=== PATIENT | male | born 1960 | race African-American/Black ===

== ENCOUNTER 2018-09-09 18:23 | Inpatient (IN) ==
[2018-09-09] MEDS ORDERED: NS 1,000 ML IV ONE (19:16)
--- NOTE | 2018-09-09 19:30 | PROVIDER DOCUMENTATION ---
HPI-General Adult - General Chief Complaint: Altered Mental Status Stated Complaint: AMS/COMBATIVE Time Seen by Provider: 09/09/18 19:15 Source: patient Allergies/Adverse Reactions: Patient Allergies Allergy/AdvReac Type Severity Reaction Status Date / Time No Known Allergies Allergy Verified 09/09/18 20:42 - History of Present Illness -Gen Adult Nature of Presenting Problems: He presents to the ed via ambulance with c/o ams worsening over the past 3 days. He is currently being treated from necrotizing fascititis of the right hip. He is a&ox1. He is unable to present a proper medical hx. a wound is covered on his right hip that is approximately 20cm in diameter with purulent drainage present. He is attempting to bite the nurse, who is at the bedside. [facility] was contacted and the patients attending nurse states that he was treated at for necrotizing fasciitis on 08/23/18 and had a debridement from Dr. Gregorio Del Real. Today he became combative around [id number]. He pulled his wound vac off of his incision site. Location of Pain/Injury: reports: other (right hip) Pain Radiation: reports: no radiation Quality of Pain: reports: sharp Severity: reports: severe Onset/Duration: reports: 3 days ago, 4 days ago Timing: reports: still present Context/Activities at Onset: reports: none Associated Symptoms: reports: fever/chills, rash. denies: back/neck pain, diaphoresis, genitourinary problems, muscle aches, shortness of breath, syncope Similar Symptoms Previously?: Yes Recently seen or treated by another doctor?: No Review of Systems - Adult - REVIEW OF SYSTEMS - ADULT ROS:: unobtainable per condition Constitutional: reports: no symptoms reported Eyes: reports: no symptoms reported Ears, Nose, Mouth & Throat: reports: no symptoms reported Cardiovascular: reports: no symptoms reported Respiratory: reports: no symptoms reported Gastrointestinal: reports: no symptoms reported Genitourinary: reports: no symptoms reported Musculoskeletal: reports: no symptoms reported Integumentary: reports: no symptoms reported Neurological: reports: no symptoms reported Psychiatric: reports: no symptoms reported Endocrine: reports: no symptoms reported Hematologic/Lymphatic: reports: no symptoms reported Allergic/Immunologic: reports: no symptoms reported All Other Systems: Reviewed and Negative Past History - Adult - PAST MEDICAL HISTORY-ADULT Review of Records: reports: Old Records Reviewed, Nursing Assessment Review, Medications Reviewed, Social history reviewed & non-contributory. Major Childhood Illnesses: reports: denies history Cardiovascular: reports: denies history Respiratory: reports: denies history Gastrointestinal: reports: denies history Obstetrical/Gynecological: reports: denies history Genitourinary: reports: denies history Musculoskeletal: reports: denies history Neurological: reports: denies history Endocrine/Immune: reports: denies history Other Conditions: reports: denies history - IMMUNIZATION STATUS Childhood Immunizations: See Nurse Assessment Flu Vaccine: See Nurse Assessment - FAMILY HISTORY Family History: reviewed, not pertinent - SOCIAL HISTORY Smoking: denies Substance Use: alcohol (former) Living Situation: care facility Physical Exam-General - PHYSICAL EXAM-ADULT Initial Vital Signs Reviewed: Yes - CONSTITUTIONAL General Appearance: appears well, alert, no apparent distress - EYES Eyes: PERRL/EOMI - HEAD, EARS, NOSE, MOUTH & THROAT HENMT: normocephalic/atraumatic, moist mucous membranes, normal ENT inspection - NECK Neck: non-tender, full range of motion, supple, normal inspection - RESPIRATORY Respiratory: chest non-tender, lungs clear, normal breath sounds - CARDIOVASCULAR Cardiovascular: normal peripheral pulses, regular rate, rhythm - GASTROINTESTINAL (ABDOMEN) Abdominal Exam: normal bowel sounds, non tender, soft - LYMPHATIC Lymphatic: no adenopathy - MUSCULOSKELETAL Back Exam: normal inspection, no CVA tenderness, no vertebral tenderness Extremity: normal range of motion, non-tender, normal gait, normal inspection - SKIN Integumentary: normal color, normal turgor, other (necrotizing fasciitis to right hip approx 20cm in diameter.) - NEUROLOGIC Neurologic: motor weakness, other (AMS). negative: facial droop, focal weakness - PSYCHIATRIC Psych/Mental Status: disoriented x 3 Progress - PLAN OF CARE/RESULTS Progress/Plan/Lab Results: Orders Category Date Time Status Saline Loc NOW Care 09/09/18 19:16 Active BLOOD CULTURE [BLDCUL] Stat Lab 09/09/18 19:16 Uncollected CBC WITH DIFF [HEME] Stat Lab 09/09/18 19:16 Uncollected COMPREHENSIVE METABOLIC PANEL [CHEM] Stat Lab 09/09/18 19:16 Uncollected LACTATE, PLASMA [CHEM] Stat Lab 09/09/18 19:16 Uncollected WOUND CULTURE INC GRAM STAIN [RM] Stat Lab 09/09/18 19:20 Uncollected 0.9% Sodium Chloride Inj [Ns] 1,000 ml Med 09/09/18 19:16 Active IV 999 mls/hr Result Diagrams: 09/09/18 19:45 09/09/18 19:45 - XRAY 1 XRAY: Bilateral XRAY Study: Chest Impression: Abnormal (COMMENT: There is a PICC line on the right with its tip in the superior vena cava. The right hemidiaphragm is elevated. There are no previous studies. There is apparent atelectasis or fibrosis over the lingula. IMPRESSION: Lingular atelectasis.) Comparison with other Films: no prior study - CT/MRI 1 CT Study: Head Impression: Abnormal (OMMENT: There are no previous studies available for comparison. There is no evidence of mass effect, bleed, abnormal extra-axial fluid collection, or hydrocephalus. There is mild cerebral atrophy. There is some lucency in the external capsules bilaterally consistent with chronic microvascular change. The visualized paranasal sinuses are clear. The calvarium is intact. IMPRESSION: Minimal chronic microvascular changes and mild atrophy. No evidence of acute disease.) Comparison with other Films: no prior study - CONSULTS/PCP/HOSPITALIST Notification #1 *Consult/PCP/Hospitalist*: Dr. Lowe Time Discussed: 21:05 Consult Disposition: Admit Departure - Departure Date of Disposition Decision: 09/09/18 Time of Disposition Decision: 21:01 DIAGNOSIS: Hepatic encephalopathy, Necrotizing fasciitis Altered mental status Qualifiers: Altered mental status type: unspecified Qualified Code(s): R41.82 - Altered mental status, unspecified Disposition: ADMITTED INPATIENT 09 Certified Medical Emergency: Emergent Condition: Stable Referrals and Follow-Ups: None,PCP [Primary Care Provider] - - Critical Care Note This patient required my direct & personal management of CC.: No Attestation - Physician/ BLADIMIR Attestation Patient care was provided by Advanced Practice Provider:: Yes Advanced Practice Provider:: Sami Newsome Advanced Practice Provider documentation review:: The Mid-level provider documentation, treatment plan and medical decision making was reviewed by the physician who agrees with all treatment and medical decision making by the MLP. The physician spent face to face time with patient:: No Advanced Practice Provider documentation review:: Supervising physician onsite and consulted in the evaluation and care of this patient. The physician did not have a face to face encounter with the patient.
[2018-09-09] MEDS ORDERED: BENADRYL IV ONE (20:14)
[2018-09-09] MEDS ORDERED: ATIVAN IV ONE ×2 (20:14→23:06)
[2018-09-09 20:40] LABS: BASO# 0.05 X1000 (0.0-0.2); BASO% 0.5 % (0.0-0.8); EOS# 0.42 X1000 (0.0-0.7); EOS% 3.9 % (0.0-10.0); HEMATOCRIT 27.6 % (42.0-52.0); HEMOGLOBIN 8.4 g/dL (14.0-18.0); IMM GRAN# 0.02 X1000 (0.0-0.04); IMM GRAN% 0.2 % (0.0-0.5); LYMPH# 1.96 X1000 (1.2-3.4); LYMPH% 18.3 % (20.5-51.1); MCH 32.6 PG (27-31); MCHC 30.4 g/dL (33-37); MONO# 0.95 X1000 (0.11-0.59); MONO% 8.9 % (1.7-9.3); MPV 9.9 FL (7.4-10.4); NEUT# 7.33 X1000 (1.4-6.5); NEUT% 68.2 % (42.2-75.2); PLT 350 X1000 (130-400); RBC 2.58 XMIL (4.7-6.1); WBC 10.73 X1000 (4.8-10.8)
[2018-09-09 20:49] LABS: UR AMPHETAMINES QUAL NONE DETECTED (NONE DETECT); UR BARBITUATES QUAL NONE DETECTED (NONE DETECT); UR BENZODIAZEPIN QUAL PRESUMPTIVE POSITIVE (NONE DETECT); UR CANNABINOIDS QUAL NONE DETECTED (NONE DETECT); UR COCAINE QUAL NONE DETECTED (NONE DETECT); UR METHADONE QUAL NONE DETECTED (NONE DETECT); UR OPIATES QUAL PRESUMPTIVE POSITIVE (NONE DETECT); UR OXYCODONE QUAL PRESUMPTIVE POSITIVE (NONE DETECT); UR PCP QUAL NONE DETECTED (NONE DETECT)
--- NOTE | 2018-09-09 20:51 | Diag Imaging Result Doc PS360 ---
EXAM: CHEST-PORTABLE 09/09/2018 HISTORY: ams TECHNIQUE: AP portable at 2026 COMMENT: There is a PICC line on the right with its tip in the superior vena cava. The right hemidiaphragm is elevated. There are no previous studies. There is apparent atelectasis or fibrosis over the lingula. IMPRESSION: Lingular atelectasis. Electronically signed by Alex Messer 09/09/2018 8:48 PM
[2018-09-09 20:53] LABS: ALB/GLOB RATIO 0.9; ALBUMIN 3.1 g/dL (3.5-5.0); CALCIUM 8.9 mg/dL (8.8-10.2); CREATININE 3.6 mg/dL (0.7-1.2); POTASSIUM 4.4 mmol/L (3.5-5.1); TOTAL BILIRUBIN 0.87 mg/dL (0.20-1.00); TOTAL PROTEIN 6.6 g/dL (6.3-8.3)
--- NOTE | 2018-09-09 20:54 | Diag Imaging Result Doc PS360 ---
EXAM: CT HEAD W/O CONTRAST 09/09/2018 HISTORY: ams TECHNIQUE: This exam was performed using automated exposure control, adjustment of mA or kV according to patient size, and/or use of iterative reconstruction technique. COMMENT: There are no previous studies available for comparison. There is no evidence of mass effect, bleed, abnormal extra-axial fluid collection, or hydrocephalus. There is mild cerebral atrophy. There is some lucency in the external capsules bilaterally consistent with chronic microvascular change. The visualized paranasal sinuses are clear. The calvarium is intact. IMPRESSION: Minimal chronic microvascular changes and mild atrophy. No evidence of acute disease. Electronically signed by Alex Messer 09/09/2018 8:52 PM
[2018-09-09] MEDS ORDERED: VANCOMYCIN IV PER PHARMACY MISC SCH (22:42)
[2018-09-09] MEDS ORDERED: ZOFRAN IV PRN (22:42)
[2018-09-10] MEDS: NS 1,000 ML IV SCH ×2 (00:29→10:52)
[2018-09-10] MEDS: MAXIPIME 2 GM in NS 100 ML IV SCH ×3 (00:29→21:56)
--- NOTE | 2018-09-10 01:10 | HISTORY AND PHYSICAL ---
PRIMARY CARE PHYSICIAN: Unknown. CHIEF COMPLAINT: Altered mental status. HISTORY OF PRESENTING ILLNESS: A 58-year-old male with a history of necrotizing fasciitis, right hip ulcer, coronary artery disease, diabetes mellitus type 2, hep C, CHF, chronic kidney disease, who was at [facility]. Was sent from that facility due to patient being altered, agitated, pulling off his wound VAC and subsequently he was brought to the emergency department. At the ED he was evaluated. He was moderately altered. Not much history could be obtained from him and most of the history is obtained from previous ER charting. PAST MEDICAL HISTORY: Necrotizing fasciitis, right hip ulcer, coronary artery disease, diabetes mellitus type 2 on insulin, alcohol abuse, hep C, hypertension, anemia, CHF, diastolic dysfunction, anemia unspecified, chronic kidney disease. PAST SURGICAL HISTORY: Unknown. ALLERGIES: No known drug allergies. CURRENT MEDICATIONS: Include Aldactone 25 mg half tablet p.o. daily, aspirin 81 mg p.o. daily, atorvastatin 20 mg p.o. at bedtime, Coreg 6.25 mg p.o. b.i.d., cefepime 2 g IV q.12 hours, Plavix 75 mg p.o. daily, gabapentin 300 mg p.o. t.i.d., lisinopril 10 mg p.o. daily, isosorbide mononitrate ER 30 mg p.o. daily, [place] 5 mg 1 p.o. q.6 hours, Protonix 20 mg p.o. daily, Seroquel 25 mg p.o. at bedtime, vancomycin dose unknown. SOCIAL HISTORY: Unknown except for patient has a history of alcohol abuse. FAMILY HISTORY: Unknown. REVIEW OF SYSTEMS: Unable to obtain due to patient being altered. PHYSICAL EXAMINATION: GENERAL: The patient seems somewhat lethargic and altered. VITAL SIGNS: Temperature 99.3 degrees, pulse 97, respirations 20, blood pressure 107/89. HEENT: Atraumatic, normocephalic. NECK: No masses. CHEST: Rhonchi. CARDIOVASCULAR: Regular rate and rhythm. ABDOMEN: Soft, positive bowel sounds. EXTREMITIES: There is a right hip ulcer. GENITOURINARY: No bladder distention. SKIN: Warm. NEUROLOGIC: He is moderately altered and confused. LABORATORIES AND STUDIES: WBC 10.73, hemoglobin 8.4, hematocrit 27.6, platelets 350,000. Sodium 142, potassium 4.4, chloride 114, CO2 is 12, BUN is 39, creatinine 3.6, glucose is 127. Toxicology shows opioids, oxycodone and benzodiazepines. ASSESSMENT: A 58-year-old male with a history of multiple medical problems including necrotizing fasciitis, right hip ulcer, coronary artery disease, diabetes mellitus type 2, hepatitis C, congestive heart failure, chronic kidney disease, who apparently was at [facility] when he was agitated, pulled off his wound VAC, is mildly confused. He was brought to the emergency department. He was evaluated here. He seemed moderately altered and subsequently he will require admission for further management. 1. Altered mental status, multifactorial. 2. Necrotizing fasciitis. 3. Right hip ulcer. 4. Diabetes mellitus type 2, on insulin. 5. Hypertension. 6. Anemia, unspecified. 7. Chronic kidney disease. PLAN: 1. We will admit patient to ICU. 2. We will continue with neuro checks closely. 3. We will obtain urine sample and check blood cultures and start patient on his IV antibiotics. 4. We will put a wound VAC to his right hip region. 5. Put patient on glycemic protocol with sliding scale insulin regimen. 6. We will monitor his hemoglobin and hematocrit closely and check iron studies. 7. Monitor blood pressure closely. 8. Restart other home medications. 9. We will put DVT prophylaxis with SCDs. 10. We will continue to follow, and reassess and make further recommendation based on his clinical course. cc: Charli Lowe MD
[2018-09-10] MEDS ORDERED: VANCOMYCIN 1,750 MG in NS 250 ML IV SCH (02:30)
[2018-09-10] MEDS ORDERED: HUMULIN R SUBQ SCH (07:00)
[2018-09-10 08:30] LABS: CREATININE 3.6 mg/dL (0.7-1.2); POTASSIUM 4.4 mmol/L (3.5-5.1)
[2018-09-10 08:48] LABS: BASO# 0.05 X1000 (0.0-0.2); BASO% 0.6 % (0.0-0.8); EOS# 0.35 X1000 (0.0-0.7); HEMATOCRIT 30.1 % (42.0-52.0); HEMOGLOBIN 9.1 g/dL (14.0-18.0); LYMPH# 1.97 X1000 (1.2-3.4); LYMPH% 22.5 % (20.5-51.1); MCH 32.6 PG (27-31); MCHC 30.2 g/dL (33-37); MCV 107.9 FL (81-99); MONO# 0.83 X1000 (0.11-0.59); MONO% 9.5 % (1.7-9.3); MPV 9.5 FL (7.4-10.4); NEUT# 5.57 X1000 (1.4-6.5); NEUT% 63.4 % (42.2-75.2); PLT 332 X1000 (130-400); RBC 2.79 XMIL (4.7-6.1); RDW 14.2 % (11.5-14.5); WBC 8.77 X1000 (4.8-10.8)
[2018-09-10 08:56] LABS: BANDS 4 % (0-1); LYMPHS 22 % (21-51); MONO 12 % (1-9); SEGS 62 % (42-75)
[2018-09-10] MEDS: DILAUDID IV PRN ×2 (15:33→23:25)
--- NOTE | 2018-09-10 17:28 | PROGRESS NOTE ---
DATE: 09/10/2018 SUBJECTIVE: The patient is confused. OBJECTIVE: Vital Signs: As follows: Temperature is 97.4, pulse 91, respiratory 16, blood pressure 103/57, oxygen 99%. HEENT: Atraumatic, normocephalic. Cardiovascular : S1, S2. Respiratory system: Has evidence of good air entry bilaterally. Abdomen: Soft , nontender. No masses felt. Extremities: Has left BKA, as well as edema in the right lower extremity. Has a large wound on the right hip area. LABORATORY DATA: WBC is 8.8, hematocrit 30.1, with a platelet count of 232, 000. Sodium is 148, potassium 4.4, chloride is 181, bicarb is 11, BUN is 38, creatinine is 2.6. AST 18, ALT is 102, Ammonia level was 62. ASSESSMENT AND PLAN: 1. Encephalopathy. Patient's ammonia level is noted to be raised. Will start patient on lactulose. We will obtain an MRI of the brain. 2. Chronic kidney disease. Follow up on renal function. Will order nephrotoxic agent. 3. Right hip ulcer. Follow up on wound culture. Maintain patient on antibiotics. 4. Diabetes mellitus. Maintain patient on sliding scale insulin and monitor blood sugar levels. 5. Hypertension. Blood pressure on the low side. Will avoid antihypertensive medications at this time. 6. Abnormal liver function tests. Obtain hepatitis panel, ARAMIS level, ferritin level and also abdominal ultrasound. 7. Anemia. Follow up on hemoglobin, hematocrit. Transfuse PRBCs as needed. 8. DVT prophylaxis. SCDs. cc: Taiwo Camacho MD MTDJoseph
--- NOTE | 2018-09-10 18:16 | Diag Imaging Result Doc PS360 ---
EXAM: US ABDOMEN-COMPLETE 09/10/2018 HISTORY: abn lfts TECHNIQUE: Abdominal ultrasound COMMENT: The pancreatic head and body are unremarkable in appearance. The aorta and inferior vena cava are normal in their visible. The liver is inhomogeneous hyperechoic. There is antegrade flow in the portal vein. The gallbladder is clear and nontender. The common bile duct measures 4 mm. The kidneys are without evidence of hydronephrosis or mass. The spleen is not enlarged. There are no abnormal fluid collections. IMPRESSION: Hepatic steatosis. No evidence of acute disease. Electronically signed by Alex Messer 09/10/2018 6:13 PM
--- NOTE | 2018-09-10 20:03 | GENERAL SURGERY CONSULTATION ---
DATE: 09/10/2018 HPI: This 58-year-old gentleman with a history of hepatitis C is at [facility]. He at some point in the past had debridement of a right hip necrotizing fasciitis and has been treated with wound VAC therapy, became agitated today, possibly encephalopathic and pulls wound VAC off and he is transferred here for management of altered mental status. REVIEW OF SYSTEMS: Limited but 10 point negative other what mentioned HPI. MEDICAL HISTORY: Necrotizing fasciitis, chronic wound in his right hip, coronary disease, hepatitis C, diabetes, hypertension, history of alcohol abuse, chronic kidney disease, heart failure. SURGICAL HISTORY: Excisional debridement right hip otherwise unclear. SOCIAL HISTORY: He does have a history of alcohol use. FAMILY HISTORY: Unobtainable. PHYSICAL EXAM: He is afebrile, pulse is in the 80s, blood pressure 117/60, oxygen saturation 98%.General: He is alert. HEENT: No scleral icterus. Cardiovascular: Normal rate. Pulmonary: No increased work of breathing. Abdomen: Soft. Integument: Warm, dry. Musculoskeletal: There is a large granulating hip wound to the right greater trochanteric area. There is no necrosis and no purulence. Lower extremities are well perfused. Neurologic: He is alert, somewhat conversant but does not really answer questions entirely appropriately. Psychiatric: A little agitated. LAB: White count is 8, hematocrit 30, platelets 332,000. Creatinine is 3.6, bilirubin is normal, AST, ALT and alkaline phosphatase are elevated, ammonia is 62, lactate 0.8, albumin is 3.1. UDS is positive for oxycodone, benzodiazepines. CT of the head shows chronic microvascular changes and atrophy. ASSESSMENT AND PLAN: A 58-year-old gentleman with a large right hip wound, he presented with altered mental status most likely hepatic encephalopathy. Will ask Isabela Medina to place wound VAC back on his wound yesterday. I do not have any the surgical records not sure where this was performed but will continue to follow along. cc: Lynn Groves MD
[2018-09-10] MEDS: LACTULOSE PO SCH (20:38)
[2018-09-11] MEDS ORDERED: HALDOL IV ONE (00:19)
[2018-09-11] MEDS ORDERED: HALDOL ONE (00:29)
[2018-09-11 05:38] LABS: ALB/GLOB RATIO 0.9; ALBUMIN 3.1 g/dL (3.5-5.0); CALCIUM 9.2 mg/dL (8.8-10.2); CREATININE 3.1 mg/dL (0.7-1.2); POTASSIUM 4.2 mmol/L (3.5-5.1); TOTAL BILIRUBIN 0.85 mg/dL (0.20-1.00); TOTAL PROTEIN 6.6 g/dL (6.3-8.3)
[2018-09-11 05:55] LABS: BASO# 0.08 X1000 (0.0-0.2); BASO% 0.5 % (0.0-0.8); EOS# 0.32 X1000 (0.0-0.7); HEMATOCRIT 28.8 % (42.0-52.0); HEMOGLOBIN 8.5 g/dL (14.0-18.0); IMM GRAN# 0.04 X1000 (0.0-0.04); IMM GRAN% 0.3 % (0.0-0.5); LYMPH% 22.4 % (20.5-51.1); MCH 32.6 PG (27-31); MCHC 29.5 g/dL (33-37); MCV 110.3 FL (81-99); MONO# 1.35 X1000 (0.11-0.59); MONO% 8.6 % (1.7-9.3); MPV 9.5 FL (7.4-10.4); NEUT# 10.34 X1000 (1.4-6.5); NEUT% 66.2 % (42.2-75.2); PLT 371 X1000 (130-400); RBC 2.61 XMIL (4.7-6.1); RDW 14.6 % (11.5-14.5); WBC 15.63 X1000 (4.8-10.8)
[2018-09-11] MEDS: LACTULOSE PO SCH ×5 (09:32→22:32)
[2018-09-11] MEDS: STERILE WATER INJ. INJ PRN ×2 (10:00→20:36)
[2018-09-11] MEDS: GEODON IM PRN ×2 (10:00→20:36)
[2018-09-11] MEDS: MAXIPIME 2 GM in NS 100 ML IV SCH ×2 (10:05→21:35)
[2018-09-11] MEDS: DILAUDID IV PRN ×3 (10:08→21:50)
[2018-09-11] MEDS ORDERED: NS 1,000 ML IV SCH (12:45)
--- NOTE | 2018-09-11 14:38 | GENERAL SURGERY PROGRESS NOTE ---
DATE: 09/11/2018 SUBJECTIVE: Remains agitated, encephalopathic. No fevers. OBJECTIVE: Vital Signs: Pulse has been in low 100s, blood pressure 103/58. Apparently, there are some questions whether or not this may be drug withdrawal. LABORATORY: Review of his labs: White count is 15, hematocrit 28, creatinine is 3.1. PHYSICAL EXAMINATION: General: Right wound dressing is in place. He is agitated, restrained. Cardiovascular: Tachycardic. Exam: There is no purulence from his wound. ASSESSMENT AND PLAN: A 58-year-old gentleman with right hip wound, apparently status post excisional debridement for necrotizing process in the past. He is encephalopathic and likely withdrawing from some medication that he is taking illicitly. Will place a wound VAC. I have talked to Isabela about him. Otherwise, continue local wound care, medical management. cc: Lynn Groves MD
--- NOTE | 2018-09-11 14:54 | CONSULTATION ---
DATE OF CONSULTATION: 09/11/2018 Mr. Boyce is 58 years old, and he was admitted with altered mental state. There is reported previous history of ethanol abuse, and he presented at this time with urine drug screen positive for opiates, including oxycodone, also benzodiazepines. The medication [facility] does not include a benzodiazepine and did include hydrocodone/acetaminophen, but not specifically oxycodone. Report is that he appeared to be restless, agitated, and confused. Workup here includes noncontrast CT of the head showing usual subcortical white matter changes. WBC count was initially 10,000, later 15,000. There is anemia. BUN has been elevated at 39, 40. He has mildly elevated blood sugars. Chemistry profile shows elevated liver enzymes. Ammonia in the 60s. I believe that MRI has been ordered but not done. He has been managed here with hydromorphone 0.5 mg 3 doses in the last 24 hours, haloperidol a few doses p.r.n., ziprasidone. I do not see any benzodiazepine listed administered this admission here. On exam, Mr. Boyce is awake. He seems alert but not attentive and he did not communicate. He did not speak when spoken to. He said a few words, but these were not in the form of communication with me at the bedside. He has full lateral eye movement spontaneously. He vigorously resisted my attempts at pupil exam. Facial motility is symmetric. Head and neck are unremarkable. There is no meningismus. He has good power in the limbs. There has been prior left distal leg amputation. Plantar response is silent on the other foot. IMPRESSION: Global encephalopathy, uncertain etiology, but features are consistent with delirium related to drug withdrawal, either ethanol and/or benzodiazepine. Other reasons for encephalopathy are not excluded. In light of his prior history as recorded, I suspect he may have a baseline cognitive impairment syndrome which would predispose him to more prominent and more protracted encephalopathy with any toxic or metabolic disturbance. I do not see evidence of MEDIA AID infection , increased intracranial pressure, focal neurologic deficit. I do not think we have to do anything urgently from a neurologic standpoint. MRI can be done when practical. We might consider EEG later but I do not think that would jacket changer today. Thanks for asking Neurology to see Mr. Boyce. cc: MD MARY Yuen III
--- NOTE | 2018-09-11 15:06 | EKG Report ---
Test Performed on : 09/09/2018 10:21:59 PM Test Reason : ED. No order in [place] Blood Pressure : / mmHG Vent. Rate : 104 BPM Atrial Rate : 104 BPM P-R Int : 154 ms QRS Dur : 074 ms QT Int : 366 ms P-R-T Axes : 035 056 103 degrees QTc Int : 481 ms Sinus tachycardia. with premature atrial complexes. with aberrant conduction. Nonspecific ST and T wave abnormality Abnormal ECG No previous ECGs available Confirmed by Gregorio Pendleton MD ([id number]) on 09/11/2018 3:55:01 PM
[2018-09-11] MEDS: HALDOL IM PRN ×2 (15:13→23:59)
--- NOTE | 2018-09-11 16:40 | PROGRESS NOTE ---
DATE: 09/11/2018 SUBJECTIVE: Patient is confused. OBJECTIVE: Vital Signs: Temperature is 96.6 degrees, pulse 103, blood pressure is 103/60, oxygen is 100%. HEENT: Atraumatic, normocephalic. Cardiovascular: S1, S2. Respiratory: Has evidence of good air entry bilaterally. Abdomen: Soft, nontender, no masses felt. Extremities: Left BKA. LABS: WBC is 15.63, hematocrit 28.8 with a platelet count of 273,000, sodium is 149, potassium 4.2, chloride 120, bicarb 10, BUN is 40, creatinine 3.1, AST 59, ALT 68, ammonia level is 63. ASSESSMENT AND PLAN: 1. Encephalopathy. Patient's ammonia level still raised. We will maintain patient on lactulose. MRI of the brain still pending. 2. Chronic kidney disease. Follow up on renal function. Avoid nephrotoxic agent. 3. Right hip ulcer. Wound Care consulted, surgery evaluation done. 4. Diabetes mellitus. Continue blood sugar monitoring as well as sliding scale insulin. 5. Hypertension. Will hold off on antihypertensive medications at this time. 6. Abnormal liver function test. Hepatitis panel pending, ARAMIS level is negative. Abdominal ultrasound shows a hepatic steatosis. 7. Anemia, follow up on hemoglobin, hematocrit, transfuse PRBC as needed. 8. Deep vein thrombosis prophylaxis SCD. cc: Taiwo Camacho MD MTDD
[2018-09-11] MEDS ORDERED: LASIX IV ONE (17:06)
[2018-09-11] MEDS: NS 1,000 ML IV SCH (17:18)
[2018-09-11 21:34] LABS: HEPATITIS PROFILE ACUTE SEE COMMENTS
[2018-09-12] MEDS ORDERED: VANCOMYCIN 1,800 MG in NS 250 ML IV SCH (05:00)
[2018-09-12] MEDS: NS 1,000 ML IV SCH (05:07)
[2018-09-12] MEDS: LACTULOSE PO SCH (05:52)
--- NOTE | 2018-09-12 07:05 | Diag Imaging Result Doc PS360 ---
EXAM: CHEST-PORTABLE 09/11/2018 HISTORY: NG tube placement TECHNIQUE: AP upright portable at 2308 COMMENT: There is an NG tube with its tip in the body of the stomach. IMPRESSION: NG tube in the stomach. Electronically signed by Alex Messer 09/12/2018 7:03 AM
--- NOTE | 2018-09-12 07:06 | Diag Imaging Result Doc PS360 ---
EXAM: CHEST/ABD TUBE PLACEMENT 09/11/2018 HISTORY: Retake for md TECHNIQUE: AP portable at 2352 COMMENT: There is an NG tube with its tip in the stomach. IMPRESSION: NG tube in the stomach. Electronically signed by Alex Messer 09/12/2018 7:03 AM
[2018-09-12] MEDS: HALDOL IM PRN (07:45)
[2018-09-12] MEDS: DILAUDID IV PRN ×2 (07:45→14:39)
--- NOTE | 2018-09-12 08:20 | Diag Imaging Result Doc PS360 ---
EXAM: CHEST-PORTABLE 09/12/2018 HISTORY: dyspnea TECHNIQUE: AP portable at 0757 COMMENT: The right hemidiaphragm is elevated as it was on 09/09/2018. There has been no significant change in the appearance of the chest since that time. IMPRESSION: Stable chest. Electronically signed by Alex Messer 09/12/2018 8:17 AM
[2018-09-12 08:24] LABS: ALLEN TEST YES; BE -20.9 mmoll (-3.0-3.0); BLOOD TYPE ARTERIAL; HCO3-(ACT) 8.6 mmoll (20.0-26.0); METHB 1.6 % (0.0-1.5); O2(CT) 12.5 mL/dL (15.0-23.0); O2HB 95.5 % (95.0-99.0); PCO2(98.6) 23 mmHg (35-45); PO2(98.6) 98 mmHg (60-100); SAMPLE BLOOD; SAO2 98.8 % (95.0-100.0); THB 9.2 g/dL (11.5-17.4)
[2018-09-12 08:30] LABS: MODALITY ROOM AIR
[2018-09-12] MEDS ORDERED: SODIUM BICARBONATE 8.4% IV PUSH ONE (08:49)
[2018-09-12] MEDS ORDERED: CUBICIN 500 MG in NS 100 ML IV SCH ×4 (09:15)
[2018-09-12 09:21] LABS: INR 1.18; PROTIME 15.9 Seconds (11.0-16.0)
[2018-09-12 09:25] LABS: HEMOGLOBIN A1C 7.7 % (4.8-6.0)
[2018-09-12 09:45] LABS: BASO# 0.03 X1000 (0.0-0.2); BASO% 0.3 % (0.0-0.8); HEMATOCRIT 29.9 % (42.0-52.0); HEMOGLOBIN 8.6 g/dL (14.0-18.0); LYMPH# 1.51 X1000 (1.2-3.4); LYMPH% 15.3 % (20.5-51.1); MCH 32.5 PG (27-31); MCHC 28.8 g/dL (33-37); MCV 112.8 FL (81-99); MONO# 0.97 X1000 (0.11-0.59); MONO% 9.9 % (1.7-9.3); MPV 9.9 FL (7.4-10.4); NEUT# 7.23 X1000 (1.4-6.5); NEUT% 73.5 % (42.2-75.2); PLT 314 X1000 (130-400); RBC 2.65 XMIL (4.7-6.1); RDW 14.9 % (11.5-14.5); WBC 9.84 X1000 (4.8-10.8)
[2018-09-12 09:46] LABS: ALB/GLOB RATIO 1.1; ALBUMIN 3.1 g/dL (3.5-5.0); MAGNESIUM 1.5 mg/dL (1.5-2.7); PHOSPHORUS 6.1 mg/dL (2.7-4.5); TOTAL BILIRUBIN 0.72 mg/dL (0.20-1.00); TOTAL PROTEIN 5.8 g/dL (6.3-8.3)
--- NOTE | 2018-09-12 09:50 | CONSULTATION ---
DATE OF CONSULTATION: 09/12/2018 CONCLUSION: The patient has one of two blood cultures positive for Enterococcus faecium. This could be a contaminant or it could be a pathogen. I suspect that it is a pathogen. The patient does have a PICC and the Enterococcus could have come from the PICC. Also, the patient had a severe infection in his right hip and a culture taken from the hip is growing an organism. It is a gram-positive coccus and it may be the same Enterococcus that is in the patient's blood. RECOMMENDATIONS: Pending further culture results, I have switched the patient from vancomycin and cefepime to daptomycin. I have modified the patient's dose of daptomycin because of his renal failure. DISCUSSION: The patient is delirious. He is unable to provide a history and no family member is present. According to chart, the patient was admitted to the hospital with an altered mental status. He had recently a necrotizing fasciitis involving the right hip. He appears to be recovering well from that. His CBC shows a white count of 15,630, hemoglobin 8.5, and platelet count 371,000. The creatinine is 3.1. GFR is 25. The patient's blood gases show a pH of 7.1, pO2 of 98, and a pCO2 of 23. Chest x-ray shows lingular atelectasis. One of two blood cultures grew Enterococcus and the right hip is growing two types of gram-positive cocci. CT scan of the head showed microvascular changes and atrophy. PAST MEDICAL HISTORY: Positive for necrotizing fasciitis, right hip ulcer, coronary artery disease, diabetes mellitus, alcohol abuse, hepatitis C, hypertension, anemia, congestive heart failure, anemia, and chronic kidney disease. PAST SURGICAL HISTORY: Not known for sure but if the patient indeed had a necrotizing fasciitis, he would have required probably multiple surgeries on that problem. ALLERGIES: The patient has no known drug allergies. HOME MEDICATIONS: Include Aldactone, aspirin, atorvastatin, Coreg, cefepime, Plavix, gabapentin, lisinopril, Isordil, [place], Protonix, Seroquel. SOCIAL HISTORY: The patient has a history of alcohol abuse. FAMILY HISTORY: Unknown. PHYSICAL EXAMINATION: Vital Signs: Temperature is 98 degrees, pulse 107, respirations 29, blood pressure 111/77. The patient is 58 years old. He is 5 feet 11 inches tall and weighs 200 pounds. General: This is a delirious, middle-aged male. He is in no acute distress, however. Head, Eyes, Ears, Nose, and Throat: No drainage noted from the nose or ears. I did not get a good look at the patient's mouth. From what I did see, I did not see any white patches on his tongue. Neck: No stiffness. Lungs: Clear to auscultation. Cardiovascular: Regular heart rate. Abdomen: Soft and nontender. Bone, Joints, and Muscles: The patient has a large wound on the right hip. The VAC is in place over the wound. A picture of it showed that the wound had beefy red tissue and there was nothing that appeared to be purulent or necrotic. The patient has a left [id number] amputation. Neurologic: The patient, as mentioned above, seems delirious. He did not follow requests to move his extremities or close his eyes. Integument: No rash noted. Thank you for the consult. cc: Segun Coffey MD
[2018-09-12] MEDS: SODIUM BICARBONATE 8.4% 150 MEQ in D5W 1,000 ML IV SCH ×2 (10:00→22:02)
[2018-09-12] MEDS ORDERED: MAGNESIUM SULFATE 1 GM/D5W 1 GM/100 ML IVPB IV ONE (10:11)
[2018-09-12] MEDS ORDERED: HUMULIN R 100 UNIT in NS 99 ML IV SCH (10:48)
[2018-09-12] MEDS ORDERED: ZOFRAN PO PRN (10:48)
[2018-09-12] MEDS ORDERED: HUMULIN R IV ONE (10:48)
[2018-09-12] MEDS ORDERED: D50W SYRINGE IV PRN (10:48)
[2018-09-12 10:52] LABS: BANDS 2 % (0-1); EOS 4 % (1-10); LYMPHS 16 % (21-51); MONO 4 % (1-9); SEGS 74 % (42-75)
[2018-09-12 10:53] LABS: HYPOCHROM 1+
--- NOTE | 2018-09-12 11:18 | Diag Imaging Result Doc PS360 ---
EXAM: KUB ABDOMEN 09/12/2018 HISTORY: abdominal pain TECHNIQUE: KUB COMMENT: There is generalized sclerosis of the regional skeleton particularly in the pelvis. This is somewhat heterogeneous in the left femoral head. There are calcifications in the vasa deferentia. There is no evidence of bowel obstruction organomegaly or mass. There are stents in both superficial femoral arteries. IMPRESSION: Osteosclerosis. This may be result of secondary hyperparathyroidism, however the possibility of osseous metastatic disease cannot be excluded. No evidence of bowel obstruction. Electronically signed by Alex Messer 09/12/2018 11:15 AM
[2018-09-12 14:02] LABS: ALLEN TEST YES; BLOOD TYPE ARTERIAL; HCO3-(ACT) 11.6 mmoll (20.0-26.0); METHB 1.3 % (0.0-1.5); O2HB 90.6 % (95.0-99.0); PCO2(98.6) 30 mmHg (35-45); PO2(98.6) 60 mmHg (60-100); SAMPLE BLOOD; SAO2 93.5 % (95.0-100.0); THB 9.4 g/dL (11.5-17.4)
[2018-09-12 14:03] LABS: MODALITY ROOM AIR; pH(98.6) 7.15 (7.35-7.45)
[2018-09-12 14:04] LABS: CREATININE 3.8 mg/dL (0.7-1.2); MAGNESIUM 1.7 mg/dL (1.5-2.7); PHOSPHORUS 5.9 mg/dL (2.7-4.5); POTASSIUM 4.5 mmol/L (3.5-5.1)
[2018-09-12] MEDS: ATIVAN IV PRN (14:40)
--- NOTE | 2018-09-12 14:43 | NEPHROLOGY CONSULTATION ---
DATE: 09/12/2018 REASON FOR ADMISSION: Altered mental status. REASON FOR CONSULTATION: Acute kidney injury associated with severe acidosis. CONSULTING PHYSICIAN: Dr. Marija Gonzalez. HISTORY OF PRESENT ILLNESS: Mr. Boyce is a 58-year-old male, who has a been followed for necrotizing fasciitis by the wound clinic. The patient is a resident at [facility]. He was sent from this facility with altered mental status, severe agitation and pulling his wound VAC off of his right hip. In the emergency room he was evaluated and was found to have a white count of 10.7, BUN of 39, creatinine of 3.6. Toxicology showed positive for opioids, oxycodone, and benzodiazepines. He was hypotensive in the emergency room and, due to his altered mental status with necrotizing fasciitis, the patient was admitted to ICU. During his hospitalization, Dr. Groves has been consulted for evaluation and continued treatment of his right hip fasciitis. Dr. Segun Coffey has been consulted earlier this morning for assistance with antibiotics for blood cultures with positive Enterococcus faecium and wound culture with gram- positive cocci. Dr. Murray has been consulted for his continued encephalopathy and agitation. PAST MEDICAL HISTORY: Noted to be current treatment for necrotizing fasciitis to right hip ulcer, coronary artery disease, diabetes mellitus type 2 insulin dependent, alcohol abuse, hepatitis C, hypertension, anemia, congestive heart failure, diastolic dysfunction, anemia, unspecified chronic kidney disease although we have no old records. PREVIOUS SURGICAL HISTORY: Unknown with continued treatment and debridement of his right hip. SOCIAL HISTORY: Unknown. He is a resident of [facility]. FAMILY HISTORY: Unknown. ALLERGIES: Listed as no known drug allergies. HOME MEDICATIONS: Home medications include Aldactone, aspirin, atorvastatin, Coreg, cefepime, Plavix, gabapentin, lisinopril, isosorbide mono titrate, [place], Protonix, Seroquel, and vancomycin 1 dose this a.m. REVIEW OF SYSTEMS: Unable to obtain secondary to patient being sedated. He is currently restrained. No family is at the bedside. VITAL SIGNS: Temperature 96.6 degrees, blood pressure 138/54, heart rate 102, respirations are 30. He remains tachypneic. He has had 2600 in, 770 out with 370 to Arredondo catheter and 400 to his fecal bag. LABS: Sodium 150, potassium 5, chloride 124, CO2 8, BUN 47, creatinine 4, glucose 132 anion gap of 18, calcium 9, phosphorus 6.1, albumin 2.7. The patient's white count is 9.84, hemoglobin 8.6, hematocrit 29.9 with a platelet count of 314. ABGs: A pH 7.10, CO2 23, PO2 98 , bicarbonate 8.6, lactate of 0.8. This was on room air. He is currently on O2. The patient had a BNP greater than 35,000. He had serum acetone this morning showing small. IMAGING: Chest x-ray completed this a.m. shows stable. KUB shows osteosclerosis with questionable mets to the osseous. He does have old bilateral femoral stents. PHYSICAL EXAMINATION: General: This is a 58-year-old male resting quietly in bed. He is in no acute distress. He is currently sedated with bilateral upper wrist restraints. HEENT: Normocephalic, atraumatic. Conjunctiva is pale. Currently has dysconjugate pupils. Neck: Supple. Trachea midline. Unable to determine JVD. Cardiovascular: He is regular rate and rhythm on the monitor, tachycardic at times. Chest: He does have coarse breath sounds bilateral. Equal excursion. He is tachypneic. He is using his accessary muscles. Abdomen: Soft. Positive bowel sounds, hypoactive. Genitourinary: Arredondo catheter is in place. He has minimal urine out, approximately 200 today's shift. Extremities: He has a dressing to the right hip. Warm and dry. He has a left BKA. Abrasions and scarring are noted to the crowder on the right. Neurological: As above. ASSESSMENT AND PLAN: 1. Acute kidney injury. This appears to be possibly multifactorial. We will check urine electrolytes to determine if the patient is dehydrated. Ultrasound has been ordered to look for any obstruction. Arredondo catheter is in place. He currently has intravenous fluids infusing with bicarbonate at 100 and insulin per his blood sugar levels. No indications for hemodialysis at this time. 2. Electrolytes: Patient is hypernatremic, more than likely secondary to #1. He has a nasogastric tube that is currently clamped. We will evaluate need for free water to be placed in this. 3. Acid-base balance. The patient currently has 3 amps of sodium bicarbonate in D5W infusing at 100 mL an hour. Anion gap is 18. He is positive for acetones. This is currently being treated with an insulin drip. 4. Anemia. This remains low at 8.6. No indications for transfusion. We will defer to the primary care team for this. 5. Slightly elevated liver function tests. The patient has known hepatitis C. We will continue to monitor. I would like to thank you for allowing us to follow with this patient. Dictated by ANGEL Mcgrath for Dilip Carmona MD Face to face encounter, data reviewed, discussed with Eleanor Valdez on 09/13/18. I agree with the above assessment and plan of care. cc: ANGEL Mcgrath MD [facility]
--- NOTE | 2018-09-12 16:00 | PROGRESS NOTE ---
DATE: 09/12/2018 Mr. Boyce has been restless when not sedated. He has not communicated. There has not been any focal neurologic feature. On my exam now, while sedated, he is still with symmetric limb tone, relatively supple neck. There remains full lateral eye movement. IMPRESSION: Global encephalopathy, features consistent with delirium related to withdrawal. I do not have any new suggestion from neurologic standpoint. Depending on his clinical course, we might consider EEG and MRI when practical. Thanks for asking Neurology to see Mr. Boyce. cc: MD MARY Yuen III
[2018-09-12 16:49] LABS: URINE SOURCE CATH
[2018-09-12 16:51] LABS: BILIRUBIN URINE NEGATIVE (NEGATIVE); BLOOD URINE LARGE (NEGATIVE); COLOR YELLOW; GLUCOSE URINE TRACE mg/dL (NEGATIVE); KETONE URINE 10 mg/dL (NEGATIVE); LEUKOCYTES URINE SMALL (NEGATIVE); NITRITE URINE NEGATIVE (NEGATIVE); PROTEIN URINE 300 mg/dL (NEGATIVE); SP GRAVITY URINE 1.018; TURBIDITY URINE HAZY (CLEAR); UR EPITHELIAL CELLS >10 /HPF (<10); URINE BACTERIA NEGATIVE /HPF; URINE RBC TNTC /HPF (<10); URINE WBC TNTC /HPF (<10); UROBILINOGEN URINE NORMAL (NORMAL)
[2018-09-12 17:11] LABS: UR CREAT RANDOM 145.5 mg/dL (14-26); UR PROT RANDOM 378.1 mg/dL
[2018-09-12 17:32] LABS: ALLEN TEST YES; BE -15.3 mmoll (-3.0-3.0); BLOOD TYPE ARTERIAL; HCO3-(ACT) 12.7 mmoll (20.0-26.0); METHB 1.2 % (0.0-1.5); O2(CT) 13.8 mL/dL (15.0-23.0); PCO2(98.6) 38 mmHg (35-45); SAMPLE BLOOD; SAO2 88.2 % (95.0-100.0); THB 11.5 g/dL (11.5-17.4)
[2018-09-12 17:34] LABS: pH(98.6) 7.14 (7.35-7.45)
[2018-09-12 17:35] LABS: MODALITY ROOM AIR; O2HB 85.2 % (95.0-99.0); PO2(98.6) 48 mmHg (60-100)
[2018-09-12 17:44] LABS: CALCIUM 8.7 mg/dL (8.8-10.2); CREATININE 3.8 mg/dL (0.7-1.2); MAGNESIUM 1.8 mg/dL (1.5-2.7); PHOSPHORUS 6.2 mg/dL (2.7-4.5); POTASSIUM 4.4 mmol/L (3.5-5.1)
--- NOTE | 2018-09-12 17:44 | PROGRESS NOTE ---
DATE: 09/12/2018 SUBJECTIVE: The patient is lethargic and is exhibiting Kussmaul breathing. He is also oliguric. OBJECTIVE: Vital Signs: Temperature 98.6 degrees, blood pressure 113/58, heart rate 93, respirations 21, O2 saturation is 99% on 2 L nasal cannula. Urine output 770. General: This is a chronically ill-appearing, elderly male lying in bed, in no acute distress. Head: Normocephalic, atraumatic. Heart: S1, S2 normal. Tachycardic. Lungs: Equal air entry bilaterally. No wheezing. No rales. No rhonchi. Abdomen: Positive bowel sounds. Soft, nontender, nondistended. Extremities: The patient has a left oemnf-swg-[id number] amputation. No edema noted in the right leg. Neurologic: The patient is lethargic. He does move all 4 extremities. LABS: White blood cell count 9.8, hemoglobin 8.6, hematocrit 29, platelets 314, 000. ABG, pH 7.10, pCO2 23, PO2 98, bicarb 8, sodium 150, potassium 5, chloride 124, CO2 8, BUN 47, creatinine 4, glucose 132, A1c 7.7, phosphorus 6.1, magnesium 1.5. AST 74, ALT 55, alkaline phosphatase 377. ProBNP greater than 35,000. Albumin 3.1. Abdominal x-ray shows osteosclerosis. Chest x-ray shows a stable chest. ASSESSMENT AND PLAN: 1. Severe diabetic ketoacidosis. The patient will be started on an insulin drip as per the DKA protocol. 2. Metabolic encephalopathy. This is likely secondary to DKA and renal failure. We will continue to treat the underlying issues and monitor the patient's mental status closely. 3. Right hip infection. The wound culture is growing gram-positive cocci. Management as per Dr. Coffey and general surgery. 4. Bacteremia secondary to Enterococcus faecium. Continue with antibiotic therapy as directed by Dr. Coffey. 5. Acute kidney injury on chronic kidney disease. This appears to be worse today. We will change the patient to D5W with bicarb due to the patient's severe acidosis. We will also consult with the waiter/waitress second class. Urine studies have also been ordered. The patient is not making very much urine despite the amount of fluids that he has received so far. 6. Anion gap metabolic acidosis. This is secondary to DKA. Continue with the DKA protocol as ordered. 7. Hypernatremia. Will add free water flushes via the NGT. 8. Peripheral arterial disease. Aware. 9. Anemia. Stable. 10. Hepatitis C. Aware. 11. Diabetes mellitus type 2. The patient is currently on the DKA protocol. 12. Protein calorie malnutrition. The patient is n.p.o. at this time due to his altered mental status. 13. Elevated liver function tests. Multifactorial. The patient has hepatitis C and he is acutely ill. We will continue to monitor closely. GI is following. 14. Gastrointestinal prophylaxis. Will start the patient on IV Protonix. 15. Deep vein thrombosis prophylaxis. Will start the patient on heparin. cc: Marija Gonzalez MD MTDD
--- NOTE | 2018-09-12 18:28 | PROGRESS NOTE ---
DATE: 09/12/2018 REASON FOR CONSULT: AMS, r/o hepatic encephalopathy HISTORY OF PRESENT ILLNESS: Mr. Charly Boyce is a 58 year old man with history of IDDM2, CHF, CKD, CAD, chronic HCV, chronic anemia, and recent diagnosis and debridement of right hip necrotizing fasciitis who presented from rehab with AMS. Unable to obtain history from patient given AMS. REVIEW OF SYMPTOMS: Unable to obtain given AMS PAST MEDICAL HISTORY: (from chart) IDDM2, CHF, CKD, CAD, chronic HCV, and recent diagnosis and treatment of necrotizing fasciitis, anemia, history of alcohol abuse PAST SURGICAL HISTORY: Unknown. ALLERGIES: No known drug allergies. MEDICATIONS: Aldactone, aspirin, atorvastatin, Coreg, cefepime, Plavix, gabapentin, lisinopril, isosorbide mononitrate, [place], Protonix, Seroquel, vancomycin SOCIAL HISTORY: Unknown except for patient has a history of alcohol abuse. FAMILY HISTORY: Unknown. PHYSICAL EXAM VS: T 97.1 HR 98 RR 24 BP 105/75 98 RA GEN: awake, non-responsive, tremor HEENT: Sclerae anicteric. Moist mucous membranes. NGT in place Neck: No JVD. No lymphadenopathy Cardiac: Regular rate and rhythm, no murmurs. Lungs: CTAB, anteriorly Abdomen: soft, NT/ND, NABS, no rebound or guarding; rectal tube Extremities: Left BKA, No clubbing, cyanosis or edema. Skin: RLE excoriation Neurologic: confused, restrained, does not follow commands; no asterixis or clonus LABORATORY DATA Na 149 K 4.2 Cl 120 CO2 10 BUN 40 Cr 3.1 AG 18 WBC 9.8 Hgb 8.6 plts 341 MCV 110 INR 1.18 albumin 3.1 Tbili 0.85 AST 59 ALT 68 ALP 412 ABG 7.1// ammonia 63 lactate 0.8 IMAGING CXR: The right hemidiaphragm is elevated as it was on 09/09/2018. There has been no significant change in the appearance of the chest since that time. KUB IMPRESSION: Osteosclerosis. This may be result of secondary hyperparathyroidism , however the possibility of osseous metastatic disease cannot be excluded. No evidence of bowel obstruction. US ABD 2/3 COMMENT: The pancreatic head and body are unremarkable in appearance. The aorta and inferior vena cava are normal in their visible. The liver is inhomogeneous hyperechoic. There is antegrade flow in the portal vein. The gallbladder is clear and nontender. The common bile duct measures 4 mm. The kidneys are without evidence of hydronephrosis or mass. The spleen is not enlarged. There are no abnormal fluid collections. IMPRESSION: Hepatic steatosis. No evidence of acute disease. HCT 2/2: IMPRESSION: Minimal chronic microvascular changes and mild atrophy. No evidence of acute disease. ASSESSMENT AND PLAN Mr. Charly Boyce is a 58 year old man with history of IDDM2, CHF, CKD, CAD, chronic HCV, chronic anemia, and recent diagnosis and debridement of right hip necrotizing fasciitis who presented from rehab with AMS. He was found have severe metabolic acidosis from likely DKA and SPENSER. Patient is on IVFs and insulin drip. Renal following. He was started on lactulose for possible hepatic encephalopathy; however, his imaging, labs, or imaging are inconsistent with cirrhosis. I suspect his AMS is likely from metabolic encephalopathy and not liver in etiology. He does have elevated mild transaminitis. Elevated ALP is likely bone in origin. Would obtain GGT to distinguish etiology of ALP #AMS: likely metabolic encephalopathy; ammonia at ULN; no h/o cirrhosis; HCT neg for acute changes - correct metabolic derangements #Abnormal LFTs; Likely from chronic HCV; US shows fatty liver but no cirrhosis #Elevated ALP: check GGT #SPENSER: likely from DKA: on IVFs: renal following; apprec recs #Metabolic acidosis: from DKA #IDDM2: DKA; insulin drip per primary #Necrotizing fasciitis: on abx per primary #Chronic hepatitis C: unknown if previously treated #Anemia: no overt bleeding; trend H/H daily, transfuse prn goal hgb 7-8 Will follow with you. Please call with questions or concerns. PASCALED
[2018-09-12] MEDS: HEPARIN SUBQ SCH (20:37)
[2018-09-12 21:43] LABS: CALCIUM 8.7 mg/dL (8.8-10.2); MAGNESIUM 1.7 mg/dL (1.5-2.7); PHOSPHORUS 6.5 mg/dL (2.7-4.5); POTASSIUM 4.2 mmol/L (3.5-5.1)
[2018-09-12 21:56] LABS: ALLEN TEST YES; BE -12.2 mmoll (-3.0-3.0); BLOOD TYPE ARTERIAL; HCO3-(ACT) 15.4 mmoll (20.0-26.0); METHB 1.3 % (0.0-1.5); O2(CT) 11.4 mL/dL (15.0-23.0); O2HB 95.7 % (95.0-99.0); PCO2(98.6) 33 mmHg (35-45); PO2(98.6) 78 mmHg (60-100); SAMPLE BLOOD; SAO2 98.9 % (95.0-100.0); THB 8.4 g/dL (11.5-17.4); pH(98.6) 7.24 (7.35-7.45)
[2018-09-12 21:57] LABS: MODALITY ROOM AIR
[2018-09-13] MEDS: D5W 1,000 ML IV SCH ×2 (01:08→08:59)
[2018-09-13 01:46] LABS: ALLEN TEST YES; BE -10.6 mmoll (-3.0-3.0); BLOOD TYPE ARTERIAL; HCO3-(ACT) 16.6 mmoll (20.0-26.0); METHB 1.5 % (0.0-1.5); O2(CT) 11.1 mL/dL (15.0-23.0); O2HB 93.7 % (95.0-99.0); PCO2(98.6) 31 mmHg (35-45); PO2(98.6) 64 mmHg (60-100); SAMPLE BLOOD; SAO2 97.2 % (95.0-100.0); THB 8.4 g/dL (11.5-17.4); pH(98.6) 7.29 (7.35-7.45)
[2018-09-13 01:47] LABS: MODALITY ROOM AIR
[2018-09-13 02:11] LABS: CALCIUM 8.7 mg/dL (8.8-10.2); CREATININE 4.1 mg/dL (0.7-1.2); MAGNESIUM 1.6 mg/dL (1.5-2.7); PHOSPHORUS 5.5 mg/dL (2.7-4.5); POTASSIUM 3.8 mmol/L (3.5-5.1)
[2018-09-13 04:44] LABS: ALLEN TEST YES; BE -11.7 mmoll (-3.0-3.0); BLOOD TYPE ARTERIAL; HCO3-(ACT) 15.7 mmoll (20.0-26.0); O2(CT) 11.8 mL/dL (15.0-23.0); O2HB 92.9 % (95.0-99.0); PCO2(98.6) 33 mmHg (35-45); PO2(98.6) 70 mmHg (60-100); SAMPLE BLOOD; SAO2 95.9 % (95.0-100.0); pH(98.6) 7.25 (7.35-7.45)
[2018-09-13 04:46] LABS: MODALITY ROOM AIR
[2018-09-13 04:49] LABS: BASO# 0.02 X1000 (0.0-0.2); BASO% 0.2 % (0.0-0.8); EOS# 0.21 X1000 (0.0-0.7); EOS% 2.3 % (0.0-10.0); HEMATOCRIT 26.5 % (42.0-52.0); LYMPH# 1.33 X1000 (1.2-3.4); LYMPH% 14.3 % (20.5-51.1); MCH 32.4 PG (27-31); MCHC 30.2 g/dL (33-37); MCV 107.3 FL (81-99); MONO% 10.8 % (1.7-9.3); MPV 9.5 FL (7.4-10.4); NEUT# 6.72 X1000 (1.4-6.5); NEUT% 72.4 % (42.2-75.2); PLT 306 X1000 (130-400); RBC 2.47 XMIL (4.7-6.1); WBC 9.28 X1000 (4.8-10.8)
[2018-09-13 04:55] LABS: CALCIUM 8.7 mg/dL (8.8-10.2); CREATININE 4.1 mg/dL (0.7-1.2); MAGNESIUM 1.6 mg/dL (1.5-2.7); PHOSPHORUS 5.2 mg/dL (2.7-4.5); POTASSIUM 3.6 mmol/L (3.5-5.1)
[2018-09-13] MEDS ORDERED: POTASSIUM CHLORIDE 20 MEQ/SWI 20 MEQ/100 ML IVPB IV ONE (05:17)
[2018-09-13] MEDS: HEPARIN SUBQ SCH ×3 (05:20→20:28)
[2018-09-13 05:41] LABS: ALB/GLOB RATIO 0.9; ALBUMIN 2.8 g/dL (3.5-5.0); ALKALINE PHOSPHATASE 349 U/L (32-122); GOT 66 U/L (10-34); GPT 45 U/L (10-44); TOTAL BILIRUBIN 0.69 mg/dL (0.20-1.00); TOTAL PROTEIN 5.8 g/dL (6.3-8.3)
[2018-09-13 06:03] LABS: ACETONE SERUM NEGATIVE (NEGATIVE)
[2018-09-13] MEDS: PROTONIX IV SCH (06:04)
[2018-09-13] MEDS: SODIUM CHLORIDE 0.9% INJ SCH (06:04)
--- NOTE | 2018-09-13 07:38 | Diag Imaging Result Doc PS360 ---
EXAM: CHEST-PORTABLE HISTORY: dyspnea TECHNIQUE: Portable chest single view COMPARISON: 09/12/2018 FINDINGS: No change in the right-sided PICC line or the nasogastric tube. Poor inspiratory effort. Heart is mildly prominent. Sternal wires and surgical clips. Right hemidiaphragm is elevated. Questionable trace right pleural fluid. The overall appearance is similar to the prior exam. IMPRESSION: Stable chest. Electronically signed by Mingo Fox 09/13/2018 7:35 AM
[2018-09-13 08:17] LABS: ALLEN TEST YES; BE -11.3 mmoll (-3.0-3.0); BLOOD TYPE ARTERIAL; HCO3-(ACT) 16.1 mmoll (20.0-26.0); METHB 1.1 % (0.0-1.5); O2(CT) 12.3 mL/dL (15.0-23.0); O2HB 93.7 % (95.0-99.0); PCO2(98.6) 33 mmHg (35-45); PO2(98.6) 73 mmHg (60-100); SAMPLE BLOOD; SAO2 96.7 % (95.0-100.0); THB 9.3 g/dL (11.5-17.4); pH(98.6) 7.26 (7.35-7.45)
[2018-09-13 08:18] LABS: MODALITY ROOM AIR
[2018-09-13 09:48] LABS: CALCIUM 8.6 mg/dL (8.8-10.2); CREATININE 4.7 mg/dL (0.7-1.2); MAGNESIUM 1.6 mg/dL (1.5-2.7); PHOSPHORUS 4.8 mg/dL (2.7-4.5); POTASSIUM 3.9 mmol/L (3.5-5.1)
[2018-09-13] MEDS ORDERED: LOPRESSOR IV PRN (10:27)
[2018-09-13] MEDS ORDERED: LABETALOL IV PRN (11:00)
--- NOTE | 2018-09-13 11:07 | PROGRESS NOTE ---
DATE: 09/13/2018 SUBJECTIVE: Mr. Boyce is propped up in bed. When I called his name a few times, he opened his eyes, but did not seem to regard me. He did not fix his gaze or follow. He has full lateral eye movement with passive head-turning. He did not follow commands or communicate otherwise. Limb tone is symmetric. IMPRESSION: Global encephalopathy, much less agitation apparent now. Features are still consistent with a withdrawal syndrome. I do not have any new suggestion today from a neurologic standpoint. Time will tell. Thanks for asking Neurology to see Mr. Boyce. cc: Yehuda Murray III, MD
[2018-09-13] MEDS: SODIUM BICARBONATE 8.4% 100 MEQ in D5W 1,000 ML IV SCH (11:23)
[2018-09-13] MEDS ORDERED: MAGNESIUM SULFATE 1 GM/D5W 1 GM/100 ML IVPB IV ONE (11:24)
[2018-09-13 13:29] LABS: CALCIUM 8.7 mg/dL (8.8-10.2); CREATININE 4.3 mg/dL (0.7-1.2); MAGNESIUM 1.7 mg/dL (1.5-2.7); PHOSPHORUS 5.1 mg/dL (2.7-4.5); POTASSIUM 3.5 mmol/L (3.5-5.1)
--- NOTE | 2018-09-13 14:21 | GASTROENTEROLOGY PROGRESS NOTE ---
DATE: 09/13/2018 SUBJECTIVE: No acute overnight events. Patient remains nonresponsive to verbal stimuli. Afebrile. OBJECTIVE: VS: T 97.9 HR 103 RR 32 BP 148/90 94 RA GEN: obtunded, non-responsive, tremor HEENT: Sclerae anicteric. Moist mucous membranes. NGT in place Neck: No JVD. No lymphadenopathy Cardiac: tachycardic, no murmurs. Lungs: CTAB, anteriorly Abdomen: soft, NT, NABS, no rebound or guarding; rectal tube with nonbloody stool Extremities: Left BKA, No clubbing, cyanosis or edema. Skin: RLE excoriation Neurologic: confused, restrained, does not follow commands; question asterixis vs clonus in RUE LABORATORY DATA Na 149 K 3.5 Cl 119 CO2 14 BUN 53 Cr 4.3 WBC 9.2 Hgb 8.0 plts 306 MCV 107 INR 1.18 albumin 2.8 Tbili 0.6 AST 66 ALT 45 ALP 349 GGT 849 ABG 7.26/33/73 ASSESSMENT AND PLAN Mr. Charly Boyce is a 58 year old man with history of IDDM2, CHF, CKD, CAD, chronic HCV, chronic anemia, and recent debridement of right hip necrotizing fasciitis who presented from rehab with AMS. He was found have severe metabolic acidosis from likely DKA, SPENSER, wound infection growing GPCs, E faecium bacteremia, and abnormal LFTs. GI consulted to evaluate for hepatic encephalopathy. Ammonia 63 on admission. Labs, imaging, and exam inconsistent with cirrhosis. Abnormal LFTs show intrahepatic cholestasis likely in the setting of infection. Abdominal US was negative for biliary pathology. #AMS: likely multifactorial; correct metabolic derangements; neurology following #Abnormal LFTs: normal synthetic function; downtrending; trending LFTs #DKA: on insulin drip; BG low 100s; defer mgmt to primary team #SPENSER on CKD: likely from DKA: on IVFs: renal following; apprec recs #Metabolic acidosis: from DKA and SPENSER; normal lactate #IDDM2: DKA; insulin drip per primary #Necrotizing fasciitis/bacteremia: on abx per primary #Chronic hepatitis C: unknown if previously treated #Anemia: no overt bleeding; trend H/H daily, transfuse prn goal hgb 7-8 Will follow with you. Please call with questions or concerns MARY
[2018-09-13] MEDS: DILAUDID IV PRN (16:15)
[2018-09-13] MEDS: HUMULIN R SUBQ SCH ×2 (16:17→20:28)
[2018-09-13] MEDS: LOPRESSOR IV PRN (18:35)
[2018-09-13] MEDS: ATIVAN IV PRN (20:28)
--- NOTE | 2018-09-13 21:07 | PROGRESS NOTE ---
DATE: 09/13/2018 SUBJECTIVE: The patient remains minimally responsive with Kussmaul breathing. The patient continues to have marginal urine output as per the nursing staff. OBJECTIVE: Vital Signs: Temperature 98.6, blood pressure 122/77, heart rate 93 , respirations 25, O2 sats 94% on room air. Urine output 100 mL. General: This is a chronically ill-appearing elderly male lying in bed in no acute distress. HEENT: Head normocephalic, atraumatic. Heart: S1, S2 normal. Tachycardic. Lungs: Equal air entry bilaterally. No wheezing. No rales. No rhonchi. Abdomen: Positive bowel sounds. Soft, nontender. Extremities: The patient has 1+ edema in the upper extremities, trace edema in the right lower extremity. The patient also has a left below the knee amputation. Neurologic: The patient is somnolent. LABS: White blood cell count 9.2, hemoglobin 8, hematocrit 26, platelets 306, 000. Sodium 149, potassium 3.5, chloride 119, CO2 14, BUN 53, creatinine 4.3, glucose 121. AST 66, ALT 45, alkaline phosphatase 349, albumin 2.8. Chest x-ray shows stable chest. Trace right pleural fluid. ASSESSMENT AND PLAN: 1. DKA. Resolved. Will discontinue the insulin drip and start the patient on subcutaneous insulin. Monitor the Accu-Cheks every 4 hours. 2. Metabolic acidosis. This has improved. We will continue on the bicarb drip. Further recommendations to follow from the naval science teacher. 3. Metabolic encephalopathy. Unchanged. This is likely secondary to the patient's renal failure and acidosis. We will continue to treat the underlying issues and monitor for improvement. Neurology is also following. 4. Right hip infection. The wound culture is growing gram-positive cocci. We will continue with antibiotic therapy as directed by Dr. Coffey. 5. Bacteremia secondary to Enterococcus faecium. Continue with antibiotic therapy. 6. Acute kidney injury. Unchanged. The patient's urine output is very poor today. Will await further recommendations from the naval science teacher. The patient remains on fluids. 7. Anemia. Will check iron studies. 8. Hepatitis C. Aware. 9. Protein calorie malnutrition. We may need to start the patient on tube feeds. Will consult with the dietitian and possibly initiate this tomorrow. 10. Peripheral arterial disease. Aware. 11. Elevated LFTs. Stable. GI is following. 12. GI prophylaxis. Continue on IV Protonix. 13. DVT prophylaxis. Continue on heparin. 14. Disposition. I updated the patient's uncle on the patient's medical condition. The patient is critically ill with a high risk of mortality. cc: Marija Gonzalez MD MTDD
--- NOTE | 2018-09-13 22:43 | NEPHROLOGY PROGRESS NOTE ---
DATE: 09/13/2018 SUBJECTIVE: He did not interact though he does open his eyes. OBJECTIVE: Vital Signs: Blood pressure 148/90, heart rate 103, respirations 32, afebrile. Generally: He is a middle-aged man, Kussmaul breathing. Skin: Warm and dry. HEENT: Conjunctivae are pink. Neck: Neck veins are not distended. Heart: Irregular and tachycardic. Lungs: Have equal breath sounds. No crackles or wheezes. Abdomen: Soft, nontender. Bowel sounds present. Extremities: 2+ edema. No clubbing or cyanosis. IMPRESSION: Acute kidney injury. Oliguric. His labs are about the same today. He remains acidotic with mixed picture of anion gap, non gap, respiratory components. He does not meet criteria for dialysis today but likely will in the next 24 to 48 hours. I have discussed the case directly with Dr. Gonzalez. We will treat with a hypotonic bicarbonate solution to address his acidosis as well as his free water deficit. cc: Dilip Carmona MD
[2018-09-14] MEDS: HUMULIN R SUBQ SCH ×6 (00:46→20:38)
--- NOTE | 2018-09-14 01:42 | INFECTIOUS DISEASE PROGRESS NO ---
DATE: 09/13/2018 PRESENT ILLNESS: Mr. Boyce is being treated for vancomycin-resistant enterococcal bacteremia, the origin of which could be his PICC line to the right upper arm, which was apparently inserted at [facility] previous to this admission. There is also a right hip infection which is now growing Gram positive cocci x2. There is a global encephalopathy, as well as an acute kidney injury. MEDICATIONS: Yesterday, he received his first dose of daptomycin. It has been increased to 600 mg IV every 48 hours starting tomorrow morning, as a renally-modified dose. PHYSICAL EXAMINATION: Vital Signs: Temperature is 97.8 degrees, pulse rate 101 , respiratory rate 40, blood pressure 169/87, O2 saturation is 94% on room air. General: This is a critically ill- appearing middle-aged gentleman. He is lying in the bed, with wrist and right ankle restraints. Moaning and nonverbal. HEENT: Atraumatic, normocephalic. Oral mucous membranes, I am unable to visualize. Conjunctivae are pale. Neck: Supple. Trachea is midline. Cardiovascular: Heart rate and rhythm are regular and tachy, sinus tach on the monitor, with occasional PACs and PVCs. Respiratory: Lung sounds are clear on the left. Mild rhonchi noted on the right. He is tachypneic. The patient is using accessory muscles to breathe. Abdomen: Soft , round, and nontender. There is an NG tube to low intermittent suction. Bowel sounds are hypoactive. Neurologic: He is obtunded, not responding verbally or following any commands. Integumentary : There is a PICC line in place to the right upper arm. The site is without edema or erythema. There is a wound VAC in place to the right hip. LABORATORY AND X-RAY: Today, his white count is 9.28, hemoglobin 8, platelet count 306,000. His urine culture showed no growth on the preliminary report. His right hip has grown 2 Gram positive cocci, which have yet to be isolated. His blood has shown a vancomycin- resistant Enterococcus in 1 out of 2 cultures. Chest x-ray today is stable, with a questionable trace right pleural fluid. ASSESSMENT AND PLAN: Mr. Boyce is being treated for vancomycin-resistant enterococcus using daptomycin every 48 hours, as a renally-modified dose. He has sustained an acute kidney injury. He is also growing 2 separate Gram positive cocci organisms, which have yet to be identified, to his right hip. Because it is late this evening, we have gone ahead and put in orders to remove the PICC in the morning, and get a peripheral IV on the patient. These plans have been discussed with and recommended by Dr. Coffey. COMORBIDITIES: Recent necrotizing fasciitis, coronary artery disease, diabetes mellitus, hepatitis C, alcohol abuse, acute kidney injury on chronic kidney disease, anemia of chronic disease, congestive heart failure and global encephalopathy. Dictated by ANGEL Bansal for Segun Coffey MD This chart was documented by, ANGEL Bansal and accurately reflects the services performed, treatment plan and medical decisions as attested by the providers signature Segun Coffey MD. cc: Segun Coffey MD MTDD
[2018-09-14] MEDS: SODIUM BICARBONATE 8.4% 100 MEQ in D5W 1,000 ML IV SCH ×2 (01:47→11:33)
[2018-09-14 04:57] LABS: ALLEN TEST YES; BE -12.6 mmoll (-3.0-3.0); BLOOD TYPE ARTERIAL; HCO3-(ACT) 14.9 mmoll (20.0-26.0); METHB 1.6 % (0.0-1.5); O2(CT) 14.5 mL/dL (15.0-23.0); PCO2(98.6) 39 mmHg (35-45); PO2(98.6) 66 mmHg (60-100); SAMPLE BLOOD; THB 11.5 g/dL (11.5-17.4)
[2018-09-14 04:59] LABS: pH(98.6) 7.19 (7.35-7.45)
[2018-09-14 05:00] LABS: MODALITY ROOM AIR; O2HB 89.6 % (95.0-99.0)
[2018-09-14] MEDS: ATIVAN IV PRN (05:15)
[2018-09-14] MEDS: HEPARIN SUBQ SCH ×3 (05:15→20:38)
[2018-09-14 05:45] LABS: BASO# 0.04 X1000 (0.0-0.2); BASO% 0.4 % (0.0-0.8); EOS# 0.18 X1000 (0.0-0.7); EOS% 1.9 % (0.0-10.0); HEMATOCRIT 28.9 % (42.0-52.0); HEMOGLOBIN 8.8 g/dL (14.0-18.0); IMM GRAN# 0.02 X1000 (0.0-0.04); IMM GRAN% 0.2 % (0.0-0.5); LYMPH# 1.85 X1000 (1.2-3.4); LYMPH% 19.5 % (20.5-51.1); MCH 32.5 PG (27-31); MCHC 30.4 g/dL (33-37); MCV 106.6 FL (81-99); MONO# 1.05 X1000 (0.11-0.59); MONO% 11.1 % (1.7-9.3); MPV 10.1 FL (7.4-10.4); NEUT# 6.34 X1000 (1.4-6.5); NEUT% 66.9 % (42.2-75.2); PLT 303 X1000 (130-400); RBC 2.71 XMIL (4.7-6.1); RDW 14.8 % (11.5-14.5); RETIC% 2.37 % (0.8-2.1); RETIC-HE 28.1 PG (28.2-36.6); WBC 9.48 X1000 (4.8-10.8)
[2018-09-14] MEDS: PROTONIX IV SCH ×3 (06:02→20:37)
[2018-09-14 06:09] LABS: ALB/GLOB RATIO 0.7; ALBUMIN 2.7 g/dL (3.5-5.0); CALCIUM 8.6 mg/dL (8.8-10.2); CREATININE 4.7 mg/dL (0.7-1.2); DIRECT BILIRUBIN 0.3 mg/dL (0.00-0.20); PHOSPHORUS 5.9 mg/dL (2.7-4.5); POTASSIUM 3.9 mmol/L (3.5-5.1); TOTAL BILIRUBIN 0.67 mg/dL (0.20-1.00); TOTAL PROTEIN 6.6 g/dL (6.3-8.3)
[2018-09-14 06:37] LABS: BANDS 2 % (0-1); EOS 2 % (1-10); LYMPHS 18 % (21-51); SEGS 78 % (42-75)
[2018-09-14 07:54] LABS: ALLEN TEST YES; BE -10.7 mmoll (-3.0-3.0); BLOOD TYPE ARTERIAL; HCO3-(ACT) 16.6 mmoll (20.0-26.0); METHB 1.3 % (0.0-1.5); O2HB 96.4 % (95.0-99.0); PCO2(98.6) 32 mmHg (35-45); PO2(98.6) 119 mmHg (60-100); SAMPLE BLOOD; SAO2 99.6 % (95.0-100.0); THB 10.2 g/dL (11.5-17.4); pH(98.6) 7.28 (7.35-7.45)
[2018-09-14 07:55] LABS: MODALITY BI PAP
[2018-09-14] MEDS: CUBICIN 600 MG in NS 100 ML IV SCH (09:18)
[2018-09-14] MEDS: SODIUM CHLORIDE 0.9% INJ SCH (09:18)
--- NOTE | 2018-09-14 10:49 | Diag Imaging Result Doc PS360 ---
EXAM: CHEST-PORTABLE - 09/14/2018 HISTORY: dyspnea TECHNIQUE: Portable chest COMPARISON: 09/09/2018 FINDINGS: Heart size appears mildly enlarged and stable. There is stable elevation of the right hemidiaphragm. There is mild prominence of central vascular markings similar to prior. There is no dense consolidation, substantial pleural effusion, or pneumothorax identified. PICC remains in place. There is a nasogastric tube is tip at the expected location of the proximal to mid stomach. IMPRESSION: Mild cardiomegaly and mild prominence of central vascular markings similar to prior. Electronically signed by Zoran Jane 09/14/2018 10:47 AM
--- NOTE | 2018-09-14 11:04 | INFECTIOUS DISEASE PROGRESS NO ---
DATE: 09/14/2018 The patient's right hip in addition to Enterococcus, also grew out Eugenia parapsilosis. I have started IV fluconazole to cover the Eugenia isolate. cc: Segun Coffey MD
[2018-09-14] MEDS: FOLIC ACID 1 MG in NS 50 ML IV SCH (11:33)
--- NOTE | 2018-09-14 11:37 | INFECTIOUS DISEASE PROGRESS NO ---
DATE: 09/14/2018 PRESENT ILLNESS: The patient has a vancomycin-resistant enterococcal bacteremia. It appears to have arisen from his right hip infection because the same organism was isolated from the right hip wound. MEDICATIONS: The patient started daptomycin yesterday. PHYSICAL EXAMINATION: Vital Signs: Temperature is 98.2 degrees, pulse 102, respirations 31, blood pressure 115/69. General: This is an ill-appearing middle-aged male. He is lying in bed and somewhat tremulous. Head/eyes/ears/nose/throat: No drainage noted from the nose or ears. Neck: No meningismus. Lungs: Clear to auscultation. Cardiovascular: Heart rate is regular. Abdomen: Soft and not tender. Neurologic: The patient is tremulous at times. He does not respond to verbal stimuli. Extremities: There is a PICC in the patient's right arm.. The patient has a VAC placed on the right hip wound. LAB AND X-RAY: CBC today shows a white count of 9480, hemoglobin 8.8, and platelet count 303,000. The patient's blood gases show a pH of 7.28, a PO2 of 119, and a pCO2 of 32. Creatinine is 4.7. GFR is 16. Alkaline phosphatase is 373. The hip grew enterococcus and silas. ASSESSMENT AND PLAN: The patient has a vancomycin-resistant enterococcal bacteremia, which appears to have arisen from the patient's right hip infection with the same organism. Plan to continue with daptomycin. The patient's PICC in his right arm has been present for quite awhile. It was put in at another hospital, and I think it would be best to take it out. The patient is going to have a dialysis catheter placed today and in particular, it is going to be the Trialysis catheter that is going to be put in. Therefore, there is an extra port on that catheter to be used as a regular IV. Also will start fluconazole to cover silas recovered from hip. COMORBIDITIES: The patient's comorbidities include necrotizing fasciitis, diabetes mellitus, alcohol abuse, acute kidney injury, congestive heart failure, coronary artery disease and global encephalopathy. cc: Segun Coffey MD MTDD
--- NOTE | 2018-09-14 11:50 | OPERATIVE NOTE ---
PROCEDURE DATE: 09/14/2018 PREOPERATIVE DIAGNOSES: 1. Acute kidney injury. 2. Metabolic encephalopathy. 3. Hip infection. 4. Hepatitis C. POSTOPERATIVE DIAGNOSES: 1. Acute kidney injury. 2. Metabolic encephalopathy. 3. Hip infection. 4. Hepatitis C. PROCEDURE: Insertion of dialysis catheter. SURGEON: Elliott Mitchell MD ESTIMATED BLOOD LOSS: Scant. COMPLICATIONS: None apparent. TECHNIQUE: He was kept supine on his hospital bed. He was in restraints. His right groin was prepped and draped in the usual sterile fashion. Lidocaine 1% was used to anesthetize the skin. The right femoral vein was then accessed with 1 attempt, drawing back dark, nonpulsatile blood. A wire was passed through the needle first and then the track was dilated. Then, the Trialysis catheter was passed over the wire into the vein via the Seldinger technique. The wire was removed. All ports be back blood and were flushed with saline easily. It was anchored to the skin with nylon suture. A sterile dressing was applied. The caps were applied. There were no apparent complications. cc: Elliott Mitchell MD
--- NOTE | 2018-09-14 12:44 | PROGRESS NOTE ---
DATE: 09/14/2018 Mr. Boyce continues restrained and sedated. When I called his name, he partially opened his eyes but did not speak or communicate. He did not follow commands. There was minimal withdrawal with noxious stimulation over the limbs. Limb tone seems symmetric. There is no meningismus. He has bacteremia and renal failure with BUN in the 50s over the last few days. Creatinine has climbed. IMPRESSION: Global encephalopathy, initially suspected withdrawal syndrome, now likely superimposed uremic encephalopathy and continued medication effect with sedatives. I do not have any new suggestion from neurologic standpoint today. cc: Yehuda Murray III, MD MTDD
--- NOTE | 2018-09-14 13:52 | GASTROENTEROLOGY PROGRESS NOTE ---
DATE: 02/11/2019 SUBJECTIVE: He is resting in bed. He is in restraints. He did not answer any of my questions. He is on a face mask. OBJECTIVE: Vital Signs: Temperature 98.2, pulse 102, respiratory 31, blood pressure, saturating 100% on BiPAP. Body weight of 215 pounds 5 ounces. General Appearance: Moderately built, lying in bed, in no acute distress. He is nonverbal. HEENT: Positive pallor. No icterus. BiPap face mask in place. Neck is supple. Abdomen is soft, nondistended. No guarding. Extremities: He is in restraints. Neuro-dueñas, he was nonverbal. He was able to open up his eyes to commands. LABORATORY DATA: Hemoglobin and hematocrit is 8.8 and 28.9, white count of 9.4 , platelet count of 303,000. ABG showing pH of 7.28, pCO2 of 32, PO2 of 119; this is on BiPAP at 30 % FiO2. Sodium 149, potassium 3.9, chloride 116, bicarb of 13 and anion gap of 20. BUN of 52, creatinine 4.7, glucose of 161. Calcium is 8.6, phosphorus 5.9, total bilirubin is 0.67. AST 54, ALT 42, alkaline phosphatase 372. Total protein 6.6, albumin of 2.7. ProBNP is more than 35,000. Folate of 4.1. UA is positive for white cells. Blood culture showing Enterococcus species in group D and right hip culture showing Enterococcus species in group D and Eugenia parapsilosis. Urine culture showing no growth. Abdominal x-ray on 09/12/2018 showed osteosclerosis may be the result of secondary hyperparathyroidism. The possibility of osseous metastatic disease cannot be excluded. No signs of bowel obstruction. Abdominal ultrasound done on 09/10/2018 showed hepatic steatosis. No evidence of acute disease. IMPRESSION AND PLAN: 1. Diabetic ketoacidosis. This is being treated by the primary care team. 2. Right hip infection and sepsis. He is on broad-spectrum antibiotics. 3. Acute kidney injury. He has been following Nephrology. 4. Hepatitis C, aware. We will follow up the hepatitis C PCR. 5. Hepatic steatosis on ultrasound. It could be due to hepatitis C or possible alcoholism. Patient has h/o alcoholism. 6. Protein calorie malnutrition. He is on NG tube feeding. 7. Anemia. Continue to watch and transfuse as needed. 8. Electrolyte imbalance. This is again addressed by the primary care team. 9. Gastrointestinal prophylaxis with Protonix b.i.d. 10. He is having liquid green bowel movements. I will start him on Culturelle per the NG tube b.i.d. 11. Above plan discussed with the patient's nurse and all questions answered. Please call us with any further questions. cc: MD Marija Knight MD MTDD
[2018-09-14 14:49] LABS: ALBUMIN 2.4 g/dL (3.5-5.0); CALCIUM 8.6 mg/dL (8.8-10.2); CREATININE 4.8 mg/dL (0.7-1.2); PHOSPHORUS 5.2 mg/dL (2.7-4.5); POTASSIUM 3.7 mmol/L (3.5-5.1)
--- NOTE | 2018-09-14 15:46 | PROGRESS NOTE ---
DATE: 09/14/2018 SUBJECTIVE: The patient is currently on BiPAP. He appears to have pursed lip breathing; however, his oxygen saturation is 100%. OBJECTIVE: Vital Signs: Temperature 97.6 degrees, blood pressure 121/61, heart rate 77, respirations 20, O2 saturation 100% on BiPAP. Output: Urine output 200 mL. General: This is a chronically ill-appearing elderly male, lying in bed in no acute distress. Head: Normocephalic, atraumatic. Heart: S1, S2 normal. Regular rate and rhythm. Lungs: Diminished breath sounds bilaterally. No crackles. No rales. Abdomen: Distended. Positive bowel sounds. Extremities: 2+ edema in the upper extremities, 1+ in the lower extremities. Neurological: The patient is lethargic and confused. He does not follow commands. DIAGNOSTIC STUDIES: White blood cell count 9.4, hemoglobin 8.8, hematocrit 28, platelets 303,000. Sodium 147, potassium 3.7, chloride 115, CO2 of 16, BUN 53, creatinine 4.8, glucose 91. Phosphorus 5.2. AST 54, ALT 42, alkaline phosphatase 373. Folate 4.1. Albumin 2.4. Acetone negative. Chest x-ray shows home prominent central vascular markings. ASSESSMENT AND PLAN: 1. Metabolic acidosis. Slowly improving. The patient is currently on a bicarbonate drip. Further management as per the airplane pilot helper. 2. Bacteremia secondary to Enterococcus faecium. Continue with antibiotic therapy as directed by Dr. Coffey. 3. Right hip infection secondary to Enterococcus faecium. Continue with IV antibiotics and wound care. 4. Acute kidney injury. Unchanged. The patient's urine output remains marginal and he is starting to retain fluid. Will decrease the IV fluid rate. Further recommendations to follow from the airplane pilot helper. The SPEP was reviewed and the immunoelectrophoresis assay is pending. 5. Hypernatremia. Slowly improving. Continue with free water flushes via the NGT. 6. Metabolic encephalopathy. Unchanged. 7. Diabetic ketoacidosis (DKA). Resolved. Continue with sliding scale insulin. 8. Hepatitis C. Aware. 9. Folate deficiency. We will start the patient on folic acid replacement. 10. Anemia. Continue to monitor closely. 11. Protein calorie malnutrition. The patient remains n.p.o. due to his altered mental status. If the patient's respiratory status remains stable, we will likely initiate tube feeds tomorrow. 12. Peripheral arterial disease. Aware. 13. Gastrointestinal (GI) prophylaxis. Continue on Protonix. 14. Deep vein thrombosis (DVT) prophylaxis. Continue on heparin. DISPOSITION: The patient is critically ill with a high risk of mortality. cc: Marija Gonzalez MD MTDD
[2018-09-14 17:02] LABS: ALLEN TEST YES; BE -8.6 mmoll (-3.0-3.0); BLOOD TYPE ARTERIAL; HCO3-(ACT) 18.2 mmoll (20.0-26.0); METHB 1.5 % (0.0-1.5); O2HB 96.8 % (95.0-99.0); PCO2(98.6) 30 mmHg (35-45); PO2(98.6) 129 mmHg (60-100); SAMPLE BLOOD; SAO2 99.8 % (95.0-100.0); THB 8.6 g/dL (11.5-17.4); pH(98.6) 7.34 (7.35-7.45)
[2018-09-14 17:03] LABS: MODALITY BI PAP
--- NOTE | 2018-09-14 18:43 | NEPHROLOGY PROGRESS NOTE ---
DATE: 09/14/2018 SUBJECTIVE: He is not really responsive today. OBJECTIVE: At the time of my exam at 0600, Vital Signs: Blood pressure 140/81, heart rate 97, respirations 30, afebrile. Intake 3.5 L, output 300 mL. PHYSICAL EXAM: Minimally response. Increased work of breathing. Skin is warm and dry. Conjunctivae are pale. Pupils are equal. Oropharynx is dry. Neck veins are not appreciated. Heart is regular and mildly tachycardic. Lungs have equal breath sounds. Prolonged expiratory phase. Abdomen is soft, decreased bowel sounds. Extremities have 1+ edema. No clubbing or cyanosis. IMPRESSION: Acute kidney injury. His labs are about the same today but urine output is low. His respiratory status is compromised and he had significant acidosis today with pH of 7.19. He has metabolic acidosis with both anion gap and non gap components and overlying respiratory failure. After BiPAP, his pCO2 was 32 and pH is 7.28. I administered intravenous bicarbonate as well. He likely will require dialysis over the next 24 to 48 hours. I have discussed the case directly with Dr. Gonzalez. cc: Dilip Carmona MD
[2018-09-14] MEDS: CULTURELLE NG SCH (20:37)
[2018-09-14] MEDS: DIFLUCAN 200 MG/NS 200 MG/100 ML IVPB IV SCH (20:38)
[2018-09-15] MEDS: SODIUM BICARBONATE 8.4% 100 MEQ in D5W 1,000 ML IV SCH ×2 (01:03→16:03)
[2018-09-15] MEDS: HUMULIN R SUBQ SCH ×6 (01:03→20:57)
--- NOTE | 2018-09-15 01:13 | CONSULTATION ---
DATE OF CONSULTATION: 09/14/2018 REQUESTING PROVIDER: Dr. Marija Gonzalez. REASON FOR CONSULTATION: Respiratory distress. HISTORY OF PRESENT ILLNESS: This is a 58-year-old male, with a medical history of necrotizing fasciitis, right hip ulcer, coronary artery disease, hypertension , diabetes mellitus type 2, hepatitis C, congestive heart failure, diastolic dysfunction, chronic kidney disease, anemia, and alcohol abuse. He presented to the ER from [facility] on September 09, 2018, with altered mental status. He has been admitted to the ICU with global encephalopathy, right hip ulcer, abnormal liver function tests, and [id number] kidney disease. During his hospitalization, he was found to have a severe right hip infection, with Gram positive cocci and vancomycin resistant Enterococcal bacteremia. He developed diabetic ketoacidosis, which is resolved now; metabolic acidosis, which is improving; and acute kidney injury, which is stable. Chest x-ray on 09/13/2018 revealed new questionable chest right pleural fluid, with stable right hemidiaphragm elevation. Early this morning, the patient also developed respiratory distress, and has been placed on BiPAP since then. At the time of my examination, the patient is lethargic and confused. He does not follow commands. All of the information is obtained from the chart. PAST MEDICAL HISTORY: 1. Necrotizing fasciitis, ongoing, followed by the wound clinic. 2. Right hip ulcer, ongoing. 3. Coronary artery disease. 4. Hypertension. 5. Diabetes mellitus type 2, insulin-dependent. 6. Hepatitis C. 7. Congestive heart failure. 8. Diastolic dysfunction. 9. Chronic kidney disease. 10. Anemia unspecified. 11. Alcohol abuse. PAST SURGICAL HISTORY: Excisional debridement, right hip, stent placement in both superficial femoral arterials, and left [id number] amputation. Otherwise, unclear. SOCIAL HISTORY: The patient is a resident at [facility], and he has a history of alcohol abuse, and likely benzodiazepine, plus or minus opioid abuse. FAMILY HISTORY: Unknown. ALLERGIES: No known drug allergies. REVIEW OF SYSTEMS: Unable to be obtained. PHYSICAL EXAMINATION: Vital Signs: Temperature 98.2 degrees, blood pressure 115/69, pulse 102, respiratory rate 31, oxygen saturation 100% on BiPAP 12/5, with FiO2 30%. General: Resting quietly in bed, with bilateral upper restraints. No acute respiratory distress noted. HEENT: Atraumatic. Trachea midline. NG tube in place. Respiratory: Chest expansion equal bilaterally. Rapid and shallow breathing. Diminished breathing sounds on the right side. Of chest. Otherwise, clear to auscultation. Cardiovascular: Regular rate and rhythm, without murmur noted. Gastrointestinal: Bowel sounds present in all 4 quadrants. Soft and nondistended. Extremities: PICC line in right upper extremity. Pitting edema 1+ in right lower extremity. Pitting edema 2+ in bilateral upper extremities. [id number] amputation in the left lower extremity. Neurologic: Lethargic and confused. He partially opened his eyes upon verbal stimuli, but he does not answer questions or follow commands. IMAGING DATA: Chest x-ray revealed mild cardiomegaly, stable right hemidiaphragm elevation. Stable mild prominence of central vascular markings. LAB DATA: White blood cells 9.48, hemoglobin 8.8, hematocrit 28.9, platelets 303,000. Sodium 149, potassium 3.9, chloride 116, carbon dioxide 13, BUN 52, creatinine 4.7, glucose 154. ProBNP over 45,000. ABG: pH 7.28, pCO2 of 32, PO2 119, HCO3 16.6, base excess -10.7, and oxyhemoglobin 96.4. ASSESSMENT: This is a 58-year-old male with a medical history of necrotizing fasciitis, right hip ulcer, coronary artery disease, hypertension, diabetes mellitus type 2, hepatitis C, congestive heart failure, diastolic dysfunction, chronic kidney disease, anemia, and alcohol abuse. He has been admitted with global encephalopathy, right hip ulcer , abnormal liver function tests, and isomr-ik-klurhsq kidney disease. During his hospitalization , he was found to have a severe right hip infection with Gram positive cocci and vancomycin resistant enterococcal bacteremia. He also developed diabetes ketoacidosis, metabolic acidosis, acute kidney injury, and respiratory distress. 1. Bacteremia, with vancomycin resistant Enterococcus faecium. 2. Respiratory distress. 3. Acute kidney injury on chronic kidney disease. 4. Right hip ulcer, with severe infection with Enterococcus faecium and Eugenia parapsilosis. 5. Global encephalopathy. PLAN: 1. Continue supplemental oxygen and BiPAP as needed. The patient is currently tolerating BiPAP well. We will follow with ABG and chest x-ray. 2. Continue current broad-spectrum antibiotics. 3. Consider bronchodilators if needed. 4. Dr. Groves, Dr. Murray, Dr. Coffey, Dr. Hedrick, and Dr. Carmona are on board. 5. Continued GI and DVT prophylaxis. Thank you for the courtesy of this consult. Dictated by ANGEL Cordon for Glenda Campo MD cc: ANGEL Cordon MD [facility]
[2018-09-15 04:43] LABS: ALLEN TEST YES; BE -8.1 mmoll (-3.0-3.0); BLOOD TYPE ARTERIAL; HCO3-(ACT) 18.5 mmoll (20.0-26.0); METHB 0.9 % (0.0-1.5); O2(CT) 10.5 mL/dL (15.0-23.0); O2HB 90.3 % (95.0-99.0); PCO2(98.6) 30 mmHg (35-45); PO2(98.6) 58 mmHg (60-100); SAMPLE BLOOD; SAO2 92.9 % (95.0-100.0); THB 8.2 g/dL (11.5-17.4); pH(98.6) 7.35 (7.35-7.45)
[2018-09-15 04:48] LABS: MODALITY BI PAP
[2018-09-15] MEDS: HEPARIN SUBQ SCH ×3 (05:10→20:34)
[2018-09-15 06:15] LABS: BASO# 0.03 X1000 (0.0-0.2); BASO% 0.4 % (0.0-0.8); EOS# 0.24 X1000 (0.0-0.7); EOS% 3.1 % (0.0-10.0); HEMATOCRIT 27.1 % (42.0-52.0); HEMOGLOBIN 8.1 g/dL (14.0-18.0); IMM GRAN# 0.02 X1000 (0.0-0.04); IMM GRAN% 0.3 % (0.0-0.5); LYMPH# 1.49 X1000 (1.2-3.4); LYMPH% 19.6 % (20.5-51.1); MCH 33.1 PG (27-31); MCHC 29.9 g/dL (33-37); MCV 110.6 FL (81-99); MONO# 0.85 X1000 (0.11-0.59); MONO% 11.2 % (1.7-9.3); MPV 10.3 FL (7.4-10.4); NEUT# 4.99 X1000 (1.4-6.5); NEUT% 65.4 % (42.2-75.2); PLT 227 X1000 (130-400); RBC 2.45 XMIL (4.7-6.1); RDW 14.9 % (11.5-14.5); WBC 7.62 X1000 (4.8-10.8)
[2018-09-15 06:31] LABS: ALB/GLOB RATIO 0.8; ALBUMIN 2.5 g/dL (3.5-5.0); CALCIUM 8.2 mg/dL (8.8-10.2); CREATININE 5.6 mg/dL (0.7-1.2); DIRECT BILIRUBIN 0.4 mg/dL (0.00-0.20); PHOSPHORUS 4.5 mg/dL (2.7-4.5); POTASSIUM 3.4 mmol/L (3.5-5.1); TOTAL BILIRUBIN 0.77 mg/dL (0.20-1.00); TOTAL PROTEIN 5.8 g/dL (6.3-8.3)
[2018-09-15] MEDS: LOPRESSOR IV PRN (07:55)
[2018-09-15] MEDS: PROTONIX IV SCH ×2 (08:04→20:34)
[2018-09-15] MEDS: CULTURELLE NG SCH ×2 (08:04→20:34)
[2018-09-15] MEDS ORDERED: NS 2,000 ML MISC PRN (08:46)
[2018-09-15] MEDS ORDERED: HEPARIN IV PRN (08:46)
[2018-09-15] MEDS ORDERED: TIGHT: 0.2 ML/HR FOR DIALYSIS MISC PRN (08:46)
[2018-09-15] MEDS: ATIVAN IV PRN ×2 (09:38→16:44)
[2018-09-15] MEDS: FOLIC ACID 1 MG in NS 50 ML IV SCH (10:11)
--- NOTE | 2018-09-15 12:11 | PROGRESS NOTE ---
DATE: 09/15/2018 SUBJECTIVE: Mr. Boyce is supine, wrists restrained, breathing spontaneously. He opened his eyes more consistently today than yesterday. He moved both arms spontaneously. He attempted to use his right arm purposefully. With noxious stimulation, he grumbled but did not say a word that I could understand. He did not communicate with me. He did not follow commands. IMPRESSION: Patient continues with multifactorial encephalopathy. Medical problems are being addressed. I do not have any new suggestion today from the neurologic standpoint. Thanks for asking me to see Mr. Boyce. cc: MD MARY Yuen III
--- NOTE | 2018-09-15 12:21 | GASTROENTEROLOGY PROGRESS NOTE ---
DATE: 09/15/2018 SUBJECTIVE: No acute overnight events. Patient is on BiPAP OBJECTIVE: VS: T 99.2 HR 112 RR 26 BP 149/99 100% on BiPAP GEN: more awake, tracking with eyes; does not respond to vebal commands HEENT: Sclerae anicteric. Moist mucous membranes. NGT in place Neck: No JVD. No lymphadenopathy Cardiac: tachycardic, no murmurs. Lungs: CTAB, anteriorly Abdomen: soft, NT, NABS, no rebound or guarding; rectal tube with nonbloody stool; rectal tube Extremities: Left BKA, No clubbing, cyanosis or edema. Skin: RLE excoriation Neurologic: confused, restrained, does not follow commands LABORATORY DATA Na 145 K 3.4 CO2 14 BUN 50 Cr 5.6 glucose 132 WBC 7.6 Hgb 8.1 plts 227K Alb 2.5 AST 45 ALT 36 ALP 351 CDiff negative ASSESSMENT AND PLAN Mr. Charly Boyce is a 58 year old man with history of IDDM2, CHF, CKD, CAD, chronic HCV, chronic anemia, and recent debridement of right hip necrotizing fasciitis who presented from rehab with AMS. He was found have severe metabolic acidosis from likely DKA, SPENSER, wound infection growing GPCs, E faecium bacteremia, and abnormal LFTs. GI consulted to evaluate for hepatic encephalopathy. Ammonia 63 on admission. Labs, imaging, and exam inconsistent with cirrhosis. Abnormal LFTs show intrahepatic cholestasis likely in the setting of infection. Abdominal US was negative for biliary pathology. #AMS: likely multifactorial; correct metabolic derangements; neurology following #Abnormal LFTs: normal synthetic function; downtrending; trending LFTs #DKA: on insulin; BG low 100s; defer mgmt to primary team #SPENSER on CKD: likely from DKA: on IVFs: renal following; apprec recs #Metabolic acidosis: from DKA and SPENSER; normal lactate #IDDM2: improved DKA; insulin drip per primary #Necrotizing fasciitis/bacteremia: on abx per primary #Chronic hepatitis C: unknown if previously treated #Anemia: no overt bleeding; trend H/H daily, transfuse prn goal hgb 7-8 Will follow with you. Please call with questions or concerns [facility]
--- NOTE | 2018-09-15 15:50 | PROGRESS NOTE ---
DATE: 09/15/2018 SUBJECTIVE: The patient remains lethargic on BiPAP. No acute events noted overnight. OBJECTIVE: Vital signs: Temperature 98.2 degrees, blood pressure 124/70, heart rate 102, respirations 36, O2 saturation 100% on BiPAP. Urine output is 630. General: This is a chronically ill-appearing elderly male on BiPAP. Heart: S1, S2 normal. Tachycardic. Lungs: Equal air entry bilaterally. No wheezing. No rales. Abdomen: Positive bowel sounds. Soft, nontender, nondistended. Extremities: The patient has 2+ edema in the upper extremities, 1+ edema in the right lower extremity. The patient also has a left BKA. Neurological: The patient is lethargic and confused. He does not follow commands. LABORATORY DATA: White blood cell count 7.6, hemoglobin 8.1, hematocrit 27, platelets 227,000. Sodium 145, potassium 3.4, chloride 111, CO2 14, BUN 50, creatinine 5.6, glucose 132, calcium 8.2, AST 45, ALT 36, alkaline phosphatase 351, albumin 2.5. ASSESSMENT AND PLAN: 1. Bacteremia secondary to VRE. Continue with antibiotic therapy as directed by Dr. Coffey. 2. Right hip infection secondary to vancomycin-resistant enterococcus. Continue with wound care and antibiotic therapy. 3. Acute kidney injury. The patient will be dialyzed today. Further management as per the rn chronic. 4. Metabolic acidosis. Management as per the rn chronic. 5. Metabolic encephalopathy. Unchanged. Will continue to monitor for improvement. 6. Diabetic ketoacidosis. Resolved. 7. Diabetes mellitus type 2. Continue with sliding scale insulin. 8. Hepatitis C. Aware. 9. Anemia. Will continue to monitor this closely. 10. Peripheral arterial disease. Aware. 11. Coronary artery disease status post coronary artery bypass graft. Aware. 12. Severe protein calorie malnutrition. The patient may benefit from intradialytic parenteral nutrition during dialysis. 13. Gastrointestinal prophylaxis. Continue on Protonix. 14. Deep vein thrombosis prophylaxis. Continue on heparin. cc: Marija Gonzalez MD MTDD
[2018-09-15] MEDS: DIFLUCAN 200 MG/NS 200 MG/100 ML IVPB IV SCH (20:33)
--- NOTE | 2018-09-15 21:44 | PULMONOLOGY PROGRESS NOTE ---
DATE: 09/15/2018 SUBJECTIVE: The patient is disoriented. He is growling. He is currently in restraints. He is on BiPAP ventilation. OBJECTIVE: Respiratory rate 34, minute ventilation 17 on BiPAP, oxygen saturation 96%, has been afebrile. HEENT: Pupils are equal and reactive. Oropharynx evaluation is limited with BiPAP in place. Neck: Is supple . Chest: Reveals diminished breath sounds right base. Cardiac: S1- S2. Abdomen: Is mildly distended. Extremities: Reveal prior treatment for necrotizing fasciitis with chronic vascular appearance skin on the right lower extremity. LABORATORIES: Chest x-ray yesterday reveals chronic elevation of the right hemidiaphragm. Arterial blood gas reveals a pH 7.35, pCO2 30, pCO2 of 58 with a normal lactate. Chemistry sodium 145, potassium 3.4, chloride 111, bicarbonate 14, anion gap 20, BUN 50, creatinine 5.6, glucose 144. White blood count 7.62, hemoglobin 8.1, platelet count 327,000. IMPRESSION: 58-year-old with chronic paralysis of the right hemidiaphragm with ventilatory limitation, respiratory acidosis, hyperchloremic metabolic acidosis, increased anion gap metabolic acidosis, delirium, hepatitis C with Enterococcus faecium wound culture from the right hip and positive blood culture. His delirium is complicating his treatment course. RECOMMENDATIONS: 1. Increase BiPAP inspiratory pressure to help with ventilatory insufficiency associated with chronic diaphragmatic paralysis. 2. Continue sodium bicarbonate drip. 3. Agree with plans for hemodialysis and attempt to decrease anion gap acidosis. 4. Prognosis is guarded. TIME SPENT IN CRITICAL CARE: 30+ minutes. cc: Mynor Cabezas MD
--- NOTE | 2018-09-16 01:20 | INFECTIOUS DISEASE PROGRESS NO ---
DATE: 09/15/2018 PRESENT ILLNESS: The patient has a vancomycin-resistant enterococcal bacteremia and infection from his right hip. Also, a Eugenia parapsilosis was isolated from the patient's right hip. MEDICATION: The patient is on daptomycin and fluconazole. This is day 1 for both medications. PHYSICAL EXAMINATION: Vital Signs: Temperature is 98 degrees, pulse 105, respirations 24, blood pressure 154/85. General: This is an ill and delirious middle-aged male. Head, Eyes, Ears, Nose, and Throat: No drainage noted from the nose or ears. Neck: No stiffness. Lungs: Clear to auscultation. Cardiovascular: Regular heart rate. Abdomen: Soft and nontender. Neurologic: The patient screams out in the room. He seems to be delirious. Extremities: The patient has a left [id number] amputation. The incision is healed. The patient has a right groin Trialysis catheter. The PICC the patient had in his arm has been removed. Bones, Joints, Muscles: The patient's right hip wound has beefy red tissue when I saw it yesterday. He has the VAC on it now. LAB AND X-RAY: There is no new radiographic study for today. The laboratory tests show a CBC with a white count of 7620, hemoglobin 8.1, and platelet count 227,000. Blood gases show a pH of 7.35, a PO2 of 58, and a pCO2 of 30. Creatinine is 5.6. The GFR is 13. The alkaline phosphatase is 351. ASSESSMENT AND PLAN: The patient has enterococcal bacteremia and an infection of the patient's right hip, along with Eugenia parapsilosis. I plan to continue daptomycin and fluconazole. This is day 1 of treatment with both of those agents. COMORBIDITIES: History of necrotizing fasciitis, diabetes mellitus, alcohol abuse, acute kidney injury, congestive heart failure, coronary artery disease, and global encephalopathy. cc: Segun Coffey MD
--- NOTE | 2018-09-16 01:59 | NEPHROLOGY PROGRESS NOTE ---
DATE: 09/15/2018 SUBJECTIVE: The patient is sitting up in bed. He is awake, but he does not really respond. OBJECTIVE: Vital Signs: At the time of exam at 0915: Temperature 99.2 degrees, pulse 112, respiratory rate 23, blood pressure 149/99, intake 2.1 L. Output 1.1 L, and 825 of this was urine output. General: This is a middle-aged gentleman sitting up in bed. He does not appear in acute distress. HEENT: Normocephalic, atraumatic. His oral mucosa is dry. Neck: Supple. No JVD. Cardiovascular: Regular rate and rhythm. Occasionally tachycardic. Pulmonary: No increased work of breathing. Abdomen: Soft, with positive bowel sounds. : Not inspected. He has a Vas- Cath to the right groin. His upper extremities are restrained. Lower extremities with no edema. Integumentary: Skin is warm and dry. LAB DATA: WBC of 7.6, hemoglobin 8.1, sodium 145, potassium 3.1, CO2 14, creatinine 5.6. ASSESSMENT AND PLAN: 1. Acute kidney injury with inadequate urine output and worsening renal function. He had a dialysis catheter placed yesterday. We will plan to dialyze him on a 2K bath/2 L fluid removal, with a slow flow of 250 to 350. 2. Global encephalopathy, suspected withdrawal symptoms. Hopefully, dialysis will assist with improvement. 3. Necrotizing fasciitis to the right hip, followed by Infectious Disease. Dictated by ANGEL Benitez for Dilip Carmona MD cc: Dilip Carmona MD
[2018-09-16] MEDS: HUMULIN R SUBQ SCH ×6 (03:05→20:06)
[2018-09-16] MEDS: ATIVAN IV PRN (05:01)
[2018-09-16] MEDS: HEPARIN SUBQ SCH ×3 (05:01→20:05)
[2018-09-16 05:15] LABS: ALLEN TEST YES; BE -4.5 mmoll (-3.0-3.0); BLOOD TYPE ARTERIAL; HCO3-(ACT) 21.4 mmoll (20.0-26.0); METHB 1.4 % (0.0-1.5); O2(CT) 14.6 mL/dL (15.0-23.0); O2HB 95.1 % (95.0-99.0); PCO2(98.6) 35 mmHg (35-45); PO2(98.6) 96 mmHg (60-100); SAMPLE BLOOD; SAO2 98.2 % (95.0-100.0); THB 10.8 g/dL (11.5-17.4); pH(98.6) 7.37 (7.35-7.45)
[2018-09-16 05:16] LABS: MODALITY BI PAP
[2018-09-16 05:57] LABS: BASO# 0.02 X1000 (0.0-0.2); BASO% 0.2 % (0.0-0.8); EOS# 0.15 X1000 (0.0-0.7); EOS% 1.7 % (0.0-10.0); HEMATOCRIT 26.2 % (42.0-52.0); HEMOGLOBIN 8.2 g/dL (14.0-18.0); IMM GRAN# 0.02 X1000 (0.0-0.04); IMM GRAN% 0.2 % (0.0-0.5); LYMPH# 1.53 X1000 (1.2-3.4); MCH 31.8 PG (27-31); MCHC 31.3 g/dL (33-37); MCV 101.6 FL (81-99); MONO# 1.23 X1000 (0.11-0.59); MONO% 13.7 % (1.7-9.3); MPV 10.2 FL (7.4-10.4); NEUT# 6.05 X1000 (1.4-6.5); NEUT% 67.2 % (42.2-75.2); PLT 233 X1000 (130-400); RBC 2.58 XMIL (4.7-6.1); RDW 13.9 % (11.5-14.5)
[2018-09-16 06:09] LABS: ALB/GLOB RATIO 0.8; ALBUMIN 2.8 g/dL (3.5-5.0); CALCIUM 8.1 mg/dL (8.8-10.2); CREATININE 4.5 mg/dL (0.7-1.2); DIRECT BILIRUBIN 0.4 mg/dL (0.00-0.20); PHOSPHORUS 4.1 mg/dL (2.7-4.5); POTASSIUM 3.3 mmol/L (3.5-5.1); TOTAL BILIRUBIN 0.78 mg/dL (0.20-1.00); TOTAL PROTEIN 6.4 g/dL (6.3-8.3)
[2018-09-16] MEDS ORDERED: TIGHT: 0.2 ML/HR FOR DIALYSIS MISC PRN (08:32)
[2018-09-16] MEDS ORDERED: NS 2,000 ML MISC PRN (08:32)
[2018-09-16] MEDS ORDERED: HEPARIN IV PRN (08:32)
--- NOTE | 2018-09-16 08:57 | Diag Imaging Result Doc PS360 ---
CHEST-PORTABLE - 09/16/2018 INDICATION: Dyspnea COMPARISON: 09/14/2018 FINDINGS: Stable nasogastric tube in good position in the gastric fundus. Stable low lung volumes with right hemidiaphragm elevation. Stable right perihilar atelectasis. Heart size remains top normal. IMPRESSION: No change from prior. Electronically signed by Josesito Cruz 09/16/2018 8:55 AM
[2018-09-16] MEDS: PROTONIX IV SCH ×2 (09:00→20:06)
[2018-09-16] MEDS: CULTURELLE NG SCH ×2 (09:08→20:06)
[2018-09-16] MEDS: SODIUM BICARBONATE 8.4% 100 MEQ in D5W 1,000 ML IV SCH (09:08)
[2018-09-16] MEDS: GEODON IM PRN ×2 (09:18→20:07)
[2018-09-16] MEDS: CUBICIN 600 MG in NS 100 ML IV SCH (09:21)
[2018-09-16] MEDS: FOLIC ACID 1 MG in NS 50 ML IV SCH (11:15)
[2018-09-16] MEDS: THIAMINE 100 MG in NS 50 ML IV SCH (15:18)
[2018-09-16] MEDS: DIFLUCAN 200 MG/NS 200 MG/100 ML IVPB IV SCH (20:06)
[2018-09-16] MEDS: LACTULOSE NG SCH (20:06)
--- NOTE | 2018-09-16 23:33 | PROGRESS NOTE ---
DATE: 09/16/2018 SUBJECTIVE: The patient remains confused, with periods of agitation. No acute events noted overnight. OBJECTIVE: Vital Signs: Temperature 98 degrees, blood pressure 119/78, heart rate 107, respirations 22, oxygen saturation 100% on BiPAP. General: This is a chronically ill-appearing elderly male, currently on BiPAP, in no acute distress. Head normocephalic, atraumatic. Heart: S1, S2 normal. Tachycardic. Lungs: Equal air entry bilaterally. No wheezing. No rales. No rhonchi. Abdomen: Soft, nondistended. Positive bowel sounds. Extremities: 1+ edema in the upper extremities. Trace edema in the right lower extremity. Neurologic: The patient remains confused, and does not follow commands. LABS: White blood cell count 9, hemoglobin 8.2, hematocrit 26, platelets 233, 000. Sodium 145, potassium 3.3, chloride 107, CO2 18, BUN 42, creatinine 4.5, glucose 105, calcium 8.1, phosphorus 4.1, AST 39, ALT 33, alkaline phosphatase 346. IMAGING: Chest x-ray shows right hemidiaphragm elevation. He has right perihilar atelectasis. ASSESSMENT AND PLAN: 1. Bacteremia secondary to VRE. Continue with antibiotic therapy. 2. Right hip infection secondary to VRE. Continue with wound care and antibiotic therapy. 3. Acute kidney injury. The patient is currently on hemodialysis. Management as per the yard operator. 4. Anion gap metabolic acidosis. This will be addressed during dialysis. 5. Metabolic encephalopathy. Unchanged. Will continue to monitor the patient closely for improvement. 6. Diabetes mellitus type 2. Continue on sliding scale insulin. 7. Hepatitis C. Aware. 8. Anemia. Stable. 9. Coronary artery disease status post coronary artery bypass graft. Aware. 10. Peripheral arterial disease. Aware. 11. Severe protein calorie malnutrition. The patient is currently nothing by mouth due to his delirium. The patient will likely benefit from IDPN. 12. Gastrointestinal prophylaxis. Continue on Protonix. 13. Deep vein thrombosis prophylaxis. Continue on heparin. 14. Disposition. The patient is critically ill with a high risk of mortality. cc: Marija Gonzalez MD [facility]
[2018-09-17] MEDS: HUMULIN R SUBQ SCH ×6 (01:53→20:32)
[2018-09-17] MEDS: SODIUM BICARBONATE 8.4% 100 MEQ in D5W 1,000 ML IV SCH ×2 (02:44→13:59)
--- NOTE | 2018-09-17 03:08 | PULMONOLOGY PROGRESS NOTE ---
DATE: 09/16/2018 SUBJECTIVE: The patient is currently on BiPAP. He was agitated earlier, but appears comfortable after a dose of Geodon. OBJECTIVE: Vital Signs: The patient has been afebrile over the last 24 hours. Blood pressure 119/78, respiratory rate 22, heart rate 107, oxygen saturation 100%. HEENT: Pupils are equal. Oropharynx appears dry, but BiPAP is in place. Neck: Supple. Chest: Reveals decreased breath sounds, left base, with prolonged expiratory phase. Cardiac: S1-S2. Abdomen: Soft, with good bowel sounds. LABORATORIES: White blood count 9.0, hemoglobin 8.2, platelet count 233,000. Arterial blood gas on BiPAP 30% reveals a pH 7.37, pCO2 of 35, PO2 of 96. Sodium 145, potassium 3.3, chloride 107, bicarbonate 18, anion gap 20, BUN 42, creatinine 4.5. Chest x-ray reveals chronic elevation right hemidiaphragm, mild basilar atelectasis, clear lung borjas on the left. IMPRESSION: A 58-year-old with chronic paralysis of the right hemidiaphragm, with ventilatory compromise, respiratory acidosis, hyperchloremic metabolic acidosis, and an increased anion gap metabolic acidosis. The patient has delirium, with a history of hepatitis C. The patient also has a hip wound, with a positive wound culture and blood culture for Enterococcus faecium. He continues to require treatment for delirium. RECOMMENDATIONS: 1. Continue to cycle BiPAP as needed for ventilatory insufficiency. Hopefully, as his delirium improves and his anion gap closes, he can be transitioned off BiPAP. 2. Continue current bicarbonate drip. 3. Continue hemodialysis as tolerated. 4. Overall prognosis guarded. cc: Mynor Cabezas MD
[2018-09-17 05:01] LABS: ALLEN TEST YES; BE 2.4 mmoll (-3.0-3.0); BLOOD TYPE ARTERIAL; HCO3-(ACT) 26.8 mmoll (20.0-26.0); METHB 1.2 % (0.0-1.5); O2(CT) 11.5 mL/dL (15.0-23.0); O2HB 95.2 % (95.0-99.0); PCO2(98.6) 37 mmHg (35-45); PO2(98.6) 80 mmHg (60-100); SAMPLE BLOOD; THB 8.5 g/dL (11.5-17.4); pH(98.6) 7.46 (7.35-7.45)
[2018-09-17 05:02] LABS: MODALITY BI PAP
[2018-09-17] MEDS: HEPARIN SUBQ SCH ×3 (05:10→20:32)
[2018-09-17 06:16] LABS: BASO# 0.02 X1000 (0.0-0.2); BASO% 0.3 % (0.0-0.8); EOS# 0.09 X1000 (0.0-0.7); EOS% 1.2 % (0.0-10.0); HEMATOCRIT 24.7 % (42.0-52.0); HEMOGLOBIN 7.9 g/dL (14.0-18.0); LYMPH% 18.1 % (20.5-51.1); MCH 32.4 PG (27-31); MCV 101.2 FL (81-99); MONO# 1.23 X1000 (0.11-0.59); MONO% 15.9 % (1.7-9.3); MPV 10.6 FL (7.4-10.4); NEUT# 4.99 X1000 (1.4-6.5); NEUT% 64.5 % (42.2-75.2); PLT 190 X1000 (130-400); RBC 2.44 XMIL (4.7-6.1); RDW 14.3 % (11.5-14.5); WBC 7.73 X1000 (4.8-10.8)
[2018-09-17 06:36] LABS: ALBUMIN 2.5 g/dL (3.5-5.0); CALCIUM 7.4 mg/dL (8.8-10.2); CREATININE 3.6 mg/dL (0.7-1.2); PHOSPHORUS 3.3 mg/dL (2.7-4.5); POTASSIUM 2.9 mmol/L (3.5-5.1)
--- NOTE | 2018-09-17 06:56 | GASTROENTEROLOGY PROGRESS NOTE ---
DATE: 09/16/2018 SUBJECTIVE: The patient is resting in bed. He is on BiPAP. He is sleepy. He just received Geodon. According to the nursing staff, he had liquid brown stools and no fever reported. PHYSICAL EXAMINATION: Vital Signs: Temperature 98.8 degrees, pulse rate of 82, respiratory rate of 42, blood pressure of 104/70, saturating 98% on BiPAP at FiO2 of 30%. General Appearance: Moderately built, moderately nourished, lying in bed, in no acute distress. HEENT: Pale conjunctiva. BiPAP mask in position. No icterus. Neck: Supple. Abdomen: Soft, nondistended. No guarding. No rebound. Extremities: No cyanosis, clubbing. His upper and lower extremities are in restraints. Neurological: He is sleepy. LABS: Hemoglobin and hematocrit are 8.2 and 26.2, white count of 9, platelet count of 233,000. ABG showing pH 7.37, pCO2 35, PO2 96. This is on BiPAP at 30% FiO2. Sodium of 145, potassium 3.3, chloride 107, bicarb of 18, anion gap 20, BUN of 42, creatinine 4.5, glucose of 105, calcium is 8.1, phosphorus 4.1. Total bilirubin is 0.78, direct of 0.4, AST 39, ALT 33, alkaline phosphatase 346, total protein 6.4, albumin of 2.8. ProBNP is more than 35,000. Stool studies were done which showed negative C. difficile toxin and negative C. difficile antigen. No ova and parasites. His stool for white cells were few. Stool culture showed no growth. IMPRESSION AND PLAN: 1. Bacteremia secondary to Vancomycin-resistant enterococcus. He is on antibiotic treatment under the care of Dr. Coffey. This likely is stemming from a right hip infection. He is undergoing wound care per the primary care team. 2. Acute kidney failure. He has been started on dialysis for the last 2 days under the care of Dr. Carmona. 3. Diabetic ketoacidosis, resolved. 4. Hepatitis C antibody positive. We will follow the PCR. 5. Anemia. Continue to watch for now. Transfuse as needed. 6. Peripheral arterial disease. He is status post left below-knee amputation. 7. Coronary artery disease, status post coronary artery bypass graft. Aware. 8. Protein calorie malnutrition. He is getting intradialytic parenteral nutrition during dialysis. His nasogastric tube feedings are on hold for now because of tenuous respiratory status and agitation. 9. Gastrointestinal prophylaxis with proton pump inhibitors. 10. Deep venous thrombosis prophylaxis. Continue heparin. 11. Altered mental status, likely multifactorial. Neurology is following. 12. Elevated liver enzymes, improving. Continue to follow. 13. The above plan of care was discussed with the patient and nursing staff. All questions were answered. Please call us with any further questions. cc: MD Marija Knight MD
[2018-09-17] MEDS: POTASSIUM CHLORIDE 20 MEQ/SWI 20 MEQ/100 ML IVPB IV SCH ×2 (07:33→09:45)
[2018-09-17] MEDS: LACTULOSE NG SCH ×3 (07:54→20:32)
[2018-09-17] MEDS: PROTONIX IV SCH ×2 (07:54→20:32)
[2018-09-17] MEDS: CULTURELLE NG SCH ×3 (07:54→20:32)
[2018-09-17] MEDS: ELDERTONIC NG SCH (08:07)
--- NOTE | 2018-09-17 08:17 | Diag Imaging Result Doc PS360 ---
CHEST-PORTABLE - 09/17/2018 INDICATION: dyspnea COMPARISON: 09/16/2018 FINDINGS: Stable nasogastric tube in good position. Stable borderline cardiomegaly. Stable right hemidiaphragm elevation. Stable right hilar infiltrate or atelectasis. No new infiltrates. IMPRESSION: No change from prior. Electronically signed by Josesito Cruz 09/17/2018 8:15 AM
[2018-09-17] MEDS: GEODON IM PRN (08:52)
[2018-09-17] MEDS: STERILE WATER INJ. INJ PRN (09:52)
[2018-09-17] MEDS: FOLIC ACID 1 MG in NS 50 ML IV SCH (10:39)
[2018-09-17] MEDS: THIAMINE 100 MG in NS 50 ML IV SCH (14:00)
--- NOTE | 2018-09-17 14:18 | PROGRESS NOTE ---
DATE: 09/17/2018 SUBJECTIVE: The patient is awake today but he does not follow commands on a consistent basis. He remains on BIPAP. OBJECTIVE: Vital Signs: Temperature 98.8 degrees, blood pressure 132/85, heart rate 103, respirations 21, O2 saturation is 98% on BiPAP. Urine output 275. General: This is a chronically ill-appearing, elderly male, lying in bed, in no acute distress. Head: Normocephalic, atraumatic. Heart: S1, S2 normal. Tachycardic. Lungs: Coarse breath sounds bilaterally. No wheezing. No rales. Abdomen: Positive bowel sounds. Soft, nontender, nondistended. Extremities: There is 1+ edema in the upper extremities. No edema in the right lower extremity. The patient has a left BKA. Neurologic: The patient is awake , but confused. He is able to move all 4 extremities. LABS: White blood cell count 7.7, hemoglobin 7.9, hematocrit 24, platelets 190, 000. Sodium 145, potassium 2.9, chloride 104, CO2 23, BUN 27, creatinine 3.6, glucose 115, calcium 7.4, phosphorus 3.3. Chest x-ray: Stable right hilar infiltrate. No new infiltrates. ASSESSMENT AND PLAN: 1. Acute respiratory failure. Continue with BiPAP support as directed by the meat process worker. 2. Bacteremia secondary to vancomycin-resistant enterococci. Continue with antibiotic therapy. 3. Right hip infection secondary to vancomycin-resistant enterococci and silas. Continue with wound care and antibiotic therapy. 4. Acute kidney injury. The patient was dialyzed yesterday. The BUN and creatinine are improved. The patient's urine output is about the same. Management as per the home care scheduler. 5. Metabolic encephalopathy. Continue to monitor for improvement. 6. Hepatitis C. Aware. 7. Coronary artery disease status post coronary artery bypass graft. Aware. 8. Peripheral arterial disease. Aware. 9. Anemia. Stable. 10. Metabolic acidosis. Improved. 11. Severe protein calorie malnutrition. The patient remains NPO. 12. Gastrointestinal prophylaxis. Continue on Protonix. 13. Deep vein thrombosis prophylaxis. Continue on heparin. cc: Marija Gonzalez MD MTDD
[2018-09-17] MEDS: ATIVAN IV PRN (14:21)
--- NOTE | 2018-09-17 15:35 | NEPHROLOGY PROGRESS NOTE ---
DATE: 09/17/2018 SUBJECTIVE: Patient currently resting in bed with BiPAP. Is really not responsive. OBJECTIVE: Vital Signs: Temperature 99, pulse 110, respiratory rate 22, blood pressure 158/96. Intake 3.1 L, output 3.8 L. PHYSICAL EXAMINATION: General: Middle-aged gentleman resting in bed. Does not appear in distress. HEENT: Normocephalic, atraumatic. He has a BiPAP in place. Oral mucosa appears dry. Neck: Supple, without JVD. Cardiovascular: Tachy rate. Regular rhythm. Pulmonary: He has increased work of breathing with the BiPAP. Abdomen: Soft, positive bowel sounds. Genitourinary: Not inspected. Continues with a Vas-Cath. Extremities: No edema. Upper extremities in restraint. Integumentary: Skin is warm and dry. LAB DATA: WBC is 7.7, hemoglobin 7.9. Sodium 149, potassium 2.9. CO2 23, creatinine 3.6. ASSESSMENT AND PLAN: 1. Acute kidney injury with inadequate urine output and worsening renal function. We dialyzed yesterday. He had a total of 3 L in. We removed 3 L out on dialysis. He had another 875 mL out on his wound VAC fecal device in urine. Anticipate we will dialyze again on Tuesday. We will check his labs to determine his dialysate bath. 2. Global encephalopathy. Continue with dialysis. 3. Necrotizing fasciitis to the right hip, followed by primary. Dictated by ANGEL Benitez for Dilip Carmona MD cc: Dilip Carmona MD [facility]
--- NOTE | 2018-09-17 18:50 | GASTROENTEROLOGY PROGRESS NOTE ---
DATE: 09/17/2018 SUBJECTIVE: Resting in bed. He is on BiPAP mask. He was able to open up his eyes on commands. Was able to respond better than yesterday. He is NPO since last 3 days. He is being on dialysis and he is getting IDPN during dialysis. He has a rectal tube which is putting out liquid stool, stool studies tested in the past negative. Vitals: Temperature of 98.8 degrees, pulse of 97, blood pressure 155/70, saturating 100% on BiPAP at 30% FiO2. General: Is moderate built lying in bed in no acute distress. HEENT: Positive pallor, no icterus. BiPAP face mask in place. Neck: Supple. Abdomen: Soft, nontender, no guarding. Extremities: Upper and lower extremity restraints. Left BKA noted. Neuro: He was able to open eyes to commands. LABS: Hemoglobin and hematocrit is 7.9 and 24.7, white count of 7.73, platelet count of 190,000. ABG showing pH of 7.46, pCO2 37, PO2 80 this is on BiPAP at 30% FiO2, sodium 140, potassium 2.9, chloride 104, bicarb 29, gap of 18, BUN of 27, creatinine of 3.6, glucose of 115, calcium, phosphorus 3.3, ammonia 44, albumin of 2.5. Stool studies have been negative for culture. Blood culture showed enterococcus faecium group D and the right hip culture also showed the same bacteria and Eugenia parapsilosis. IMPRESSION AND PLAN: 1. Acute respiratory failure. He is on BiPAP, he is under the care of sales operations coordinator. 2. Malnutrition. He receives intradialytic parenteral nutrition during dialysis, we may be able to restart his tube feeds if okay with the critical care team. I discussed that with the patient nursing staff. 3. Sepsis likely source from right hip infection, he is on antibiotics per the primary team. 4. Acute kidney injury. He is on dialysis per Dr. Carmona. 5. Hepatitis C antibody positive, will follow up the PCR still pending. 6. Previous history alcohol abuse. Currently his ammonia is normal. We have started on empiric banana bag, thiamine and will evaluate the response. 7. Gastrointestinal prophylaxis PPIs. 8. Encephalopathy is improving. 9. The anemia, continue to watch for now and transfuse as needed. 10. The above plans with the patient and nursing staff and all questions. cc: Marija Gonzalez MD MTDD
[2018-09-17] MEDS: DIFLUCAN 200 MG/NS 200 MG/100 ML IVPB IV SCH (20:31)
--- NOTE | 2018-09-17 20:48 | PULMONOLOGY PROGRESS NOTE ---
DATE: 09/17/2018 SUBJECTIVE: Patient is more awake and alert. He will squeeze hands today. He was on his Venturi mask earlier but had significant work of breathing. He was placed back on BiPAP. He currently appears to be comfortable. OBJECTIVE: Vital Signs: The patient has been afebrile for the last 24 hours. Blood pressure 143/87, heart rate 99, respiratory rate 18, oxygen saturation 100%. HEENT: Pupils are equal and reactive. Oropharynx is clear. Neck: Is supple. Chest: Reveals decreased breath sounds right base but otherwise clear to auscultation and percussion. Cardiac: S1-S2. Abdomen: Slightly protuberant and soft with good bowel sounds present. Extremities: Reveal trace edema. LABORATORIES: White blood count 7.73, hemoglobin 7.9, platelet 190,000. Arterial blood gas pH 7.46, pCO2 of 37, PO2 of 80. White blood count 7.73, hemoglobin 7.9, platelet count 190,000. IMPRESSION: 58-year-old with chronic paralysis the right hemidiaphragm, ventilatory insufficiency due to paralyzed diaphragm and increased anion gap acidosis, respiratory acidosis, hyperchloremic metabolic acidosis, increased anion gap metabolic acidosis, hepatitis C. The patient has delirium but he appears to be improving. The patient also has a hip wound with positive enterococcus bacteremia, he continues to slowly improve. RECOMMENDATION: 1. Continue to cycle BiPAP. 2. Continue bicarbonate drip. 3. Continue hemodialysis as tolerated. 4. Continue IDPN and consider tube feeds if he has ongoing clinical improvement. cc: Mynor Cabezas MD
[2018-09-18] MEDS: GEODON IM PRN ×3 (00:14→17:07)
[2018-09-18] MEDS: HUMULIN R SUBQ SCH ×6 (00:25→20:12)
--- NOTE | 2018-09-18 03:51 | NEPHROLOGY PROGRESS NOTE ---
DATE: 09/16/2018 SUBJECTIVE: Patient is resting in bed. He remains on BiPAP. OBJECTIVE: Vital Signs: Temperature 98 degrees, pulse 101, respiratory rate 34, blood pressure 145/80, intake 2.8 L, output 2.6 L. Physical Examination: General: This is a middle-aged gentleman in no distress. HEENT: Normocephalic, atraumatic. He has a BiPAP in place. Neck: Supple, with positive JVD. Cardiovascular: Regular rate and rhythm with tachycardia. Pulmonary: He remains on BiPAP. Rhonchi bilaterally. Abdomen: Soft. Positive bowel sounds. : Not inspected. He does have a Vas-Cath to the right groin, a Arredondo catheter. Extremities: No clubbing, cyanosis. Trace edema. Integumentary: Skin is warm and dry. Laboratory Data: WBC of 9.0, hemoglobin of 8.2. Sodium 145, potassium 3.3, CO2 18, creatinine 4.5. IMPRESSION AND PLAN: 1. Acute kidney injury with inadequate urine output. We initiated dialysis yesterday. We will dialyze him today on a 3 K bath, 2 to 3 L ultrafiltration removal, 3 hour treatment. We will plan to dialyze him again on Tuesday. 2. Global encephalopathy, suspected withdrawal symptoms. Followed by primary. 3. Necrotizing fasciitis to the right hip. Followed by infectious disease. 4. Bacteremia, vancomycin-resistant enterococcus. Followed by primary and infectious disease. Medications include daptomycin and fluconazole. Dictated by ANGEL Benitez for Dilip Carmona MD cc: Dilip Carmona MD
[2018-09-18] MEDS: SODIUM BICARBONATE 8.4% 100 MEQ in D5W 1,000 ML IV SCH ×2 (04:43→17:20)
[2018-09-18] MEDS: HEPARIN SUBQ SCH ×3 (04:43→20:00)
[2018-09-18 04:48] LABS: ALLEN TEST YES; BE 3.9 mmoll (-3.0-3.0); BLOOD TYPE ARTERIAL; HCO3-(ACT) 27.9 mmoll (20.0-26.0); METHB 1.6 % (0.0-1.5); O2(CT) 15.6 mL/dL (15.0-23.0); O2HB 94.3 % (95.0-99.0); PCO2(98.6) 38 mmHg (35-45); PO2(98.6) 81 mmHg (60-100); SAMPLE BLOOD; SAO2 97.7 % (95.0-100.0); THB 11.7 g/dL (11.5-17.4); pH(98.6) 7.47 (7.35-7.45)
[2018-09-18 04:49] LABS: MODALITY BI PAP
[2018-09-18] MEDS ORDERED: NS 2,000 ML MISC PRN (05:59)
--- NOTE | 2018-09-18 06:09 | Diag Imaging Result Doc PS360 ---
EXAM: CHEST-PORTABLE HISTORY: dyspnea TECHNIQUE: Portable chest COMPARISON: 09/17/2018 FINDINGS: No change in the nasogastric tube. Poor inspiratory effort. There are sternal wires and surgical clips with mild cardiomegaly. There is mild vascular distention. No consolidation. No pleural effusions identified. IMPRESSION: Stable chest. Electronically signed by Mingo Fox 09/18/2018 6:06 AM
[2018-09-18 06:22] LABS: BASO# 0.01 X1000 (0.0-0.2); BASO% 0.1 % (0.0-0.8); EOS% 1.3 % (0.0-10.0); HEMATOCRIT 24.3 % (42.0-52.0); HEMOGLOBIN 7.6 g/dL (14.0-18.0); LYMPH% 21.8 % (20.5-51.1); MCH 31.8 PG (27-31); MCHC 31.3 g/dL (33-37); MCV 101.7 FL (81-99); MONO# 1.23 X1000 (0.11-0.59); MONO% 15.7 % (1.7-9.3); MPV 10.9 FL (7.4-10.4); NEUT# 4.77 X1000 (1.4-6.5); NEUT% 61.1 % (42.2-75.2); PLT 191 X1000 (130-400); RBC 2.39 XMIL (4.7-6.1); RDW 14.4 % (11.5-14.5); WBC 7.81 X1000 (4.8-10.8)
[2018-09-18 06:35] LABS: ALBUMIN 2.4 g/dL (3.5-5.0); CREATININE 4.9 mg/dL (0.7-1.2); PHOSPHORUS 3.6 mg/dL (2.7-4.5); POTASSIUM 2.9 mmol/L (3.5-5.1)
[2018-09-18] MEDS: DILAUDID IV PRN (07:57)
[2018-09-18] MEDS: STERILE WATER INJ. INJ PRN ×2 (08:00→17:07)
[2018-09-18] MEDS: CUBICIN 600 MG in NS 100 ML IV SCH (08:01)
[2018-09-18] MEDS: PROTONIX IV SCH ×2 (08:01→20:00)
[2018-09-18] MEDS: CULTURELLE NG SCH ×2 (08:05→19:59)
[2018-09-18] MEDS: LACTULOSE NG SCH ×2 (08:05→19:59)
[2018-09-18] MEDS: ELDERTONIC NG SCH (08:42)
--- NOTE | 2018-09-18 09:07 | INFECTIOUS DISEASE PROGRESS NO ---
DATE: 09/18/2018 PRESENT ILLNESS: The patient has a vancomycin-resistant enterococcal bacteremia and also an infected right hip with Eugenia parapsilosis and vancomycin-resistant enterococcus. MEDICATIONS: The patient is on day 4 of treatment with the combination of daptomycin and fluconazole. PHYSICAL EXAMINATION: Vital Signs: Temperature is 98.4 degrees, pulse 91, respirations 23, blood pressure 153/73. General: This is an ill-appearing, middle-aged male. He is sedated at this time. Head, Eyes, Ears, Nose, and Throat: The patient is wearing a BiPAP mask. There is no drainage from the nose or ears. Neck: No stiffness. The patient does have a left-sided internal jugular venous catheter in place. The site is not swollen or draining. Lungs: Clear to auscultation. Cardiovascular: Heart rate is regular. Abdomen: Soft and nontender. Extremities: The VAC was removed from the patient's right hip and the wound shows beefy red tissue. There is no odor to it. There is no purulence and there is no necrosis. The patient has, in his right groin, a Trialysis catheter. Neurologic: As mentioned above, the patient is sedated. There is no tremor. LABORATORY AND X-RAY: The patient's recent chest x-ray shows no consolidation. The patient's blood cultures are growing enterococcus and the hip culture is growing enterococcus and eugenia. The blood gases show a pH of 7.47, a PO2 of 81, a pCO2 of 38. The creatinine is 4.9. GFR is 15. CBC shows a white count of 7810, hemoglobin 7.6, and platelet count 191,000. ASSESSMENT AND PLAN: The patient has bacteremia and an infected hip. My plan is to continue daptomycin and fluconazole. COMORBIDITIES: He has a history of having necrotizing fasciitis of the hip. The patient also has diabetes mellitus, alcohol abuse, acute kidney injury, congestive heart failure, and global encephalopathy. cc: Segun Coffey MD
[2018-09-18] MEDS ORDERED: HEPARIN IV PRN (10:15)
--- NOTE | 2018-09-18 10:18 | NEPHROLOGY PROGRESS NOTE ---
DATE: 09/18/2018 SUBJECTIVE: Patient resting in bed. He has a BiPAP on, in place. OBJECTIVE: Vital Signs: Temperature afebrile, pulse 91, respiratory rate 23, blood pressure 153/73. Intake 2.6 L. Output 1.2 L, 255 of this was urine output. General: This is a middle- aged gentleman, resting in bed. He continues on BiPAP. He does not appear to be in acute distress. HEENT: Normocephalic, atraumatic. His oral mucosa appears dry. Neck: Supple. There is no JVD in a flat position. Cardiovascular: He continues occasionally tachycardic with a regular rhythm. Pulmonary: Continues with BiPAP. Equal excursion. Abdomen: Hypoactive bowel sounds. Soft. : Not inspected. Extremities: Trace edema. No clubbing, cyanosis. Integumentary: Skin is warm and dry. LAB DATA: WBC of 7.8, hemoglobin 7.6. Sodium 144, potassium 2.9, CO2 26, BUN 32, creatinine 4.9, calcium 8.0, albumin 2.4. ASSESSMENT AND PLAN: 1. Acute kidney injury with inadequate urine output. We will dialyze the patient today on SLED. He will dialyze on a normal potassium, normal sodium, 27 bicarb bath, normal calcium bath today. We will evaluate him tomorrow to determine if he needs daily dialysis or if we can continue with 3 days a week. 2. Necrotizing fasciitis, right hip. Followed by primary. 3. Ventilatory insufficiency. Followed by primary pulmonology. Remains on BiPAP. Dictated by ANGEL Benitez for Dilip Carmona MD Face to face encounter, data reviewed, discussed with Paulino Reid on 09/18/18. I agree with the above assessment and plan of care. cc: Dilip Carmona MD [facility]
--- NOTE | 2018-09-18 10:58 | GASTROENTEROLOGY PROGRESS NOTE ---
DATE: 09/18/2018 SUBJECTIVE: Patient is resting in bed. He is on BiPAP. He is getting hemodialysis today. He is more awake today. He opens eyes to commands. He is still n.p.o. we will await Pulmonary recommendations before starting him on NG tube feedings. OBJECTIVE: Vitals: Temperature 98.3 degrees, pulse rate 107, respiratory rate 19. Blood pressure 150/86. Saturating 100% on BiPAP. General appearance: He is moderately built, moderately nourished, lying in bed. He is on a BiPAP mask. HEENT: BiPAP mask in place. Pale conjunctivae. No icterus. Neck: Supple. Abdomen: Soft, nondistended. No guarding. Extremities: Upper and lower extremity restraints. Status post left below-knee amputation from years ago is noted. Neurologic: He was sleepy. He was able to wake up on command. LABORATORIES: Hemoglobin and hematocrit 7.6, 24.3, white count of 7.81, platelet count of 191,000. PTT of 47.5. ABG showing pH 7.47, pCO2 38, PO2 81/ this is on BiPAP 30% FiO2. Sodium 141, potassium 2.9, chloride 105, bicarb 27.9, anion gap 13, BUN 32, creatinine 4.9, glucose of 110. Calcium is 8, phosphorus 3.6, ammonia 44, albumin of 2.4. Blood cultures repeated today. They are currently pending. IMAGING: Chest x-ray done today showed poor inspiratory effort. Sternal wires and surgical clips with mild cardiomegaly. NG tube in place. No consolidation. No pleural effusion identified. IMPRESSION AND PLAN: 1. Hepatitis C antibody positive. Follow up on the PCR, which is still pending. 2. History of alcohol abuse in the past. We will keep him on banana bag and thiamine. His neurological status is improving. His encephalopathy is improving. 3. Acute kidney injury with inadequate urine output. He is scheduled to have dialysis today and they are about to start him on hemodialysis. 4. Necrotizing fasciitis, right hip. He is on antibiotics per Dr. Coffey. 5. Respiratory failure. He is on BiPAP. Dr. Campo is his seat nailer. 6. Bacteremia. He is on daptomycin, fluconazole. 7. Congestive heart failure. Aware. He is improving. 8. Global encephalopathy. Improving. 9. Anemia. Continue to watch for now, transfuse as needed. 10. Malnutrition. He is on IDPN. We can start him on NG tube feeding if okay with the Pulmonary Critical Care Team. We will await their recommendations. 11. Bowel regimen with lactulose. 12. Gastroenterology prophylaxis with PPIs. 13. The above plan of care discussed with the patient and the nursing staff and all questions answered. cc: MD Marija Knight MD
[2018-09-18] MEDS: FOLIC ACID 1 MG in NS 50 ML IV SCH (11:19)
[2018-09-18] MEDS: ATIVAN IV PRN (12:30)
[2018-09-18] MEDS: THIAMINE 100 MG in NS 50 ML IV SCH (12:33)
--- NOTE | 2018-09-18 15:35 | PROGRESS NOTE ---
DATE: 09/18/2018 SUBJECTIVE: The patient is resting comfortably on BiPAP. No acute events noted overnight. The patient remains delirious. OBJECTIVE: Vital Signs: Temperature 98.6 degrees, blood pressure 131/72, heart rate 101, respirations 26, O2 saturation 97% on BiPAP. General: This is a chronically ill-appearing elderly male, lying in bed in no acute distress. Heart: S1, S2 normal, tachycardic. Lungs: Coarse breath sounds bilaterally. No wheezing. No rales. Abdomen: Positive bowel sounds. Soft, nontender, nondistended. Extremities: 1+ edema in the upper extremities. No edema in the right lower extremity. The patient has a left BKA. Neurologic: The patient is sedated. He is able to move all 4 extremities. DIAGNOSTIC STUDIES: White blood cell count 7.8, hemoglobin 7.6, hematocrit 24, platelets 191,000. Sodium 144, potassium 2.9, chloride 105, CO2 of 26, BUN 32, creatinine 4.9, glucose 110, calcium 8, albumin 2.4. Chest x-ray stable. ASSESSMENT AND PLAN: 1. Acute respiratory failure, multifactorial. Management as per the licensing engineer. 2. Bacteremia secondary to vancomycin-resistant Enterococcus (VRE). Continue with antibiotic therapy. 3. Right hip infection secondary to vancomycin-resistant Enterococcus (VRE) and Eugenia. Continue with antifungals with antibiotic therapy. 4. Acute kidney injury. The patient will be dialyzed today. Further management as per the chief controller. 5. Metabolic encephalopathy. The patient remains delirious. We will continue to monitor for improvement. 6. Hepatitis C. Aware. 7. Peripheral arterial disease. Aware. 8. Right diaphragmatic paralysis. Aware. 9. Metabolic acidosis. Improved. 10. Diabetes mellitus type 2. Continue on sliding scale insulin. 11. Severe protein calorie malnutrition. I discussed this with Dr. Carmona, and he will initiate intradialytic parenteral nutrition (IDPN). 12. Gastrointestinal (GI) prophylaxis. Continue on Protonix. 13. Deep vein thrombosis (DVT) prophylaxis. Continue on heparin. cc: Marija Gonzalez MD [facility]
--- NOTE | 2018-09-18 15:42 | PROGRESS NOTE ---
DATE: 09/18/2018 SUBJECTIVE: Mr. Boyce continues aggressive management of his pulmonary, renal, GI, infectious, and diabetic problems. He is restrained at the wrists on my time at the bedside today. OBJECTIVE: On exam, he seems awake, opened his eyes, raised his eyebrows, fixed his gaze on me, followed me from one side of the bed to the other. He did not follow my requests to raise fingers or open mouth. He did open and close eyes and squeezed my fingers inconsistently to command. Limb tone remains symmetric. He has some hypothenar atrophy. PLAN: We will try to protect ulnar nerve at the elbow. Expect he has significant baseline neuropathy, which will predispose him to compression palsies while hospitalized. Mental status seems to be slowly recovering. I do not have any urgent suggestion from neurology standpoint today. Thanks for asking Neurology to see Mr. Boyce. cc: Yehuda Murray III, MD
[2018-09-18] MEDS: DIFLUCAN 200 MG/NS 200 MG/100 ML IVPB IV SCH (19:59)
[2018-09-19] MEDS: HUMULIN R SUBQ SCH ×6 (00:05→21:09)
[2018-09-19] MEDS: HEPARIN SUBQ SCH ×3 (04:25→21:00)
[2018-09-19 04:55] LABS: ALLEN TEST YES; BE 0.4 mmoll (-3.0-3.0); BLOOD TYPE ARTERIAL; HCO3-(ACT) 25.2 mmoll (20.0-26.0); METHB 1.4 % (0.0-1.5); O2(CT) 11.5 mL/dL (15.0-23.0); O2HB 96.2 % (95.0-99.0); PCO2(98.6) 36 mmHg (35-45); PO2(98.6) 98 mmHg (60-100); SAMPLE BLOOD; SAO2 99.1 % (95.0-100.0); THB 8.4 g/dL (11.5-17.4); pH(98.6) 7.44 (7.35-7.45)
[2018-09-19 04:56] LABS: MODALITY BI PAP
[2018-09-19 05:19] LABS: HEMOGLOBIN 7.8 g/dL (14.0-18.0); RBC 2.44 XMIL (4.7-6.1); WBC 7.77 X1000 (4.8-10.8)
[2018-09-19 05:20] LABS: BASO# 0.03 X1000 (0.0-0.2); BASO% 0.4 % (0.0-0.8); EOS% 3.9 % (0.0-10.0); HEMATOCRIT 25.3 % (42.0-52.0); IMM GRAN# 0.02 X1000 (0.0-0.04); IMM GRAN% 0.3 % (0.0-0.5); LYMPH# 1.71 X1000 (1.2-3.4); MCHC 30.8 g/dL (33-37); MCV 103.7 FL (81-99); MONO# 1.03 X1000 (0.11-0.59); MONO% 13.3 % (1.7-9.3); MPV 10.9 FL (7.4-10.4); NEUT# 4.68 X1000 (1.4-6.5); NEUT% 60.1 % (42.2-75.2); PLT 189 X1000 (130-400); RDW 14.2 % (11.5-14.5)
[2018-09-19 05:30] LABS: ALBUMIN 2.5 g/dL (3.5-5.0); CALCIUM 7.8 mg/dL (8.8-10.2); CREATININE 2.4 mg/dL (0.7-1.2); PHOSPHORUS 2.3 mg/dL (2.7-4.5); POTASSIUM 3.5 mmol/L (3.5-5.1)
--- NOTE | 2018-09-19 07:23 | Diag Imaging Result Doc PS360 ---
EXAM: CHEST-PORTABLE 09/19/2018 HISTORY: dyspnea TECHNIQUE: AP portable at 0506 COMMENT: There is an NG tube with its tip below the diaphragm. There is some ill-defined opacity in the infrahilar region on the right with some apparent platelike opacity. This is slightly worse than on the previous study of 09/18/2018 possibly due to differences in inspiration. It is similar in appearance to 09/17/2018. IMPRESSION: Atelectasis versus pneumonia right lower lobe. Electronically signed by Alex Messer 09/19/2018 7:21 AM
[2018-09-19] MEDS: DILAUDID IV PRN ×2 (09:10→14:50)
[2018-09-19] MEDS: PROTONIX IV SCH (09:11)
[2018-09-19] MEDS: SODIUM BICARBONATE 8.4% 100 MEQ in D5W 1,000 ML IV SCH ×2 (09:11→23:43)
[2018-09-19] MEDS: LACTULOSE NG SCH (09:11)
[2018-09-19] MEDS: CULTURELLE NG SCH ×2 (09:11→21:00)
[2018-09-19] MEDS: ELDERTONIC NG SCH (09:12)
--- NOTE | 2018-09-19 10:08 | GASTROENTEROLOGY PROGRESS NOTE ---
DATE: 09/19/2018 SUBJECTIVE: HD yesterday with 4L removed per RN. No acute overnight events. Patient oriented to self and hospital but not date. He denies N/V/F, CP. +SOB and reported abdominal pain overnight. OBJECTIVE: Vital Signs: Temperature 97.9, heart rate 102, respiratory rate 21, blood pressure 150/85. O2 saturation 100% on BiPAP 30% FiO2 GEN: awake, alert, nods to questions appropriately HEENT: anicteric, MMM, NGT in place NECK: No LAD CV: RRR, no murmurs PULM: decreased BS, on BIPAP ABD: soft NT/ND, NABS, no rebound or guarding, rectal tube with green liquid stool EXT: L BKA, no cce on RLE NEURO: moving all extremities LABS: Na 141, K 3.4 Cl 107 CO2 22 BN 9 Cr 2.4 glu 110 WBC 7.7 Hgb 7.8 plts 189K HCV quant pending A/P: Mr. Charly Boyce is a 58 year old man with history of IDDM2, CHF, CKD, CAD, chronic HCV, chronic anemia, and recent debridement of right hip necrotizing fasciitis who initially presented on 09/09 from rehab with AMS found to have severe metabolic acidosis from DKA, SPENSER now on HD, and E faecium bacteremia from wound infection. GI consulted to evaluate for possible hepatic encephalopathy although patient does not have cirrhosis. His abnormal LFTs show intrahepatic cholestasis likely in the setting of infection, HCV, and fatty liver. He is slowly improving; particularly his mental status. #FEN: recommend starting enteral feeding via NGT when able #Abdominal pain: will obtain KUB to assess; abdominal exam benign; will stop lactulose #AMS: improving; continue supportive care and treating underlying infection; #Abnormal LFTs: downtrending on last check #DKA: on insulin; defer mgmt to primary team #SPENSER on CKD: on HD per renal following; apprec recs #Metabolic acidosis: resolved #Necrotizing fasciitis/bacteremia: on abx per primary #Chronic hepatitis C: unknown if previously treated; HCV quant pending #Anemia: no overt bleeding; trend H/H daily, transfuse prn goal hgb 7-8 Will follow with you. Please call with questions or concerns [facility]
--- NOTE | 2018-09-19 11:03 | INFECTIOUS DISEASE PROGRESS NO ---
DATE: 09/19/2018 PRESENT ILLNESS: The patient has a vancomycin-resistant enterococcal bacteremia and also he has an infected right hip with Eugenia parapsilosis and vancomycin-resistant Enterococcus. The patient's chest x-ray shows right lower lobe pneumonia versus atelectasis. I think it is primarily atelectasis and not pneumonia. MEDICATIONS: The patient has been receiving daptomycin and fluconazole now for 5 days. PHYSICAL EXAMINATION: Vital Signs: Temperature is 98 degrees, pulse 69, respirations 18, blood pressure 140/72. General: This is an ill-appearing, middle-aged male. He is sedated and he has a BiPAP mask on. Head/eyes/ears/nose/throat: No drainage was noted from the nose or ears. He appeared to be able to hear my spoken words. Neck: No stiffness. The patient's catheter has been removed from the neck. The site is not draining or swollen. Lungs: Clear to auscultation. Cardiovascular: Heart rate is regular. Abdomen: Soft and nontender. The patient has in the right groin a catheter placed. The patient has a VAC placed on the right hip wound. Neurologic: Patient is awake. He can move his extremities. There is no tremor. LABORATORY AND X-RAY: CBC shows a white count of 7770, hemoglobin 7.8, and platelet count is 189,000. Blood gases show a pH of 7.44, pO2 of 98, and a pCO2 of 36. Creatinine is 2.4. GFR is 34. Blood cultures are pending. As mentioned above, chest x-ray shows right lower lobe pneumonia versus atelectasis. I think it is atelectasis. ASSESSMENT AND PLAN: 1. The patient has bacteremia and infected hip. I plan to continue daptomycin and fluconazole. 2. Comorbidities: He had necrotizing fasciitis of the hip. He also has diabetes mellitus, alcohol abuse, acute kidney injuries, congestive heart failure, and global encephalopathy. cc: Segun Coffey MD
[2018-09-19] MEDS: GEODON IM PRN (11:04)
[2018-09-19] MEDS: FOLIC ACID 1 MG in NS 50 ML IV SCH (11:04)
[2018-09-19] MEDS: STERILE WATER INJ. INJ PRN (11:04)
--- NOTE | 2018-09-19 12:07 | PROGRESS NOTE ---
DATE: 09/18/2018 Mr. Boyce is awake, alert, attentive. He followed simple commands consistently, including holding up fingers and identifying right and left correctly. He has good lateral eye movement and symmetric facial motility. Neck is supple. Hands are warm. He has weakness in the finger flexors, email manager, finger extensors and finger spreaders bilaterally. Forearm muscle tone is diminished bilaterally. IMPRESSION: 1. Global encephalopathy, multifactorial, much improved today. 2. 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 We will continue trying to protect the ulnar nerve at the elbows and follow clinically. Eventually, nerve conduction study might be helpful. Thanks for asking Neurology to see Mr. Boyce. cc: Yehuda Murray III, MD
[2018-09-19] MEDS: THIAMINE 100 MG in NS 50 ML IV SCH (13:33)
[2018-09-19] MEDS ORDERED: SODIUM CHLORIDE 0.9% INJ SCH (13:45)
--- NOTE | 2018-09-19 13:57 | PROGRESS NOTE ---
DATE: 09/19/2018 SUBJECTIVE: The patient in bed and has a BiPAP mask in place. OBJECTIVE: Vital Signs: Temperature 97.4 degrees, pulse 107, respiratory rate 18, blood pressure is 154/86, oxygen saturation is 100%. HEENT: Atraumatic, normocephalic. Cardiovascular: S1, S2. Respiratory: Good air entry bilaterally. Abdomen: Soft, nontender. No masses felt. Extremities: Has left below-knee amputation and also edema in the right lower extremity. Central nervous system: The patient is poorly responsive. LABORATORY DATA: WBC 7.77, hematocrit 25.3, platelet count of 189,000. ABG 7.44/36/98/99.1%. Chemistry: Sodium 141, potassium 3.5, chloride 107, bicarbonate 22, BUN is 9, creatinine 2.4. ASSESSMENT AND PLAN: 1. Acute respiratory failure. Continue BiPAP support. Follow up on patient's clinical progression, including chest x-ray as well as arterial blood gases. Patient being managed by the pulmonary team. 2. Vancomycin-resistant Enterococcus (VRE) bacteremia. Continue antibiotics as recommended by Infectious Disease. 3. Right hip ulcer. Continue local wound care. 4. Acute kidney injury. Nephrology following. 5. Encephalopathy, multifactorial. Neurology following. 6. Diabetes mellitus. Continue sliding scale insulin as well as blood sugar monitoring. 7. Protein calorie malnutrition. Note plan for IDPN. We will also initiate tube feeding if no contraindication. 8. Gastrointestinal (GI) prophylaxis. Continue proton pump inhibitor. 9. Deep vein thrombosis (DVT) prophylaxis. Heparin. cc: Taiwo Camacho MD
--- NOTE | 2018-09-19 14:08 | Diag Imaging Result Doc PS360 ---
EXAM: CHEST-1 VIEW HISTORY: resp. failure TECHNIQUE: Chest single view COMPARISON: 5:06 AM FINDINGS: There has been no significant change in the appearance of the chest. IMPRESSION: Stable exam. Electronically signed by Mingo Fox 09/19/2018 2:05 PM
--- NOTE | 2018-09-19 14:13 | Diag Imaging Result Doc PS360 ---
EXAM: KUB ABDOMEN HISTORY: evaluate for constipation or obstruction TECHNIQUE: Abdomen single view COMPARISON: 09/12/2018 FINDINGS: No bowel obstruction. No organomegaly. There is a catheter overlying the right side of the pelvis. Moderate atherosclerosis. No abnormal abdominal calcifications. IMPRESSION: No acute abnormality Electronically signed by Mingo Fox 09/19/2018 2:10 PM
--- NOTE | 2018-09-19 14:51 | NEPHROLOGY PROGRESS NOTE ---
DATE: 09/19/2018 SUBJECTIVE: Patient resting in bed. He has been more alert and awake, attempting to talk. He has been calm and cooperative. OBJECTIVE: Vital Signs: Temperature afebrile. Pulse 69, respiratory rate 18, blood pressure 140/72. Intake 2.3 L, output 5.6 L. PHYSICAL EXAMINATION: General: This is a middle-aged gentleman resting in bed. He is awake, alert. He is in no acute distress. HEENT: Normocephalic, atraumatic. JESSIKA. Neck: Supple, without JVD. Cardiovascular: Regular rate and rhythm. Pulmonary: He remains on BiPAP, but does appear to be possibly weaning. Abdomen: Soft. Positive bowel sounds. Genitourinary: Not inspected. Extremities: No clubbing, cyanosis. Integumentary: Skin is warm and dry. His dressing to the hip noted. LAB DATA: WBC of 7.7, hemoglobin 7.8. Sodium 141, potassium 3.5, CO2 22, creatinine 2.4. ASSESSMENT AND PLAN: 1. Acute kidney injury. Inadequate urine output. We ran him on SLED yesterday. We will plan to run him again tomorrow on dialysis and will determine in the morning if he needs SLED or not. 2. Ventilatory insufficiency. Followed by Primary and Pulmonology. 3. Necrotizing fasciitis right hip. Followed by Primary. Being treated by the wound nurse. 4. Electrolytes, acid-base balance, anemia. Continue to monitor and treat as appropriate. Dictated by ANGEL Benitez for Dilip Carmona MD Face to face encounter, data reviewed, discussed with Paulino Reid on 09/19/18. I agree with the above assessment and plan of care. cc: Dilip Carmona MD [facility]
[2018-09-19] MEDS: ATIVAN IV PRN (16:19)
[2018-09-19] MEDS: DIFLUCAN 200 MG/NS 200 MG/100 ML IVPB IV SCH (21:00)
[2018-09-20] MEDS: HUMULIN R SUBQ SCH ×6 (00:57→21:04)
[2018-09-20] MEDS: HEPARIN SUBQ SCH ×3 (04:39→20:25)
[2018-09-20 05:53] LABS: ALLEN TEST YES; BE 2.5 mmoll (-3.0-3.0); BLOOD TYPE ARTERIAL; HCO3-(ACT) 26.9 mmoll (20.0-26.0); METHB 1.1 % (0.0-1.5); O2HB 96.5 % (95.0-99.0); PCO2(98.6) 35 mmHg (35-45); PO2(98.6) 92 mmHg (60-100); SAMPLE BLOOD; SAO2 99.3 % (95.0-100.0); pH(98.6) 7.48 (7.35-7.45)
[2018-09-20 05:54] LABS: MODALITY BI PAP
[2018-09-20 06:20] LABS: ALBUMIN 2.3 g/dL (3.5-5.0); CALCIUM 8.3 mg/dL (8.8-10.2); CREATININE 3.7 mg/dL (0.7-1.2); PHOSPHORUS 3.1 mg/dL (2.7-4.5); POTASSIUM 3.3 mmol/L (3.5-5.1)
[2018-09-20 06:22] LABS: BASO# 0.02 X1000 (0.0-0.2); BASO% 0.2 % (0.0-0.8); EOS# 0.26 X1000 (0.0-0.7); EOS% 2.9 % (0.0-10.0); HEMATOCRIT 24.5 % (42.0-52.0); HEMOGLOBIN 7.5 g/dL (14.0-18.0); IMM GRAN# 0.02 X1000 (0.0-0.04); IMM GRAN% 0.2 % (0.0-0.5); LYMPH# 1.89 X1000 (1.2-3.4); LYMPH% 21.4 % (20.5-51.1); MCH 31.4 PG (27-31); MCHC 30.6 g/dL (33-37); MCV 102.5 FL (81-99); MONO# 0.83 X1000 (0.11-0.59); MONO% 9.4 % (1.7-9.3); MPV 10.1 FL (7.4-10.4); NEUT# 5.82 X1000 (1.4-6.5); NEUT% 65.9 % (42.2-75.2); PLT 201 X1000 (130-400); RBC 2.39 XMIL (4.7-6.1); RDW 13.9 % (11.5-14.5); WBC 8.84 X1000 (4.8-10.8)
[2018-09-20] MEDS ORDERED: NS 2,000 ML MISC PRN ×3 (06:40→07:53)
[2018-09-20] MEDS ORDERED: TIGHT: 0.2 ML/HR FOR DIALYSIS MISC PRN (06:41)
[2018-09-20] MEDS ORDERED: HEPARIN IV PRN (06:41)
[2018-09-20] MEDS: PROTONIX IV SCH (08:01)
[2018-09-20] MEDS: CULTURELLE NG SCH ×2 (08:01→20:25)
[2018-09-20] MEDS: CUBICIN 600 MG in NS 100 ML IV SCH (08:01)
[2018-09-20] MEDS: ELDERTONIC NG SCH (08:05)
--- NOTE | 2018-09-20 08:53 | GASTROENTEROLOGY PROGRESS NOTE ---
DATE: 09/20/2018 SUBJECTIVE: No acute overnight events. Afebrile. Patient tolerating TFs. Rectal tube removed. No N/V. He nods "yes" to CP, SOB, and abdominal pain. OBJECTIVE: Vital Signs: Temperature 97.7, heart rate 77, respiratory rate 28, blood pressure 142/76, O2 saturation 97% on BiPAP, FIO2 of 30%. GEN: awake, alert, nods to questions appropriately HEENT: anicteric, NGT in place, BiPAP NECK: no JVD, supple CV: RRR, no mrg PULM: labored breathing, CTAB anteriorly ABD: soft NT/ND, NABS, no rebound or guarding EXT: RLE no cce NEURO: moving all extremities, follows simple commands LABS: Na 138 K 3.3 CL 104 CO2 19 BUN 13 CR 3.7 WBC 8.4 Hgb 7.5 Plts 201K KUB negative CXR: 09/19: stable A/P: Mr. Charly Boyce is a 58 year old man with history of IDDM2, CHF, CKD, CAD, chronic HCV, chronic anemia, and recent debridement of right hip necrotizing fasciitis who initially presented on 09/09 from rehab with AMS found to have severe metabolic acidosis from DKA, SPENSER now on HD, and E faecium bacteremia from wound infection. GI consulted to evaluate for possible hepatic encephalopathy although patient does not have cirrhosis. His abnormal LFTs show intrahepatic cholestasis likely in the setting of infection, HCV, and fatty liver. He is slowly improving; particularly his mental status. He is now tolerating TFs at 20 cc/hr #FEN: continue TFs and titrate to goal; apprec nutrition recs #Hypoxic respiratory failure: on BIPAP; wean O2; defer to primary #Abdominal pain: KUB negative; abdominal exam benign #AMS: improving; continue supportive care and treating underlying infection #DKA: on insulin; defer mgmt to primary team #SPENSER on CKD: on HD as per renal following; apprec recs #Necrotizing fasciitis/bacteremia: on abx per primary #Chronic hepatitis C: patient reports prior treatment in the past #Anemia: no overt bleeding; trend H/H daily, transfuse prn goal hgb 7-8 Will follow with you. Please call with questions or concerns [facility]
[2018-09-20] MEDS: FOLIC ACID 1 MG in NS 50 ML IV SCH (11:54)
--- NOTE | 2018-09-20 11:57 | PROGRESS NOTE ---
DATE: 09/20/2018 SUBJECTIVE: Patient is resting in bed. Her sensorium seems to have improved. He does have a BiPAP mask in place. OBJECTIVE: Vital signs: Temperature is a 100.1 degrees, pulse 77, respirations 20, blood pressure is 146/71, oxygen saturation is 100%. HEENT: Atraumatic, normocephalic. BiPAP mask in place. Cardiovascular: S1, S2. Respiratory system: Has evidence of good air entry bilaterally. Abdomen: Soft, nontender. No masses felt. Extremities: No significant edema in the right lower extremity. The patient does have a left BKA. LABORATORY DATA: WBC is 8.8, hematocrit 24.5, with a platelet count of 201,000. Sodium is 138, potassium 3.3, chloride is 104, bicarb is 19, BUN is 13, creatinine is 3.7. ABG 7.48/35/92/99.3%. ASSESSMENT AND PLAN: 1. Acute respiratory failure. Continue BiPAP support. Maintain patient on oxygen. Follow up on clinical progression, including chest x-ray as well as ABG. The patient will be managed by Pulmonary Team. 2. Vancomycin-resistant enterococcus bacteremia. Continue antibiotics as recommended by Infectious Disease. 3. Right hip ulcer. Continue local wound care. 4. Acute kidney injury. Nephrology following. 5. Encephalopathy. Improving. Urology following. 6. Diabetes mellitus. Continue blood sugar monitoring as well as sliding scale insulin. 7. Protein calorie malnutrition. The patient has been started on an OG tube feeding. 8. Gastrointestinal prophylaxis. Proton pump inhibitor. 9. DVT prophylaxis. Heparin. cc: Taiwo Camacho MD
--- NOTE | 2018-09-20 12:29 | PROGRESS NOTE ---
DATE: 09/20/2018 Mr. Boyce is awake and alert. He reports not feeling well, but he did not have a specific complaint for me today. He continues to improve neurologically, and encephalopathy continues to resolve. I do not have any new suggestion today from neurologic standpoint. Thanks for asking us to follow Mr. Boyce. cc: Yehuda Murray III, MD
[2018-09-20] MEDS: THIAMINE 100 MG in NS 50 ML IV SCH (14:11)
[2018-09-20] MEDS: SODIUM BICARBONATE 8.4% 100 MEQ in D5W 1,000 ML IV SCH (14:11)
[2018-09-20] MEDS: DILAUDID IV PRN (15:00)
[2018-09-20] MEDS: GEODON IM PRN (15:05)
[2018-09-20] MEDS: STERILE WATER INJ. INJ PRN (15:05)
[2018-09-20] MEDS: DIFLUCAN 200 MG/NS 200 MG/100 ML IVPB IV SCH (20:24)
[2018-09-20] MEDS: MAXIPIME 1 GM in NS 50 ML IV SCH (20:24)
[2018-09-20] MEDS: ATIVAN IV PRN (21:04)
--- NOTE | 2018-09-20 21:37 | NEPHROLOGY PROGRESS NOTE ---
DATE: 09/20/2018 SUBJECTIVE: He is still on BiPAP, but he is alert, answers my questions. He denies shortness of breath, pain or other symptoms. His exam was performed at approximately 0645. OBJECTIVE: Vital Signs: Blood pressure 140/68, heart rate 86, respirations 23 T-max 100.1. Urine output 120 mL. PHYSICAL EXAMINATION: General: No acute distress. Skin: Warm and dry. Conjunctivae are pink. Neck veins are not appreciated. Cardiovascular: Heart is regular. Lungs: Have a few scattered rhonchi. Abdomen: Soft, nontender. Diminished bowel sounds. Extremities: 1+ edema in the arms only. IMPRESSION: Acute kidney injury. No recovery. Acid base and electrolytes are much better managed. He will receive hemodialysis in the form of SLED today, with goal of 2 to 4 L ultrafiltration as his blood pressure allows. 4K bath. Twenty-seven bicarbonate. cc: Dilip Carmona MD
--- NOTE | 2018-09-20 21:37 | INFECTIOUS DISEASE PROGRESS NO ---
DATE: 09/20/2018 PRESENT ILLNESS: The patient has a vancomycin-resistant enterococcal bacteremia, an infected right hip with Eugenia parapsilosis and vancomycin-resistant Enterococcus, and finally a right lower lobe pneumonia. Yesterday, I thought that the infiltrate seen on x-ray was atelectasis and not pneumonia, but today the patient's temperature did get up to did get up to 100.1, and the nurse noticed that the patient was coughing up some purulent sputum. For these reasons, I think now that the patient may indeed be having a right lower lobe pneumonia. MEDICATIONS: The patient has been on daptomycin and fluconazole for 6 days. PHYSICAL EXAMINATION: Vital Signs: Temperature earlier was 100.1, now it is 98.2, pulse is 98, respirations 25, blood pressure 93/60. General: This is an ill-appearing middle-aged male. He is sedated. He has an oxygen mask on. Head, eyes, ears, nose, and throat: He does not have any drainage coming from his nose or ears. I was unable to examine his mouth. Neck: No stiffness. Patient has an external jugular venous catheter in place on the left side. Lungs: Clear to auscultation. Cardiovascular: Regular heart rate. Abdomen: Soft and nontender. In the right groin, there is a Trialysis catheter present. The site does not appear to be draining or swollen. Neurologic: The patient is sedated. He did not respond to verbal stimuli. DIAGNOSTIC STUDIES: Chest x-ray shows a right lower lobe atelectasis versus pneumonia. CK is 60. Creatinine is 3.7, GFR is 21. Blood gases shows pH of 7.48, a PO2 of 92, and a pCO2 of 35. CBC shows a white count of 8840, hemoglobin 7.5, and platelet count 201,000. ASSESSMENT AND PLAN: The patient has bacteremia and an infected right hip. I plan to continue daptomycin and fluconazole. My thinking has changed now, and I think the patient actually is developing a right lower lobe pneumonia. I have ordered blood cultures and a sputum culture, and I have put the patient on cefepime pending culture results. PATIENT'S COMORBIDITIES: 1. He had necrotizing fasciitis of the right hip. 2. He is also a diabetic. 3. He is an alcoholic. 4. He has acute kidney injury. 5. Congestive heart failure. 6. Global encephalopathy. cc: Segun Coffey MD
[2018-09-21] MEDS: HUMULIN R SUBQ SCH ×6 (00:57→21:00)
[2018-09-21] MEDS: DILAUDID IV PRN ×2 (00:57→15:24)
[2018-09-21] MEDS: SODIUM BICARBONATE 8.4% 100 MEQ in D5W 1,000 ML IV SCH ×2 (04:26→21:00)
[2018-09-21] MEDS: HEPARIN SUBQ SCH ×3 (04:26→21:00)
[2018-09-21 04:58] LABS: BASO# 0.02 X1000 (0.0-0.2); BASO% 0.2 % (0.0-0.8); EOS# 0.23 X1000 (0.0-0.7); HEMATOCRIT 26.3 % (42.0-52.0); IMM GRAN# 0.03 X1000 (0.0-0.04); IMM GRAN% 0.3 % (0.0-0.5); LYMPH# 1.96 X1000 (1.2-3.4); LYMPH% 17.2 % (20.5-51.1); MCH 31.6 PG (27-31); MCHC 30.4 g/dL (33-37); MONO# 1.16 X1000 (0.11-0.59); MONO% 10.2 % (1.7-9.3); MPV 10.7 FL (7.4-10.4); NEUT# 8.02 X1000 (1.4-6.5); NEUT% 70.1 % (42.2-75.2); PLT 184 X1000 (130-400); RBC 2.53 XMIL (4.7-6.1); RDW 13.6 % (11.5-14.5); WBC 11.42 X1000 (4.8-10.8)
[2018-09-21 05:39] LABS: ALBUMIN 2.6 g/dL (3.5-5.0); CALCIUM 8.2 mg/dL (8.8-10.2); CREATININE 2.6 mg/dL (0.7-1.2); PHOSPHORUS 1.6 mg/dL (2.7-4.5); POTASSIUM 3.9 mmol/L (3.5-5.1)
--- NOTE | 2018-09-21 07:17 | Diag Imaging Result Doc PS360 ---
EXAM: CHEST/ABD TUBE PLACEMENT INDICATION: NGT placement TECHNIQUE: One view COMPARISON: 09/21/2018 FINDINGS: There is a newly placed NG tube. The tip projects below the diaphragm and is assumed to be in the lumen of the stomach in the expected position. Limited views of the chest are unchanged, otherwise. IMPRESSION: Interval placement of NG tube in the expected position as described. Electronically signed by Anshul Connolly 09/21/2018 7:15 AM
--- NOTE | 2018-09-21 07:27 | Diag Imaging Result Doc PS360 ---
EXAM: CHEST-1 VIEW 09/21/2018 HISTORY: resp failure TECHNIQUE: AP portable at 0518 COMMENT: The inspiration is less optimal than on 09/19/2018. There is an NG tube the tip of which is apparently at the gastric cardia. The possibility of slightly worsened atelectasis in the right middle and lower lobes cannot be excluded, however this is likely simply a difference in inspiration. IMPRESSION: Poor inspiration. Electronically signed by Alex Messer 09/21/2018 7:25 AM
[2018-09-21] MEDS: ELDERTONIC NG SCH (08:00)
[2018-09-21] MEDS: CULTURELLE NG SCH ×2 (08:00→21:00)
[2018-09-21] MEDS: PROTONIX IV SCH (09:14)
[2018-09-21] MEDS: FOLIC ACID 1 MG in NS 50 ML IV SCH (11:15)
--- NOTE | 2018-09-21 11:21 | PROGRESS NOTE ---
DATE: 09/21/2018 SUBJECTIVE: Mr. Boyce is awake and alert. He answered some questions, but speech was mostly mumbling and I could not understand him. He moved each limb purposefully. He has full lateral eye movement. Neck is supple without meningismus. I asked him about headache, but I could not understand his response. IMPRESSION: I do not see anything definitely new from Neurology standpoint. His level of alertness and attention have improved dramatically since last week. I hope that his cognitive function will recover. I do not know his baseline cognitive function and I do not know how far he is from baseline. Thanks for asking Neurology to see Mr. Boyce. cc: Yehuda Murray III, MD
--- NOTE | 2018-09-21 12:25 | GASTROENTEROLOGY PROGRESS NOTE ---
DATE: 09/21/2018 SUBJECTIVE: Patient is resting in bed. The patient is feeling better. He was made more alert and oriented. He was able to answer some of my questions. He is tolerating tube feeds at 40 mL/hour. He has reached his goal. He was afebrile for the last 24 hours. OBJECTIVE: Vital signs: Temperature 97.9 degrees, pulse of 96, respiratory 28 , blood pressure 115/61, saturating 100% on Ventimask at 15 liters. General Appearance: Moderately built, lying in bed, in no acute distress. HEENT: Positive pallor. No icterus. Face mask in place. Neck: Supple. Abdomen: Soft, nondistended. No guarding or rebound. Extremities: He has left below- knee amputation which was noted. He has restraints in upper lower extremities. Neuro dueñas: He is awake and alert, and answers questions. LABS: Hemoglobin and hematocrit is 8 and 26.3, white count 11.42, platelet count of 184,000. Sodium 140, potassium 3.9, chloride 100, bicarb 23, anion gap 9, BUN of 6, creatinine of 2.6, glucose of 172, calcium is 8.2, phosphorus 1.6. Albumin of 2.6. He is making very little urine. His fecal device is still putting out a lot of stool amounting to 2975 mL in last 24hours. Stool is\ liquid brown green. Blood culture was drawn yesterday and is currently pending. IMPRESSION AND PLAN: 1. Malnutrition. He has reached his goal with tube feeding. His neurological status is improving. Hopefully, he can start eating orally. He may need a repeat swallow evaluation once cleared by respiratory/pulmonary team. 2. Hypoxic respiratory failure. He is weaning down. He is on Ventimask. 3. Diarrhea. His stools are negative in the past. We will start him on Culturelle b.i.d. through the NG tube. 4. Diabetic ketoacidosis on insulin. 5. Altered mental status is improving. Neurology is following. 6. Acute kidney injury on dialysis. His BUN is improved. 7. Necrotizing fasciitis and bacteremia on antibiotics. Source is a hip infection. 8. History of left below-knee amputation, aware. 9. Chronic hepatitis C. PCR is still pending. Will follow up. 10. Gastrointestinal prophylaxis with proton-pump inhibitors. 11. Deep venous thrombosis. 12. Anemia. Continue to watch for now and transfuse as needed. 13. Above plan and case was discussed with the patient and nursing staff, and all questions were answered. Please call us with any questions. cc: MD Taiwo Knight MD MTDD
[2018-09-21] MEDS: THIAMINE 100 MG in NS 50 ML IV SCH (12:39)
--- NOTE | 2018-09-21 12:51 | NEPHROLOGY PROGRESS NOTE ---
DATE: 09/21/2018 TIME SEEN: 0625. SUBJECTIVE: Charly Boyce is resting quietly in bed. He is remains on a 50% Ventimask. No complaints, opens eyes randomly. VITAL SIGNS: Last temperature 98.1 degrees, blood pressure 122/80, heart rate 107, respirations 23. He is on 50% Ventimask. His last recorded saturation is 100%. He has had 3290 in, 8000 out with dialysis of 5 L yesterday. LABORATORY DATA: Sodium 142, potassium 3.9, chloride 110, CO2 23, BUN 6, creatinine 2.6, glucose 172, anion gap 9, calcium 8.2, phosphorus 1.6, albumin 2.6. White count 11.42, hemoglobin 8, hematocrit 26.3, platelet count 184,000. PHYSICAL EXAMINATION: General: This is a 58-year-old male currently resting in bed. He is awake and alert. No acute distress. Skin: Warm and dry. HEENT: Normocephalic, atraumatic. Conjunctivae pale. He has JESSIKA. Mucous membranes are dry. Neck: Supple. Trachea midline. Positive JVD at the 6 cm king. Cardiovascular: He has irregular rate and rhythm today. Questionable S4 present. Lungs: Clear to auscultation bilaterally. Equal excursion on a 50% Ventimask. Abdomen: Large, round, slightly distended. Positive bowel sounds. Genitourinary: Not inspected. Extremities: No edema, no clubbing or cyanosis. Integumentary : Warm and dry. Dressing noted to the hip. Neurological: As mentioned above. ASSESSMENT AND PLAN: 1. Acute kidney injury. The patient has had inadequate urine. We have attempted to dialyze him on a daily basis for fluid volume management. We will hold dialysis today with plans for possible dialysis in the morning. We will continue to monitor with strict intake and output. 2. Respiratory distress. The patient has been taken off his BiPAP. He is currently on 50% Ventimask, tolerating this well. Good saturation noted. Followed by primary care and Pulmonology. 3. Electrolytes, acid-base balance, and anemia. These are all stable with appropriate treatments. 4. Necrotizing fasciitis to the right hip, followed by the wound nurse and primary care with appropriate renal-dosed antibiotics. I would to thank you for allowing us to follow with this patient. Dictated by ANGEL Mcgrath for Dilip Carmona MD Face to face encounter, data reviewed, discussed with Eleanor Valdez on 09/21/18. I agree with the above assessment and plan of care. cc: ANGEL Mcgrath MD [facility]
--- NOTE | 2018-09-21 13:15 | PROGRESS NOTE ---
DATE: 09/21/2018 SUBJECTIVE: The patient is resting in bed. Seems to be more awake as well as interactive. OBJECTIVE: Vital signs: Temperature is 98.9 degrees, pulse 104, respirations 23, blood pressure is 129/59, oxygen is 97%. HEENT: Atraumatic, normocephalic. Cardiovascular: S1, S2. Respiratory: Has evidence of good air entry bilaterally. Abdomen: Soft, nontender. No masses felt. Extremities: Has left below-knee amputation. No significant edema in the right lower extremity. Central nervous system: The patient is awake, better with improved sensorium today. No obvious focal deficits noted. LABORATORY DATA: WBC 11.42, hematocrit is 26.3 with a platelet count of 184,000. Sodium is 142, potassium 3.9, chloride is 110, bicarb 23, BUN is 6, creatinine 2.6. IMAGING: X-ray chest shows the possibility of slightly worsened atelectasis in the right middle and lower lobes which cannot be excluded. ASSESSMENT AND PLAN: 1. Acute respiratory failure. The patient seems to have weaned off BiPAP for right now, and he is currently on Ventimask. Oxygen requirement is much less. X-ray of the chest shows some atelectasis in the right middle as well as lower lobes. We will continue to follow up on the patient's clinical progression. Pulmonary Team on board. 2. Vancomycin-resistant enterococcus bacteremia. Continue antibiotics as recommended by ID. 3. Right hip ulcer. Continue local wound care. 4. Acute kidney injury. Follow up on renal function. Avoid nephrotoxic agents. Nephrology following. 5. Encephalopathy. Improving. 6. Diabetes mellitus. Continue blood sugar monitor as well as sliding scale insulin. 7. Protein calorie nutrition. The patient is currently on OGT feeding. We will get a swallow evaluation and if the patient does well, we can start him on a regular diet. 8. Gastrointestinal prophylaxis. Proton pump inhibitor. 9. Deep vein thrombosis prophylaxis. Heparin. cc: Taiwo Camacho MD
[2018-09-21] MEDS: ATIVAN IV PRN (17:29)
[2018-09-21] MEDS: GEODON IM PRN (19:30)
[2018-09-21] MEDS: STERILE WATER INJ. INJ PRN (19:32)
[2018-09-21] MEDS: MAXIPIME 1 GM in NS 50 ML IV SCH (21:00)
[2018-09-21] MEDS: DIFLUCAN 200 MG/NS 200 MG/100 ML IVPB IV SCH (21:00)
--- NOTE | 2018-09-21 22:27 | INFECTIOUS DISEASE PROGRESS NO ---
DATE: 09/21/2018 PRESENT ILLNESS: The patient has a vancomycin-resistant enterococcal bacteremia and an infected right hip with Eugenia parapsilosis and vancomycin-resistant Enterococcus. Also, on x-ray, the patient has a possible right lower lobe versus atelectasis. MEDICATIONS: The patient is on daptomycin and fluconazole for 7 days, and cefepime for 1 day. PHYSICAL EXAMINATION: Vital Signs: Temperature maximum was 100.2, now it is 100. Pulse 111. Respirations 27, blood pressure 131/73. General: This is an ill-appearing, middle-aged male. He is sedated. He is in no acute distress. Head, Eyes, Ears, Nose, and Throat: The patient has an oxygen mask on. There is no drainage from the nose or ears. Neck: No stiffness. Lungs: Clear to auscultation. Cardiovascular: Regular heart rate. Abdomen: Soft and nontender. The patient in the right groin has a Trialysis catheter. The patient's right hip has a wound, and the VAC is covering it. Extremities: The patient has a left [id number] amputation. The incision is intact. Neurologic: The patient is lethargic. He did not follow request to move his extremities. LAB AND X-RAY: Chest x-ray shows right-sided atelectasis. CBC shows a white count of 11,420, hemoglobin 8, and platelet count 184,000. Creatinine is 2.6. GFR is 31. CK is 60. ASSESSMENT AND PLAN: The patient has an infected right hip and possible pneumonia. For right now, I am going to continue with his cefepime, daptomycin, and fluconazole. cc: Segun oCffey MD
[2018-09-22] MEDS: DILAUDID IV PRN ×3 (00:49→18:24)
[2018-09-22] MEDS: HUMULIN R SUBQ SCH ×6 (01:30→20:18)
[2018-09-22] MEDS: ATIVAN IV PRN ×2 (03:32→16:34)
[2018-09-22] MEDS: HEPARIN SUBQ SCH ×3 (04:20→20:18)
[2018-09-22 04:45] LABS: ALLEN TEST YES; BE -0.9 mmoll (-3.0-3.0); BLOOD TYPE ARTERIAL; METHB 0.7 % (0.0-1.5); O2(CT) 9.7 mL/dL (15.0-23.0); PCO2(98.6) 36 mmHg (35-45); SAMPLE BLOOD; SAO2 86.9 % (95.0-100.0); THB 8.2 g/dL (11.5-17.4); pH(98.6) 7.42 (7.35-7.45)
[2018-09-22 04:46] LABS: MODALITY ROOM AIR
[2018-09-22 04:47] LABS: O2HB 84.2 % (95.0-99.0); PO2(98.6) 42 mmHg (60-100)
[2018-09-22 05:54] LABS: BASO# 0.04 X1000 (0.0-0.2); BASO% 0.3 % (0.0-0.8); EOS# 0.46 X1000 (0.0-0.7); EOS% 3.7 % (0.0-10.0); HEMATOCRIT 25.9 % (42.0-52.0); LYMPH# 2.06 X1000 (1.2-3.4); LYMPH% 16.7 % (20.5-51.1); MCH 31.9 PG (27-31); MCHC 30.9 g/dL (33-37); MCV 103.2 FL (81-99); MONO# 1.09 X1000 (0.11-0.59); MONO% 8.9 % (1.7-9.3); MPV 10.5 FL (7.4-10.4); NEUT# 8.65 X1000 (1.4-6.5); NEUT% 70.4 % (42.2-75.2); PLT 220 X1000 (130-400); RBC 2.51 XMIL (4.7-6.1); RDW 13.3 % (11.5-14.5)
[2018-09-22 06:18] LABS: ALB/GLOB RATIO 0.7; ALBUMIN 2.5 g/dL (3.5-5.0); CALCIUM 8.3 mg/dL (8.8-10.2); CREATININE 3.9 mg/dL (0.7-1.2); POTASSIUM 3.2 mmol/L (3.5-5.1); TOTAL BILIRUBIN 0.72 mg/dL (0.20-1.00); TOTAL PROTEIN 5.9 g/dL (6.3-8.3)
--- NOTE | 2018-09-22 06:35 | Diag Imaging Result Doc PS360 ---
EXAM: CHEST-1 VIEW HISTORY: resp failure TECHNIQUE: Portable chest single view COMPARISON: 09/21/2018 FINDINGS: The right hemidiaphragm is elevated. Sternal wires are present. Heart is mildly prominent. The nasogastric tube overlies the esophagus and stomach. No pleural effusions identified. Mild central vascular prominence. No consolidation. IMPRESSION: Stable chest. Electronically signed by Mingo Fox 09/22/2018 6:32 AM
[2018-09-22] MEDS ORDERED: NS 2,000 ML MISC PRN ×2 (07:36→08:16)
[2018-09-22] MEDS ORDERED: TIGHT: 0.2 ML/HR FOR DIALYSIS MISC PRN (08:16)
[2018-09-22] MEDS ORDERED: HEPARIN IV PRN (08:16)
[2018-09-22] MEDS: CULTURELLE NG SCH ×2 (08:29→20:18)
[2018-09-22] MEDS: CUBICIN 600 MG in NS 100 ML IV SCH (08:29)
[2018-09-22] MEDS: PROTONIX IV SCH (08:30)
[2018-09-22] MEDS: SODIUM BICARBONATE 8.4% 100 MEQ in D5W 1,000 ML IV SCH ×2 (08:30→12:28)
[2018-09-22] MEDS: ELDERTONIC NG SCH (08:30)
--- NOTE | 2018-09-22 09:06 | PROVIDER PROGRESS NOTE ---
Progress Note - - SUBJECTIVE: No acute overnight events. He was weaned to 2L NC. He continues to have confusion. No N/V/F, CP, abdominal pain. He is tolerating tube feeds. Rectal tube in place OBJECTIVE: Last Vital Signs Temp 98.9 F 09/22/18 08:00 Pulse 105 H 09/22/18 08:47 Resp 33 H 09/22/18 08:47 BP 155/66 09/22/18 08:47 Pulse Ox 99 09/22/18 08:47 Height 5 ft 11 in Weight 191 lb 5 oz GEN: awake, alert, nods to questions appropriately HEENT: anicteric, NGT in place NECK: no JVD, supple CV: RRR, no mrg PULM: labored breathing, CTAB anteriorly ABD: soft NT/ND, NABS, no rebound or guarding EXT: RLE no cce NEURO: moving all extremities, follows simple commands LABS: 09/22/18 09/22/18 04:35 04:35 WBC 12.30 H Hgb 8.0 L Plt Count 220 Sodium 142 Potassium 3.2 L D Chloride 107 Carbon Dioxide 23 L BUN 10 D Creatinine 3.9 H Glucose 157 H Total Bilirubin 0.72 AST 31 ALT 21 Alkaline Phosphatase 275 H Total Protein 5.9 L Albumin 2.5 L IMAGING: EXAM: CHEST-1 VIEW 09/22/2018 FINDINGS: The right hemidiaphragm is elevated. Sternal wires are present. Heart is mildly prominent. The nasogastric tube overlies the esophagus and stomach. No pleural effusions identified. Mild central vascular prominence. No consolidation. IMPRESSION: Stable chest. A/P: Mr. Charly Boyce is a 58 year old man with history of IDDM2, CHF, CKD, CAD, chronic HCV, chronic anemia, and h/o right hip necrotizing fasciitis s/p debridement who presented on from rehab with AMS found to have severe metabolic acidosis from DKA, SPENSER now on HD, and E faecium bacteremia from wound infection. GI consulted to evaluate for possible hepatic encephalopathy although patient does not have cirrhosis. His abnormal LFTs show intrahepatic cholestasis likely in the setting of infection, HCV, and fatty liver. He is slowly improving; particularly his mental status. He is tolerating TFs and now of BiPAP. #FEN: continue TFs; recommend bedside swallow eval #Hypoxic respiratory failure: wean O2; defer to primary #Abdominal pain: resolved #AMS: slowly improving; continue supportive care and treating underlying infection #DKA: on insulin; defer mgmt to primary team #SPENSER on CKD: on HD as per renal following; apprec recs #Wound infection/bacteremia: on abx per ID #Chronic hepatitis C: treated #Anemia: no overt bleeding; trend H/H daily, transfuse prn goal hgb 7-8 Will follow with you. Please call with questions or concerns
[2018-09-22] MEDS: THIAMINE 100 MG in NS 50 ML IV SCH (15:39)
--- NOTE | 2018-09-22 15:39 | PROGRESS NOTE ---
DATE: 09/22/2018 SUBJECTIVE: The patient is resting comfortably in bed. The patient's sensorium is much better. OBJECTIVE: Vital signs: Vital signs are as follows: Temperature is 98.3, pulse 103, respirations 29, blood pressure is 130/85, O2 saturation is 92%. HEENT: Atraumatic normocephalic. Cardiovascular system: S1, S2. Respiratory system: Has evidence of good air entry bilaterally. Abdomen: Soft, nontender. No masses felt. Extremities: No evidence of edema. Central nervous system: The patient's sensorium is much better. LABORATORY DATA: WBC is 12.3, hematocrit 25.9 with a platelet count of 220. AB.42/33/42/84.2%. Chemistry: Sodium 142, potassium 3.2, chloride 107, bicarbonate 23. BUN is 10, creatinine is 3.9. X-RAYS: X-ray of the chest shows no consolidation. ASSESSMENT AND PLAN: 1. Acute respiratory failure. Maintain patient on antibiotics, on oxygen. Pulmonary team following. 2. Vancomycin-resistant Enterococcus bacteremia. Continue antibiotics as recommended. 3. Right hip ulcer. Continue local wound care. 4. Acute kidney injury. Follow up on renal function. Avoid nephrotoxic agents. Nephrology following. 5. Encephalopathy, improving. 6. Diabetes mellitus. Continue blood sugar monitoring, as well as sliding scale insulin. 7. Protein calorie malnutrition. Continue esophagogastric tube feeding. 8. Gastrointestinal prophylaxis. Proton pump inhibitor. 9. Deep vein thrombosis prophylaxis. Heparin. cc: Taiwo Camacho MD
[2018-09-22] MEDS: POTASSIUM CHLORIDE 20 MEQ/SWI 20 MEQ/100 ML IVPB IV SCH ×2 (16:34→17:06)
[2018-09-22] MEDS: FOLIC ACID 1 MG in NS 50 ML IV SCH (16:35)
[2018-09-22] MEDS: STERILE WATER INJ. INJ PRN (17:07)
[2018-09-22] MEDS: GEODON IM PRN (17:07)
--- NOTE | 2018-09-22 17:19 | NEPHROLOGY PROGRESS NOTE ---
DATE: 09/22/2018 SUBJECTIVE: He is awake, alert. The staff states that he is somewhat agitated pulls at his tubes and pumps. OBJECTIVE: Vital Signs: Blood pressure 100/83, heart rate 109, respirations 24, T max 100.1. General: No acute distress. Warm and dry. Conjunctivae are pink. Neck: Neck veins are not appreciated. Oropharynx is dry. Heart: Regular. Lungs: Equal. No crackles. Cough present. Abdomen: Soft. Extremities: No edema, clubbing or cyanosis. IMPRESSION: Acute kidney injury. No recovery. He will have standard hemodialysis today for 3- 1/2 hours using a 3 K bath. 2 to 3 L ultrafiltration. cc: Dilip Carmona MD
[2018-09-22] MEDS ORDERED: HALDOL IM ONE (18:14)
--- NOTE | 2018-09-22 19:37 | INFECTIOUS DISEASE PROGRESS NO ---
DATE: 09/26/2018 PRESENT ILLNESS: The patient has a vancomycin-resistant enterococcal bacteremia and a vancomycin resistant enterococcal and Eugenia infected right hip. The patient may have a possible right lower lobe pneumonia versus atelectasis. MEDICATIONS: The patient has been on daptomycin and fluconazole for 8 days and today is the second day of treatment with cefepime. PHYSICAL EXAMINATION: Vital Signs: Temperature is 100 degrees, pulse 112, respirations 25, blood pressure 91/60. General: This is an ill-appearing middle-aged male. He appears to be in a delirium. He often times starts yelling. Head, Eyes, Ears, Nose, and throat: No drainage is noted from the nose or ears. Neck: No meningismus. Lungs: Clear to auscultation. Cardiovascular: Heart rate is irregular. Abdomen: Soft and nontender. The patient has a Trialysis catheter in the right groin and in the right hip he has a large wound that has the VAC covering it. Extremities: Patient has a left [id number] amputation. The incision is intact. Neurologic: Patient is delirious, although he does have times when he did answer a question with yes or no. LAB AND X-RAY: There is no new x-ray. The CBC shows a white count of 12,300, hemoglobin 8, platelet count 220,000. Arterial blood gases show a pH of 7.42, PO2 of 42, pCO2 of 36. Creatinine is 3.9. GFR is 19. ASSESSMENT AND PLAN: Patient has a bacteremia and infected hip and possible pneumonia. For now, I am going to continue his current antibiotics. He does have elevation of his white count. Since it is not a big elevation I am going to hold off doing anything further. COMORBIDITIES: Include the patient is a diabetic. He is also an alcoholic. He has acute kidney injury, congestive heart failure and global encephalopathy. cc: Segun Coffey MD
[2018-09-22] MEDS: DIFLUCAN 200 MG/NS 200 MG/100 ML IVPB IV SCH (20:18)
[2018-09-22] MEDS: MAXIPIME 1 GM in NS 50 ML IV SCH (20:18)
[2018-09-23] MEDS: HUMULIN R SUBQ SCH ×5 (01:31→16:52)
[2018-09-23] MEDS: HEPARIN SUBQ SCH ×3 (04:52→21:34)
[2018-09-23] MEDS: SODIUM BICARBONATE 8.4% 100 MEQ in D5W 1,000 ML IV SCH (04:55)
[2018-09-23] MEDS: PROTONIX IV SCH (08:00)
[2018-09-23] MEDS: DILAUDID IV PRN (08:01)
[2018-09-23] MEDS: ELDERTONIC NG SCH (08:01)
[2018-09-23] MEDS: CULTURELLE NG SCH ×2 (08:01→21:35)
[2018-09-23 08:20] LABS: CALCIUM 7.8 mg/dL (8.8-10.2); CREATININE 3.7 mg/dL (0.7-1.2); POTASSIUM 3.3 mmol/L (3.5-5.1)
[2018-09-23 08:50] LABS: BASO# 0.04 X1000 (0.0-0.2); BASO% 0.3 % (0.0-0.8); EOS# 0.59 X1000 (0.0-0.7); EOS% 4.8 % (0.0-10.0); HEMATOCRIT 25.2 % (42.0-52.0); HEMOGLOBIN 7.6 g/dL (14.0-18.0); IMM GRAN# 0.03 X1000 (0.0-0.04); IMM GRAN% 0.2 % (0.0-0.5); LYMPH# 1.94 X1000 (1.2-3.4); LYMPH% 15.7 % (20.5-51.1); MCH 30.8 PG (27-31); MCHC 30.2 g/dL (33-37); MONO# 1.16 X1000 (0.11-0.59); MONO% 9.4 % (1.7-9.3); MPV 10.6 FL (7.4-10.4); NEUT# 8.61 X1000 (1.4-6.5); NEUT% 69.6 % (42.2-75.2); PLT 288 X1000 (130-400); RBC 2.47 XMIL (4.7-6.1); RDW 13.4 % (11.5-14.5); WBC 12.37 X1000 (4.8-10.8)
[2018-09-23] MEDS ORDERED: SODIUM PHOSPHATE 40 MMOL in NS 250 ML IV ONE (09:00)
[2018-09-23 09:26] LABS: ALLEN TEST YES; BE 5.5 mmoll (-3.0-3.0); BLOOD TYPE ARTERIAL; HCO3-(ACT) 29.2 mmoll (20.0-26.0); METHB 1.1 % (0.0-1.5); O2(CT) 11.9 mL/dL (15.0-23.0); O2HB 96.5 % (95.0-99.0); PCO2(98.6) 34 mmHg (35-45); PO2(98.6) 88 mmHg (60-100); SAMPLE BLOOD; SAO2 98.9 % (95.0-100.0); THB 8.7 g/dL (11.5-17.4); pH(98.6) 7.53 (7.35-7.45)
[2018-09-23 09:35] LABS: MODALITY CANNULA
[2018-09-23] MEDS: THIAMINE 100 MG in NS 50 ML IV SCH (13:25)
--- NOTE | 2018-09-23 14:19 | PROGRESS NOTE ---
DATE: 09/23/2018 SUBJECTIVE: This morning, Mr. Boyce refers to be doing fairly okay. He was being bathed when I saw him. Per the nursing staff, the night was uneventful. OBJECTIVE: This morning, Mr. Boyce's vital signs are blood pressure of 124/57 , pulse 102, respirations 18, temperature 98.7. General: Mr. Boyce is a 58-year-old gentleman. He is in bed. He is not in any cardiopulmonary distress. Mucosa is pink and moist. Anicteric and acyanotic. Neck is supple. Chest: Good air entry bilaterally. There are a few crackles posteriorly. No wheezing. No rhonchi. Cardiovascular: Regular rate and rhythm. Abdomen is soft, nontender. Bowel sounds present. Extremities: There is a right BKA. Left lower extremity is unremarkable. The Arredondo catheter was also in place. There was a right Vas- Cath. BRONZE CHASER: The patient is awake, alert and oriented to person, disoriented to place and time. The patient thinks that he knows me. He follows commands for the most part. There is a dressing over the right hip wound. DIAGNOSTIC DATA: WBC is 12.27, hemoglobin 7.6, platelet count 288. Sodium is 135, potassium 3.3, chloride 100, bicarb is 27, creatinine is 3.7. The patient was dialyzed yesterday. I's and O's show urine output was just 20. Dialysis ultrafiltrated 3000 yesterday. The patient is overall hospital stay positive balance for 5951. Subsequent blood cultures have all been negative. A chest x-ray yesterday showed stable findings. ASSESSMENT: 1. Septic shock on presentation, resolved. 2. Enterococcal faecium (VRE bacteremia). Subsequent blood cultures have been negative. 3. Acute kidney injury, no recovery. The patient is currently on standard hemodialysis 3000 mL was ultrafiltrated yesterday. The patient is really not making any urine, and he has had the Arredondo catheter in there for a very long time, so we are going to discontinue that. 4. Right hip wound infection. We will continue with wound care. 5. Questionable right lower lobe pneumonia. We will continue with the current antibiotics. 6. Altered mental status. I think this is multifactorial. The patient's mentation seems to be progressively getting better. He has been evaluated multiple times in the past by Neurology. 7. Nutritional support. The patient is on tube feedings. He seems to be more alert this morning, so we are waiting to see if we will be able to feed him. We will get him a full liquid diet this morning. If he tolerates that, we will gradually advance and then discontinue the NG tube. 8. We will also put in Physical Therapy to start working with Mr. Boyce. 9. I have discontinued his D5 with bicarb since his bicarb is 27 this morning. cc: Rashawn Hercules MD MTDD
--- NOTE | 2018-09-23 15:54 | NEPHROLOGY PROGRESS NOTE ---
DATE: 09/23/2018 SUBJECTIVE: He is on nasal cannula. He is talking to me and describing symptoms, but I do not understand what he is trying to ask me. No shortness of breath, nausea or vomiting. OBJECTIVE: Blood pressure is 129/80, heart rate 103, respirations 22, afebrile. General: No acute distress. Skin is warm and dry. Neck veins are not distended. Heart is regular. Lungs are equal, no crackles. Abdomen is soft. Extremities have no edema, clubbing or cyanosis. IMPRESSION: Acute kidney injury. No recovery thus far. He had dialysis yesterday. We will hold over the weekend. Electrolytes and acid base are in target. Anemia is below target but stable. cc: Dilip Carmona MD
[2018-09-23] MEDS ORDERED: CALMOSEPTINE OINTMENT TOP PRN (16:51)
[2018-09-23] MEDS: FOLIC ACID 1 MG in NS 50 ML IV SCH (16:53)
[2018-09-23] MEDS: STERILE WATER INJ. INJ PRN (18:41)
[2018-09-23] MEDS: GEODON IM PRN (18:41)
[2018-09-23] MEDS: ATIVAN IV PRN (20:08)
[2018-09-23] MEDS: DIFLUCAN 200 MG/NS 200 MG/100 ML IVPB IV SCH (21:34)
[2018-09-23] MEDS: MAXIPIME 1 GM in NS 50 ML IV SCH (21:35)
[2018-09-24] MEDS: HUMULIN R SUBQ SCH ×5 (00:55→15:46)
[2018-09-24 04:59] LABS: ALLEN TEST YES; BE 1.8 mmoll (-3.0-3.0); BLOOD TYPE ARTERIAL; HCO3-(ACT) 26.3 mmoll (20.0-26.0); O2(CT) 11.7 mL/dL (15.0-23.0); O2HB 92.8 % (95.0-99.0); PCO2(98.6) 42 mmHg (35-45); PO2(98.6) 60 mmHg (60-100); SAMPLE BLOOD; SAO2 96.5 % (95.0-100.0); THB 8.9 g/dL (11.5-17.4); pH(98.6) 7.41 (7.35-7.45)
[2018-09-24 05:01] LABS: MODALITY ROOM AIR
[2018-09-24] MEDS: HEPARIN SUBQ SCH ×3 (05:19→21:28)
[2018-09-24 05:31] LABS: BASO# 0.06 X1000 (0.0-0.2); BASO% 0.6 % (0.0-0.8); EOS# 0.64 X1000 (0.0-0.7); EOS% 6.5 % (0.0-10.0); HEMATOCRIT 24.5 % (42.0-52.0); HEMOGLOBIN 7.5 g/dL (14.0-18.0); IMM GRAN# 0.02 X1000 (0.0-0.04); IMM GRAN% 0.2 % (0.0-0.5); LYMPH# 2.11 X1000 (1.2-3.4); LYMPH% 21.5 % (20.5-51.1); MCH 31.1 PG (27-31); MCHC 30.6 g/dL (33-37); MCV 101.7 FL (81-99); MONO% 10.2 % (1.7-9.3); NEUT# 5.98 X1000 (1.4-6.5); PLT 367 X1000 (130-400); RBC 2.41 XMIL (4.7-6.1); RDW 13.6 % (11.5-14.5); WBC 9.81 X1000 (4.8-10.8)
[2018-09-24 05:41] LABS: CALCIUM 8.2 mg/dL (8.8-10.2); POTASSIUM 2.9 mmol/L (3.5-5.1)
[2018-09-24 05:51] LABS: CREATININE 5.3 mg/dL (0.7-1.2)
[2018-09-24] MEDS: CULTURELLE NG SCH ×2 (09:42→21:27)
[2018-09-24] MEDS: PROTONIX IV SCH (09:42)
[2018-09-24] MEDS: SODIUM CHLORIDE 0.9% INJ SCH (09:42)
[2018-09-24] MEDS: CUBICIN 600 MG in NS 100 ML IV SCH (09:42)
[2018-09-24] MEDS: ELDERTONIC NG SCH (09:43)
--- NOTE | 2018-09-24 10:43 | Diag Imaging Result Doc PS360 ---
EXAM: CHEST-1 VIEW - 09/24/2018 HISTORY: SOB TECHNIQUE: Portable chest COMPARISON: 09/22/2018 FINDINGS: The nasogastric tube has been removed. Heart size appears mildly enlarged. There are sternal wires from previous surgery again seen. There is chronic elevation right hemidiaphragm. There is some prominence of central vascular markings similar to prior. There is mild subsegmental atelectasis at the left base. There is no consolidation, substantial pleural effusion, or pneumothorax identified. IMPRESSION: Mild cardiomegaly and mild prominence of central vascular markings similar to prior. Chronic elevation of right hemidiaphragm, with mild right basilar subsegmental atelectasis. Electronically signed by Zoran Jane 09/24/2018 10:41 AM
[2018-09-24] MEDS: DILAUDID IV PRN ×2 (11:22→16:56)
[2018-09-24] MEDS: THIAMINE 100 MG in NS 50 ML IV SCH (12:43)
[2018-09-24] MEDS ORDERED: KLOR-CON PO ONE (13:07)
--- NOTE | 2018-09-24 13:19 | PROGRESS NOTE ---
DATE: 09/24/2018 SUBJECTIVE: The patient is resting comfortably in bed. Sensorium seems to be much better. OBJECTIVE: Vital Signs: Temperature 98 degrees, pulse 99, respiratory rate 22, blood pressure 150/66, oxygen saturation is 97%. HEENT: Atraumatic, normocephalic. Cardiovascular: S1, S2. Irregular. Abdomen: Soft, nontender. No masses felt. Extremities: Has left below-knee amputation. No edema in the right lower extremity. Central Nervous System: The patient is awake. Sensorium is much improved. IMAGING AND LABORATORY DATA: WBC is 9.81, hematocrit is 24.5, with a platelet count of 367,000. ABG 7.41/42/60/96.5. Sodium is 139, potassium 2.9, chloride is 101, bicarb is 24, BUN is 15, creatinine is 5.3. X-ray of the chest shows mild cardiomegaly with mild prominence of the central vascular markings, similar to prior. There is chronic elevation of the right hemidiaphragm, with mild right basilar subsegmental atelectasis. ASSESSMENT AND PLAN: 1. Acute respiratory failure. Maintain the patient on oxygen. Pulmonary Team following. 2. Vancomycin-resistant enterococcus bacteremia. Continue antibiotics as recommended. 3. Right hip ulcer. Continue local wound care. 4. Acute kidney injury. Follow up on renal function. Avoid nephrotoxic agents. Nephrology following. 5. Hypokalemia. Replace potassium cautiously in light of impaired renal function. 6. Encephalopathy, improving. 7. Diabetes mellitus. Continue blood sugar monitoring as well as sliding scale insulin. 8. Routine malnutrition. Will discontinue nasogastric feeding, and see if the patient can take orally after swallow evaluation. 9. Gastrointestinal prophylaxis. Proton pump inhibitor. 10. Deep vein thrombosis prophylaxis. Heparin. cc: Taiwo Camacho MD
[2018-09-24] MEDS: FOLIC ACID 1 MG in NS 50 ML IV SCH (16:53)
[2018-09-24] MEDS: DIFLUCAN 200 MG/NS 200 MG/100 ML IVPB IV SCH (20:11)
[2018-09-24] MEDS: MAXIPIME 1 GM in NS 50 ML IV SCH (21:28)
[2018-09-24] MEDS: ATIVAN IV PRN (21:28)
[2018-09-25] MEDS: GEODON IM PRN (00:02)
[2018-09-25] MEDS: HUMULIN R SUBQ SCH ×5 (02:01→20:07)
[2018-09-25 04:54] LABS: BASO# 0.06 X1000 (0.0-0.2); BASO% 0.6 % (0.0-0.8); EOS# 0.66 X1000 (0.0-0.7); EOS% 6.6 % (0.0-10.0); HEMATOCRIT 25.5 % (42.0-52.0); HEMOGLOBIN 7.6 g/dL (14.0-18.0); IMM GRAN# 0.04 X1000 (0.0-0.04); IMM GRAN% 0.4 % (0.0-0.5); LYMPH# 2.51 X1000 (1.2-3.4); MCH 29.7 PG (27-31); MCHC 29.8 g/dL (33-37); MCV 99.6 FL (81-99); MONO# 0.92 X1000 (0.11-0.59); MONO% 9.2 % (1.7-9.3); MPV 9.5 FL (7.4-10.4); NEUT# 5.84 X1000 (1.4-6.5); NEUT% 58.2 % (42.2-75.2); PLT 448 X1000 (130-400); RBC 2.56 XMIL (4.7-6.1); RDW 13.8 % (11.5-14.5); WBC 10.03 X1000 (4.8-10.8)
[2018-09-25 05:01] LABS: ALLEN TEST YES; BE -0.4 mmoll (-3.0-3.0); BLOOD TYPE ARTERIAL; HCO3-(ACT) 24.6 mmoll (20.0-26.0); O2(CT) 11.3 mL/dL (15.0-23.0); O2HB 96.7 % (95.0-99.0); PCO2(98.6) 38 mmHg (35-45); PO2(98.6) 116 mmHg (60-100); SAMPLE BLOOD; SAO2 99.4 % (95.0-100.0); THB 8.1 g/dL (11.5-17.4); pH(98.6) 7.41 (7.35-7.45)
[2018-09-25 05:03] LABS: MODALITY ROOM AIR
[2018-09-25 05:38] LABS: CALCIUM 8.8 mg/dL (8.8-10.2); CREATININE 6.8 mg/dL (0.7-1.2); POTASSIUM 3.7 mmol/L (3.5-5.1)
[2018-09-25] MEDS: HEPARIN SUBQ SCH ×3 (05:49→20:15)
[2018-09-25] MEDS ORDERED: TIGHT: 0.2 ML/HR FOR DIALYSIS MISC PRN (06:01)
[2018-09-25] MEDS ORDERED: HEPARIN IV PRN (06:01)
[2018-09-25] MEDS ORDERED: NS 2,000 ML MISC PRN (06:01)
--- NOTE | 2018-09-25 06:49 | NEPHROLOGY PROGRESS NOTE ---
DATE: 09/25/2018 SUBJECTIVE: He is awake and alert. He denies chest pain, shortness of breath, nausea, or vomiting. He remains somewhat confused. He asks me, " Is there a box out there to put me in?" OBJECTIVE: Vital Signs: Blood pressure 150/54, heart rate 86, respirations 23, afebrile. Intake 1.5 L. Output, none recorded. Physical Examination: General: No acute distress, on room air. Skin: Warm and dry. HEENT: Conjunctivae are pink. Neck: Neck veins are not distended. Heart: Regular. No gallops. Lungs: Equal. No crackles or rhonchi are present. Abdomen: Soft, nontender. Bowel sounds present. Extremities: With no edema, clubbing, or cyanosis. IMPRESSION AND PLAN: Acute kidney injury. No recovery. Minimal urine output. He will have hemodialysis today using a 3 K bath and a goal of 2 L ultrafiltration. Acid base and electrolytes are acceptable. cc: Dilip Carmona MD
--- NOTE | 2018-09-25 07:32 | Diag Imaging Result Doc PS360 ---
EXAM: CHEST-1 VIEW INDICATION: SOB TECHNIQUE: One view COMPARISON: 09/24/2018 FINDINGS: Mildly prominent central vascular markings are approximately stable. No new consolidation is identified. Cardiac silhouette is stable. IMPRESSION: Stable chest. Electronically signed by Anshul Connolly 09/25/2018 7:29 AM
[2018-09-25] MEDS: ELDERTONIC NG SCH (09:10)
[2018-09-25] MEDS: CULTURELLE NG SCH ×2 (09:10→20:15)
[2018-09-25] MEDS: SODIUM CHLORIDE 0.9% INJ SCH (09:11)
[2018-09-25] MEDS: PROTONIX IV SCH (09:11)
[2018-09-25] MEDS: ZOFRAN IV PRN (10:19)
--- NOTE | 2018-09-25 11:04 | GASTROENTEROLOGY PROGRESS NOTE ---
DATE: 09/25/2018 SUBJECTIVE: The patient is resting in bed. He is more awake and alert, and he is eating by mouth. The rectal tube is out. His NG tube is out. PHYSICAL EXAMINATION: Vital Signs: Temperature of 97.6, pulse rate of 86, respiratory rate of 14, blood pressure 150/54, saturating 92% on room air. General Appearance: Moderately built, moderately nourished, lying in bed, in no acute distress. HEENT: Pale conjunctivae. No icterus. Neck: Supple. Abdomen: Soft, nontender. No guarding or rebound. Extremities: No cyanosis, clubbing. He has a hip infection in the right hip. He is status post left below-knee amputation. Neurologic: Alert, awake, oriented x3. LABS: Hemoglobin and hematocrit are 7.6 and 25.5, white count of 10.03, platelet count of 448,000. ABG showing pH of 7.41, pCO2 38, PO2 116. This is on room air. Sodium 140, potassium 3.7, chloride 106, bicarb 22, anion gap 13, BUN of 22, creatinine of 6.8, glucose of 109, calcium is 8.8. Phosphorus was corrected yesterday at 3.7. His hepatitis C antibody was positive. PCR is still pending. ARAMIS is negative. His admission toxicology screen was positive for opioids, oxycodone, and benzodiazepines. Serum protein electrophoresis showed no monoclonal band. Blood culture done, last one on 09/20/2018 is negative after 5 days. IMPRESSION AND PLAN: 1. Malnutrition. His albumin was low. His nasogastric tube is now out. He has been put on a regular diet. I will start him on Nepro shakes. He is on a mechanical soft diet. Hopefully, that will help his albumin. 2. Anemia. Continue to watch for now and transfuse as needed. He will continue a multivitamin once daily. 3. Gastrointestinal prophylaxis. Proton pump inhibitors once daily. 4. Question of alcoholic liver disease and encephalopathy which is improved. He will continue on thiamine and a multivitamin. 5. Right hip infection. Continue local wound care. 6. Vancomycin-resistant Enterococcus bacteremia. He is on antibiotics. 7. Acute respiratory failure, is improved. 8. Encephalopathy, improved. 9. Diabetes mellitus, on sliding scale insulin. 10. Deep venous thrombosis prophylaxis with heparin. 11. The above plan was discussed with the patient and the nursing staff, and all questions were answered. cc: MD Taiwo Knight MD
--- NOTE | 2018-09-25 11:19 | PROGRESS NOTE ---
DATE: 09/25/2018 SUBJECTIVE: The patient is resting in bed. OBJECTIVE: Vital Signs: Temperature 97.7 degrees, pulse 86, respiratory rate 18, blood pressure 130/70, oxygen saturation 98%. HEENT: Atraumatic, normocephalic. Cardiovascular: S1, S2. Respiratory: Has evidence of good air entry bilaterally. Abdomen: Soft, nontender. No masses felt. Extremities: Has left below-knee amputation. Central Nervous System: The patient is awake. Sensorium much improved. The patient is still confused. IMAGING AND LABORATORY DATA: WBC is 10.03, hematocrit 25.5 with a platelet count of 448,000. ABG 7.41/88/116/99.4. Chemistry: Sodium 141, potassium 3.7, chloride 106, bicarb is 22, BUN is 22, creatinine 6.8. X-ray of the chest shows mild prominent central vascular markings. No new consolidation. ASSESSMENT AND PLAN: 1. Acute respiratory failure. Maintain the patient on oxygen. Follow up on the patient's respiratory status. Pulmonary team on board. 2. Vancomycin-resistant enterococcus bacteremia. Continue antibiotics as recommended by Infectious Disease. 3. Right hip ulcer. Continue local wound care. 4. Acute kidney injury. Follow up on renal function. Avoid nephrotoxic agents. Nephrology following. 5. Encephalopathy, improving. Use wrist restraints or antipsychotic for agitation if needed. 6. Diabetes mellitus. Continue blood sugar monitoring as well as sliding scale insulin. 7. Gastrointestinal prophylaxis. Proton pump inhibitor. 8. Deep vein thrombosis prophylaxis. Heparin. 9. Disposition. The patient can be transferred to step-down unit. cc: Taiwo Camacho MD MTDD
[2018-09-25] MEDS: DILAUDID IV PRN ×2 (12:49→22:14)
[2018-09-25] MEDS: THIAMINE 100 MG in NS 50 ML IV SCH (13:18)
[2018-09-25] MEDS: ATIVAN IV PRN ×2 (16:59→21:38)
[2018-09-25] MEDS: FOLIC ACID 1 MG in NS 50 ML IV SCH (18:18)
--- NOTE | 2018-09-25 19:46 | INFECTIOUS DISEASE PROGRESS NO ---
DATE: 10/05/2018 PRESENT ILLNESS: Patient has a vancomycin-resistant enterococcal bacteremia and a vancomycin- resistant enterococcal and Eugenia infected right hip where the patient had necrotizing fasciitis. The patient possibly could have right lower lobe pneumonia versus atelectasis although it appears based on chest x-ray today that the patient just has vascular congestion rather than infiltrates like pneumonia. MEDICATION: The patient is on the 11th day of treatment with daptomycin and fluconazole and he is on day 5 of treatment with cefepime. PHYSICAL EXAMINATION: Vital Signs: Temperature is 98 degrees, pulse 91, respirations 16, blood pressure 116/64. General: This is a ill-appearing middle-aged male. He is in no acute distress. He is talking tonight and coherent. Head/eyes/ears/nose/throat: He does not have any drainage from the nose or ears. I did not see any white patches on his tongue. Neck: No stiffness. Lungs: Clear to auscultation. Cardiovascular: Heart rate is irregular. Abdomen: Soft and nontender. In the right groin the patient has a Trialysis catheter present and in the right hip he has a VAC present covering the large hip wound. The patient has a left [id number] amputation for which the incision is intact. Neurologic: Patient seems to be much better. He is talkative and not delirious. LAB AND X-RAY: Chest x-ray shows pulmonary congestion but no infiltrate. CBC shows a white count of 10,030, hemoglobin 7.6, and platelet count 448,000. Creatinine is 6.8. GFR is 10. Blood gases show a pH of 7.41, a PO2 of 116 and a pCO2 of 38. ASSESSMENT AND PLAN: The patient has bacteremia and infected hip and possible pneumonia. As regarding the pneumonia, I think that is not present and because of that I am going to discontinue cefepime. As far as the patient's vancomycin resistant bacteremia and the vancomycin resistant enterococcal and Eugenia infected right hip, I plan to treat with the antibiotics for approximately 4 more days and then stop them. COMORBIDITIES: He has diabetes mellitus. He is an alcoholic. He had acute kidney injury. He has congestive heart failure and global encephalopathy. cc: Segun Coffey MD
[2018-09-25] MEDS: DIFLUCAN 200 MG/NS 200 MG/100 ML IVPB IV SCH (20:16)
[2018-09-26] MEDS: GEODON IM PRN (00:19)
[2018-09-26] MEDS: ATIVAN IV PRN (01:48)
[2018-09-26] MEDS: HEPARIN SUBQ SCH ×3 (04:27→20:53)
[2018-09-26 04:48] LABS: ALLEN TEST YES; BE 2.5 mmoll (-3.0-3.0); BLOOD TYPE ARTERIAL; HCO3-(ACT) 26.9 mmoll (20.0-26.0); METHB 1.4 % (0.0-1.5); O2(CT) 9.8 mL/dL (15.0-23.0); O2HB 94.4 % (95.0-99.0); PCO2(98.6) 42 mmHg (35-45); PO2(98.6) 74 mmHg (60-100); SAMPLE BLOOD; SAO2 99.6 % (95.0-100.0); THB 7.3 g/dL (11.5-17.4); pH(98.6) 7.42 (7.35-7.45)
[2018-09-26 04:49] LABS: MODALITY ROOM AIR
[2018-09-26 05:39] LABS: BASO# 0.06 X1000 (0.0-0.2); BASO% 0.6 % (0.0-0.8); EOS% 6.4 % (0.0-10.0); HEMATOCRIT 23.2 % (42.0-52.0); HEMOGLOBIN 7.1 g/dL (14.0-18.0); IMM GRAN# 0.04 X1000 (0.0-0.04); IMM GRAN% 0.4 % (0.0-0.5); LYMPH# 2.49 X1000 (1.2-3.4); LYMPH% 26.6 % (20.5-51.1); MCH 31.1 PG (27-31); MCHC 30.6 g/dL (33-37); MCV 101.8 FL (81-99); MONO# 1.06 X1000 (0.11-0.59); MONO% 11.3 % (1.7-9.3); MPV 9.4 FL (7.4-10.4); NEUT# 5.11 X1000 (1.4-6.5); NEUT% 54.7 % (42.2-75.2); PLT 401 X1000 (130-400); RBC 2.28 XMIL (4.7-6.1); RDW 13.6 % (11.5-14.5); WBC 9.36 X1000 (4.8-10.8)
[2018-09-26 05:43] LABS: CALCIUM 8.4 mg/dL (8.8-10.2); POTASSIUM 3.2 mmol/L (3.5-5.1)
[2018-09-26 05:48] LABS: CREATININE 5.4 mg/dL (0.7-1.2)
[2018-09-26] MEDS: HUMULIN R SUBQ SCH ×4 (06:25→22:20)
--- NOTE | 2018-09-26 06:32 | Diag Imaging Result Doc PS360 ---
EXAM: CHEST-1 VIEW HISTORY: SOB TECHNIQUE: Chest single view COMPARISON: 09/25/2018 FINDINGS: Poor inspiratory effort. Sternal wires are present. The heart is borderline mildly prominent. No consolidation. No pleural effusions identified. Mild central vascular prominence similar to the prior study. IMPRESSION: Stable chest. Electronically signed by Mingo Fox 09/26/2018 6:28 AM
[2018-09-26] MEDS: CULTURELLE NG SCH ×2 (08:45→20:53)
[2018-09-26] MEDS: CUBICIN 600 MG in NS 100 ML IV SCH (08:45)
[2018-09-26] MEDS: SODIUM CHLORIDE 0.9% INJ SCH (08:46)
[2018-09-26] MEDS: PROTONIX IV SCH (08:46)
--- NOTE | 2018-09-26 09:53 | NEPHROLOGY PROGRESS NOTE ---
DATE: 09/26/2018 TIME SEEN: 0635 SUBJECTIVE: Mr. Boyce is awake. He is resting quietly. He remains in a 4- point restraint. VITAL SIGNS: Most recent vital signs show patient's last temperature 97.4 degrees, blood pressure 123/62, heart rate 80, respirations 20. The patient is on room air. Last recorded saturation is 97%. He has had 1250 in. He has had 2 mL out documented per Arredondo. LABORATORY DATA: Sodium 140, potassium 3.2, chloride 103, CO2 26, BUN 15, creatinine 5.4, glucose 107, anion gap 11, calcium 8.4. White count 9.36, hemoglobin 7.1, hematocrit 23.2, platelet count 401,000. ABGs: pH 7.42, CO2 42, PO2 74, bicarb 26.9 with a lactate of 0.8 on room air. PHYSICAL EXAMINATION: General: This is a 58-year-old male currently resting quietly in bed. He has no appearance of shortness of breath. He remains confused and opens his eyes randomly. HEENT: Normocephalic, atraumatic. Conjunctivae pale. He has JESSIKA. Mucous membranes are dry. Neck: Supple. Trachea midline. No evidence of JVD. Cardiovascular: Regular rate and rhythm. No gallop appreciated. Lungs: Clear to auscultation anteriorly. Equal excursion. He is now on room air. Abdomen: Slightly distended, but positive bowel sounds. Genitourinary: Not inspected. Arredondo catheter is in place. Extremities: No edema. No clubbing or cyanosis. These remain in 4-point restraint. Neurological: As mentioned above. ASSESSMENT AND PLAN: 1. Acute kidney injury. No recovery. The patient had dialysis yesterday. No indications for intervention today. We will plan for dialysis in the morning. 2. Altered mental status. This is followed by primary care. He does remain in 4-point restraint with medication. I would like to thank you for allowing us to follow with this patient. Dictated by ANGEL Mcgrath for Dilip Carmona MD Face to face encounter, data reviewed, discussed with Eleanor Valdez on 09/26/18. I agree with the above assessment and plan of care. cc: ANGEL Mcgrath MD [facility]
--- NOTE | 2018-09-26 12:08 | INFECTIOUS DISEASE PROGRESS NO ---
DATE: 09/26/2018 PRESENT ILLNESS: The patient has a vancomycin-resistant enterococcal bacteremia and a vancomycin- resistant enterococcal and Eugenia infected right hip where the patient had necrotizing fasciitis. The patient the patient's most recent x-ray shows no evidence of pneumonia. MEDICATIONS: This is the 12th day of treatment with daptomycin and fluconazole and day 6 of treatment with cefepime. PHYSICAL EXAMINATION: Vital signs: Temperature is 98 degrees, pulse 95, respirations 15, blood pressure 123/66. General: This is a somewhat ill-appearing, middle-aged male. He has been much more combative, but now he seems to have settled down quite a bit. Head/eyes/ears/nose/throat: He can hear my spoken words and see near objects. He does not have any white patches on his tongue. Neck: No stiffness. Lungs: Clear to auscultation. Cardiovascular: Heart rate is irregular. I did not hear a murmur. Abdomen: Soft and nontender. In the patient's right groin, he has a Trialysis catheter in place. The site is not swollen or draining. LABORATORY AND X-RAY: Chest x-ray shows no consolidations. CBC shows a white count of 9360, hemoglobin 7.1, platelet count 401,000. Blood gases show a pH of 7.42, PO2 of 74, pCO2 of 42. Creatinine is 5.4. GFR is 13. CK is 50. ASSESSMENT AND PLAN: 1. The patient has bacteremia and infected hip wound. For that, I plan on continuing daptomycin and fluconazole for approximately 3 more days. The patient does not have pneumonia and I plan to discontinue cefepime. 2. Comorbidities: Diabetes mellitus, alcoholism, acute kidney injury, congestive heart failure, and global encephalopathy. cc: Segun Coffey MD
[2018-09-26] MEDS: VITAMIN B-1 PO SCH (12:39)
--- NOTE | 2018-09-26 12:43 | PROGRESS NOTE ---
DATE: 09/26/2018 SUBJECTIVE: The patient answers questions but he is very agitated. Apparently, he has been this way for months. OBJECTIVE: Vital Signs: Blood pressure is 123/66, heart rate of 95, respiratory rate of 15, temperature 97.2 degrees. Cardiovascular: Regular rate and rhythm. Pulmonary: Bilateral breath sounds clear to auscultation. GI: Soft, nontender, nondistended. Bowel sounds were positive. Extremity Examination: No clubbing or cyanosis. Lymphatic Examination: No peripheral edema. Neurological: Examination was nonfocal. He is in restraints. Laboratory Data: White count is 9, hemoglobin and hematocrit down to 7 and 23, platelets 401,000. PH 7.42, pCO2 42, PaO2 74. Potassium 3.2, creatinine 5.4. PROBLEM LIST: 1. Acute respiratory failure. He is on room air, I think that is accurate. He seems to be doing okay. I am not sure if he still needs daily arterial blood gases. I think we have stopped those. 2. Vancomycin-resistant enterococcus bacteremia. He is on daptomycin per Dr. Coffey. I think the last note says he is going to continue it for 3 more days. 3. Left hip wound with silas. He is on fluconazole for another [address] Coffey's help. 4. Acute kidney injury, acute tubular necrosis. He is on dialysis. Nephrology is following. 5. Persistent encephalopathy. Apparently, he has been this way for months. I do not really have a clear etiology. Neurology has seen him. The problem is, he is in restraints. It is going to be difficult to transition him to another level of care if he is persistently in restraints. He is only on Ativan. He is getting thiamine intravenous which probably could switch that to oral. I am going to start some Seroquel at night and see how he does. Presumably, this is an alcohol related either dementia or Korsakoff's kind of process, maybe thiamine related as well, which is a similar issue. He is going to be too difficult to handle at [place] at this point so it is going to be a difficult situation there but we do need to work on transitioning him off restraints if we are going to look at going home or placement, or something to that effect. 6. Anemia, has progressed somewhat. We will analyze it in the morning and see how he does. He is close to requiring a transfusion. His B12 is normal. Folate was low, which we are not supplementing. I cannot see that we have done iron studies so we will check those as well and follow closely. cc: Victoriano Ayers MD
--- NOTE | 2018-09-26 13:51 | PROVIDER PROGRESS NOTE ---
Progress Note - - SUBJECTIVE: No acute overnight events. Afebrile. No N/V. He reports "some" SOB, CP, abdominal pain. +BMs. Reports pain left hip. Tolerating diet. Remains restrained as patient gets agitated and pulls line when taken off. He also has been noted to be hallucinating. OBJECTIVE: GEN: awake, alert, NAD HEENT: anicteric, MMM NECK: no jvd/lad PULM: CTAB anteriorly ABD: soft NT/ND, NABS EXT: no cce in RLE, BKA on left NEURO: nonfocal LABS: 09/26/18 09/26/18 04:30 04:30 WBC 9.36 Hgb 7.1 L MCV 101.8 H Plt Count 401 H Sodium 140 Potassium 3.2 L Chloride 103 Carbon Dioxide 26 BUN 15 Creatinine 5.4 H Glucose 107 H IMAGING: EXAM: CHEST-1 VIEW HISTORY: SOB TECHNIQUE: Chest single view COMPARISON: 09/25/2018 FINDINGS: Poor inspiratory effort. Sternal wires are present. The heart is borderline mildlyprominent. No consolidation. No pleural effusions identified. Mild central vascular prominence similar to the prior study. IMPRESSION: Stable chest. A/P: Mr. Charly Boyce is a 58 year old man with history of IDDM2, CHF, CKD, CAD, chronic HCV, chronic anemia, and h/o right hip necrotizing fasciitis s/p debridement who presented on from rehab with AMS found to have severe metabolic acidosis from DKA, SPENSER now on HD, and E faecium bacteremia from wound infection. GI consulted to evaluate for possible hepatic encephalopathy although patient does not have cirrhosis. His abnormal LFTs show intrahepatic cholestasis likely in the setting of infection, HCV, and fatty liver. He is slowly improving; particularly his mental status. He has moderate protein calorie malnutrition and is tolerating diet. #Hypoxic respiratory failure: improving; on supplement O2; CXR with resolution of infiltrate #AMS: improving; multifactorial; patient may have underlying undiagnosed psych disorder #Abdominal pain: benign exam; prior imaging unrevealing; continue PPI #Anemia: folate deficient; continue folic acid: stable; transfuse as needed to maintain hgb 7-8 #DM2: on SSI #SPENSER on CKD: on HD as per renal #Malnutrition: on nepro shakes, diabetic diet ##Wound infection/bacteremia: on abx per ID #Chronic hepatitis C: previously treated Will sign off. Please call with questions or concerns.
[2018-09-26] MEDS ORDERED: SEROQUEL PO SCH (21:00)
[2018-09-26] MEDS: DIFLUCAN 200 MG/NS 200 MG/100 ML IVPB IV SCH (22:28)
[2018-09-27] MEDS: HEPARIN SUBQ SCH ×2 (05:50→17:30)
[2018-09-27] MEDS ORDERED: NS 2,000 ML MISC PRN (06:19)
[2018-09-27] MEDS ORDERED: TIGHT: 0.2 ML/HR FOR DIALYSIS MISC PRN (06:19)
[2018-09-27] MEDS ORDERED: HEPARIN IV PRN (06:19)
[2018-09-27 06:28] LABS: POTASSIUM 3.3 mmol/L (3.5-5.1)
[2018-09-27 06:30] LABS: BASO# 0.06 X1000 (0.0-0.2); BASO% 0.5 % (0.0-0.8); EOS# 0.59 X1000 (0.0-0.7); EOS% 4.9 % (0.0-10.0); HEMATOCRIT 26.9 % (42.0-52.0); HEMOGLOBIN 8.1 g/dL (14.0-18.0); IMM GRAN# 0.05 X1000 (0.0-0.04); IMM GRAN% 0.4 % (0.0-0.5); LYMPH# 2.57 X1000 (1.2-3.4); LYMPH% 21.3 % (20.5-51.1); MCH 30.6 PG (27-31); MCHC 30.1 g/dL (33-37); MCV 101.5 FL (81-99); MONO# 1.04 X1000 (0.11-0.59); MONO% 8.6 % (1.7-9.3); MPV 9.1 FL (7.4-10.4); NEUT# 7.76 X1000 (1.4-6.5); NEUT% 64.3 % (42.2-75.2); PLT 505 X1000 (130-400); RBC 2.65 XMIL (4.7-6.1); RDW 13.5 % (11.5-14.5); WBC 12.07 X1000 (4.8-10.8)
[2018-09-27 06:32] LABS: CREATININE 7.3 mg/dL (0.7-1.2)
[2018-09-27] MEDS: HUMULIN R SUBQ SCH ×4 (06:49→21:23)
[2018-09-27] MEDS: PROTONIX IV SCH (08:34)
[2018-09-27] MEDS: ATIVAN IV PRN ×3 (08:34→20:58)
[2018-09-27] MEDS: CULTURELLE NG SCH ×2 (08:35→20:17)
[2018-09-27] MEDS: SODIUM CHLORIDE 0.9% INJ SCH (08:35)
[2018-09-27] MEDS: FOLIC ACID PO SCH (08:35)
[2018-09-27] MEDS: VITAMIN B-1 PO SCH (08:35)
[2018-09-27] MEDS: DILAUDID IV PRN (11:29)
--- NOTE | 2018-09-27 14:22 | NEPHROLOGY PROGRESS NOTE ---
DATE: 09/27/2018 DATE AND TIME: Date seen 09/27/2018; time seen 0755. SUBJECTIVE: Mr. Boyce is resting quietly in bed. He states that he has no complaints. No chest pain. No increased work of breathing. OBJECTIVE: Vital Signs: Temperature 98.3, blood pressure 137/64, heart rate 72 , respirations 18. He is on room air. Last recorded saturation 99%. He has had 440 in; he has had 0 recorded out with need for dialysis. LABS: Sodium is 143, potassium 3.3, chloride 103, CO2 23, BUN 21, creatinine 7.3, glucose is 98. The patient has an anion gap of 17. Calcium of 9. He has an ammonia level of 37. White count 12.07, hemoglobin 8.1, hematocrit 26.9, with a platelet count of 505,000. PHYSICAL EXAMINATION: General: This is a 58-year-old male. He is resting quietly in bed. He is restrained to right ankle, left wrist. He has his alarm on in his bed. He remains confused. HEENT: Normocephalic, atraumatic. Conjunctiva is pale. He has JESSIKA. Mucous membranes are dry. Neck: Supple. Trachea midline. No evidence of JVD. Cardiovascular: Regular rate and rhythm. No murmur or gallop appreciated. Lungs: Clear to auscultation anterior. Equal excursion on room air. Abdomen: Slightly distended. Positive bowel sounds. Genitourinary: Not inspected. Arredondo catheter is in place. Extremities: Have no edema, no clubbing or cyanosis. He does remain in a 2-point restraint, one to right foot and left wrist. Neurologic: Patient remains confused. He is alert to person only. ASSESSMENT AND PLAN: 1. Acute kidney injury. Patient has had no recovery. We will plan for hemodialysis today. He is to be placed on a 3K bath, dialyze for 3.5 hours. We will attempt to pull patient to 2 L ultrafiltration. 2. Electrolytes and acid-base balance. These remain acceptable with correction on dialysis. 3. Anemia. Previous hemoglobin of 7.1, now up to 8.1 after 1 unit of packed red blood cells. 4. Metabolic encephalopathy, unsure of the cause. Dr. Murray is on the case. The patient remains confused. He remains restrained. I would like to thank you for allowing us to follow with this patient. Dictated by ANGEL Mcgrath for Dilip Carmona MD Face to face encounter, data reviewed, discussed with Eleanor Valdez on 09/27/18. I agree with the above assessment and plan of care. cc: ANGEL Mcgrath MD [facility]
--- NOTE | 2018-09-27 18:30 | INFECTIOUS DISEASE PROGRESS NO ---
DATE: 09/27/2018 PRESENT ILLNESS: The patient has a vancomycin-resistant enterococcal bacteremia and a vancomycin- resistant enterococcal and Eugenia infected right hip where he had necrotizing fasciitis. MEDICATIONS: This is the 13th day of treatment with daptomycin and fluconazole and the 7th day of treatment with cefepime. The patient was on cefepime but that was discontinued yesterday. PHYSICAL EXAMINATION: Vital Signs: Temperature is 97.9 degrees, pulse 98, respirations 20, blood pressure 133/65. General: This is an ill-appearing, middle-aged male. He still seems somewhat delirious. Head, eyes, ears, nose, and throat: He can hear my spoken words and he can see near objects. He does not have any white patches on his tongue. Neck: No meningismus. Lungs: Clear to auscultation. Cardiovascular: Heart rate is irregular. Abdomen: Soft and nontender. Extremities: On the right hip the patient has the VAC in place. In the right groin, the patient has a Trialysis catheter. The catheter site is not swollen or draining. Neurologic: Patient kind of thrashes around in bed a little bit. He sometimes makes sense when he talks and other times he does not. LABORATORY STUDIES: The patient's CBC shows a white count of 12,070, hemoglobin 8.1, and platelet count 505,000. The creatinine is 7.3. The GFR is 9. The patient's CK is 50. There is no new radiographic study today. ASSESSMENT AND PLAN: The patient has bacteremia and infected hip. Both of these are doing very well. The patient's white count, however, is up a little bit. My plan now is to continue the antimicrobial agents, namely daptomycin and fluconazole, and repeat the patient's CBC. If the white count is normal or trending normal, then I will go ahead and stop the patient's antimicrobial agents. COMORBIDITIES: Diabetes mellitus, alcoholism, acute kidney injury, congestive heart failure, and global encephalopathy. cc: Segun Coffey MD
--- NOTE | 2018-09-27 19:13 | PROGRESS NOTE ---
DATE: 09/27/2018 SUBJECTIVE: Patient has no focal complaints. Seems to be doing better. We will probably discharge him soon. We are working towards a discharge plan. No major complaints. OBJECTIVE: Vital Signs: Blood pressure 105/57, heart rate of 100, respiratory rate 20, temperature 97.8. Cardiovascular: Regular rate and rhythm. Pulmonary: Bilateral breath sounds. Clear to auscultation. GI: Soft, nontender, nondistended. Bowel sounds are positive. LABORATORY DATA: White count is 12, hemoglobin and hematocrit 8 and 26, platelets 505. Potassium 3.3. PROBLEM LIST: 1. Acute on chronic respiratory failure. Seems to be stable. 2. Vancomycin-resistant enterococcus bacteremia. He is on daptomycin I think for 3 more days. I am going to see Dr. Coffey's note. 3. Acute kidney injury secondary to acute tubular necrosis, currently on renal replacement therapy, dialysis. Nephrology is following. We will continue to monitor per their note. Continue to do that. 4. Metabolic encephalopathy. Not really clear what his mechanism is. I did start some Seroquel, which I think I am going to increase just to see if we can try to get him out of restraints safely. He has a dialysis catheter. He has a wound VAC, so we have to be very careful. He seems fairly manageable, but he is still in restraints which will make things a bit difficult as far as long-term placement. cc: Victoriano Ayers MD
[2018-09-27] MEDS: DIFLUCAN 200 MG/NS 200 MG/100 ML IVPB IV SCH (20:17)
[2018-09-27] MEDS: SEROQUEL PO SCH (20:18)
[2018-09-28] MEDS: HEPARIN SUBQ SCH ×3 (01:22→21:44)
[2018-09-28] MEDS: HUMULIN R SUBQ SCH ×4 (06:39→21:45)
[2018-09-28 06:53] LABS: BASO# 0.07 X1000 (0.0-0.2); BASO% 0.6 % (0.0-0.8); EOS# 0.52 X1000 (0.0-0.7); EOS% 4.2 % (0.0-10.0); HEMATOCRIT 28.2 % (42.0-52.0); HEMOGLOBIN 8.7 g/dL (14.0-18.0); IMM GRAN# 0.07 X1000 (0.0-0.04); IMM GRAN% 0.6 % (0.0-0.5); LYMPH# 2.99 X1000 (1.2-3.4); LYMPH% 24.4 % (20.5-51.1); MCH 31.4 PG (27-31); MCHC 30.9 g/dL (33-37); MCV 101.8 FL (81-99); MONO# 1.31 X1000 (0.11-0.59); MONO% 10.7 % (1.7-9.3); MPV 9.1 FL (7.4-10.4); NEUT# 7.29 X1000 (1.4-6.5); NEUT% 59.5 % (42.2-75.2); PLT 442 X1000 (130-400); RBC 2.77 XMIL (4.7-6.1); RDW 13.7 % (11.5-14.5); WBC 12.25 X1000 (4.8-10.8)
[2018-09-28 07:06] LABS: CALCIUM 9.3 mg/dL (8.8-10.2); POTASSIUM 3.6 mmol/L (3.5-5.1)
[2018-09-28 07:07] LABS: CREATININE 5.4 mg/dL (0.7-1.2)
[2018-09-28] MEDS: FOLIC ACID PO SCH (09:44)
[2018-09-28] MEDS: CUBICIN 600 MG in NS 100 ML IV SCH (09:44)
[2018-09-28] MEDS: VITAMIN B-1 PO SCH (09:44)
[2018-09-28] MEDS: CULTURELLE NG SCH ×2 (09:44→21:44)
[2018-09-28] MEDS: SODIUM CHLORIDE 0.9% INJ SCH (09:45)
[2018-09-28] MEDS: PROTONIX IV SCH (09:45)
[2018-09-28] MEDS: DILAUDID IV PRN (10:54)
--- NOTE | 2018-09-28 12:27 | GASTROENTEROLOGY PROGRESS NOTE ---
DATE: 09/28/2018 SUBJECTIVE: The patient is resting in bed. He is feeling better. He is more awake and interactive. He denies any nausea or vomiting. He is eating better. Denies any fevers, rigors, or chills. He is moving his bowels which are described as liquid brown. PHYSICAL EXAMINATION: Vital Signs: Temperature of 98.5 degrees, pulse rate of 99, respiratory rate of 18, blood pressure 126/75, saturating 98% on room air. General Appearance: He is moderately built, moderately nourished, lying in bed, in no acute distress. HEENT: Pale conjunctivae. No icterus. Neck: Supple. Abdomen: Soft, nontender, nondistended. No guarding or rebound. Extremities: No cyanosis or clubbing. He is status post left below-knee amputation and he also has a VAC at the right hip for right hip infection. Neurologic: He is alert, awake, and oriented x3. LABS: Hemoglobin and hematocrit are 8.7 and 28.2, white count of 12.25, platelet count of 442,000. Sodium of 140, potassium 3.6, chloride 103, bicarb of 39, anion gap 11, BUN of 15, creatinine 5.4, glucose of 103, calcium is 9.3. Blood culture x2 negative 5 days from 09/20/2018. ASSESSMENT AND PLAN: 1. Acute on chronic respiratory failure has improved. He is now down to room air. 2. Acute renal failure secondary to acute tubular necrosis. He is on dialysis per Dr. Carmona. 3. Vancomycin-resistant Enterococcus bacteremia. He is on daptomycin. 4. Right hip infection. He is on antibiotics with Dr. Coffey. 5. Metabolic encephalopathy. He is improved. We suspect it could be secondary to chronic alcohol abuse. The patient admits to drinking heavily. I spoke to him in detail today. We will continue on a multivitamin. He likely had a prolonged withdrawal. 6. Anemia. Continue to watch for now and keep him on iron C twice a day. 7. Alcoholism. He will continue on B1 once daily. 8. Gastrointestinal prophylaxis with Protonix once daily. 9. Bowel regimen. The patient is now having spontaneous bowel movements. 10. We will keep him on Culturelle 1 capsule twice a day. 11. Diabetes, on sliding scale insulin. 12. Deep venous thrombosis prophylaxis with heparin 5000 units every 8 hours. 13. The above plan was discussed with the patient. All questions were answered. cc: MD Kadeem Knight MD
--- NOTE | 2018-09-28 15:14 | NEPHROLOGY PROGRESS NOTE ---
DATE: 09/28/2018 TIME SEEN: 0708. SUBJECTIVE: Mr. Boyce is resting quietly in bed. Head of the bed is elevated. He has no complaints. OBJECTIVE: His most recent vital signs: Last temperature from the evening before is temperature 98.9 degrees, blood pressure 103/53, heart rate 100, respirations are 22, on room air last recorded saturation is 100%. Intake and output: He has had 0 recorded in, 1835 out on dialysis. Laboratory Data: Sodium is 144, potassium 3.6, chloride 103, CO2 of 30, BUN 15 , creatinine 5.4, glucose 103, anion gap of 11, calcium 9.3. White count 12.25, hemoglobin 8.7, hematocrit 28.2, with a platelet count of 442,000. PHYSICAL EXAMINATION: General: This is a 58-year-old male. He is currently resting quietly in bed, in no acute distress. Skin: Warm and dry. HEENT: Normocephalic, atraumatic. Conjunctiva pale. He has JESSIKA. Mucous membranes are dry. Neck: Supple. Trachea midline. No JVD. Cardiovascular: He has regular rate and rhythm. He is without murmur or gallop. Lungs: Clear to auscultation anteriorly. Equal excursion on O2. Abdomen: Soft, nontender. Positive bowel sounds. Genitourinary: Not inspected. He has very minimal void with dialysis assist. Extremities: Have no edema no clubbing or cyanosis. He does have a left BKA. Neurological: He remains in a 3-point restraint. He remains confused. ASSESSMENT AND PLAN: 1. Acute kidney injury. Patient has had no recovery, requiring hemodialysis on a Tuesday, Tuesday, Tuesday basis. We will plan for dialysis in the a.m. 2. Electrolytes and acid-base balance. These remain stable with correction on dialysis. 3. Anemia. This does remain low. Patient received a unit of packed red blood cells, now hemoglobin up to 8.7. 4. Altered mental status. This continues to be followed and monitored by the primary care team. I would like to thank you for allowing us to follow with this patient. Dictated by ANGEL Mcgrath for Dilip Carmona MD Face to face encounter, data reviewed, discussed with Eleanor Valdez on 09/28/18. I agree with the above assessment and plan of care. cc: ANGEL Mcgrath MD MTDD
--- NOTE | 2018-09-28 16:43 | EKG Report ---
Test Performed on : 09/28/2018 4:32:48 PM Test Reason : Irregular heart rhythm Blood Pressure : / mmHG Vent. Rate : 088 BPM Atrial Rate : 088 BPM P-R Int : 144 ms QRS Dur : 076 ms QT Int : 434 ms P-R-T Axes : 028 051 094 degrees QTc Int : 525 ms Sinus rhythm. with premature atrial complexes. with aberrant conduction. Left ventricular hypertrophy with repolarization abnormality Prolonged QT Abnormal ECG No previous ECGs available Confirmed by Gregorio Pendleton MD ([id number]) on 09/28/2018 9:30:07 PM
--- NOTE | 2018-09-28 16:52 | PROGRESS NOTE ---
DATE: 09/28/2018 INTERVAL HISTORY: No acute overnight events. He had received a dose of hydromorphone in the morning time by the time I had my encounter. SUBJECTIVE: He is very drowsy. He does not appear in any acute distress. He follows commands intermittently, but appears very confused; however, not agitated. OBJECTIVE: Vital Signs: Temperature 98.4 degrees, pulse 101, respiratory rate 16, blood pressure 115/61, saturating 100% on room air. General: Does not appear in any acute distress, HEENT: Oral cavity is moist. Lungs: Air entry bilaterally equal. No wheeze, rhonchi or crackles. Cardiovascular: S1, S2 normal. Appears irregular. No murmur, rub or gallop. Abdomen: Soft and nontender. Lower Extremities: He had right groin central venous catheter. He also had a right hip wound VAC. He has left below-knee amputation. LABORATORY DATA: Labs suggestive of mild leukocytosis, microcytic anemia, thrombocytosis. Normal electrolytes with elevated creatinine suggestive of likely end-stage renal disease. Microbiology: No new blood culture data. ASSESSMENT AND PLAN: 1. Vancomycin-resistant enterococcal faecium group D septic shock on presentation from right hip infection. He has been on intravenous daptomycin and also fluconazole for local wound infection. Infectious Disease is on board. Both of his antifungal antibiotics have been stopped. Awaiting repeat blood culture results. Currently he is not in shock. Appreciate Infectious Disease recommendation about the need for further antibiotics. 2. Acute tubular necrosis on previous history of chronic kidney disease, now end -stage renal disease on Tuesday, Tuesday, Tuesday hemodialysis. Nephrology on board. He has right-sided groin dialysis catheter. At the time of discharge we will have to get a tunneled catheter. 3. Acute encephalopathy, likely metabolic, appears to be related to hospital- acquired delirium. Previously he was seen by Neurology who had suggested that his delirium on presentation could be related to withdrawal from his previous history of multiple drug use. He does not have focal abnormality on my examination, I will continue to monitor it for now. 4. Anemia of chronic disease. Currently hemoglobin is stable. It appears to be macrocytic. 5. Other issues. His septic shock has resolved. His acute respiratory failure requiring continuous bilevel positive airway pressure has resolved. He on admission had positive urine toxicology for opiates, oxycodone and benzodiazepine suggestive of polysubstance abuse. He also had ketoacidosis on admission. 6. Disposition. The patient remains inside the hospital for need for bilateral restraints. My plan is to modify his antipsychotic medication regimen and keep him on standing quetiapine and p.r.n. haloperidol to better control his agitation, and remove hydromorphone and benzodiazepine to avoid confusion. Once a better mental status is achieved the plan is to take the restraints off, get the tunneled dialysis catheter and then discharge to rehabilitation. I will try and get in touch with his family to inform them of his course. cc: Kadeem Rivas MD MTDD
--- NOTE | 2018-09-28 17:32 | INFECTIOUS DISEASE PROGRESS NO ---
DATE: 09/28/2018 PRESENT ILLNESS: The patient has a vancomycin-resistant enterococcal bacteremia and a vancomycin- resistant enterococcal and Eugenia infection of his right hip where he had necrotizing fasciitis. MEDICATIONS: This is the 14th day of treatment with daptomycin and fluconazole. The patient had been on cefepime but this has been discontinued for 2 days. PHYSICAL EXAMINATION: Vital Signs: Temperature is 98.4 degrees, pulse 101, respirations 16, blood pressure 115/61. General: This is an ill-appearing, middle-aged male, although he looks a whole lot better than he did earlier. He is coherent. He talks in a coherent way and he does some things that I requested of him, such as moving his hands or opening his mouth. Head, eyes, ears, nose, and throat: No drainage from the nose or ears. He does not have any white patches on his tongue. Neck: No meningismus. Lungs: Clear to auscultation. Cardiovascular: Heart rate is irregular. Abdomen: Soft and nontender. Extremities: On the right hip the patient has the VAC in place. In the right groin there is a Trialysis catheter. The catheter site is not draining or tender. Neurologic: The patient today is very calm. He is sitting in bed. He moved his extremities to my request. LAB AND X-RAY: There is not a new x-ray. CBC today shows the white count still is creeping up a little bit, it is 12,250. Hemoglobin 8.7 and platelet count 442,000. Creatinine is 5.4. GFR is 13. ASSESSMENT AND PLAN: The patient's bacteremia and infected right hip have been treated. The white count is still up. I am going to stop the patient's antibiotics and obtain blood cultures and repeat the CBC. COMORBIDITIES: Diabetes mellitus, alcoholism, acute kidney injury, congestive heart failure, and global encephalopathy. cc: Segun Coffey MD MTDJoseph
[2018-09-28] MEDS: HALDOL IV PRN (18:17)
[2018-09-28] MEDS: SEROQUEL PO SCH (21:44)
[2018-09-29] MEDS ORDERED: HEPARIN IV PRN (05:51)
[2018-09-29] MEDS ORDERED: NS 2,000 ML MISC PRN (05:51)
[2018-09-29] MEDS ORDERED: TIGHT: 0.2 ML/HR FOR DIALYSIS MISC PRN (05:51)
[2018-09-29] MEDS: HUMULIN R SUBQ SCH ×4 (06:28→20:48)
[2018-09-29 06:32] LABS: POTASSIUM 3.5 mmol/L (3.5-5.1)
[2018-09-29 06:33] LABS: CREATININE 7.5 mg/dL (0.7-1.2)
[2018-09-29] MEDS: HEPARIN SUBQ SCH ×3 (06:41→20:47)
[2018-09-29] MEDS: CULTURELLE NG SCH ×2 (10:01→20:47)
[2018-09-29] MEDS: VITAMIN B-1 PO SCH (10:01)
[2018-09-29] MEDS: FOLIC ACID PO SCH (10:01)
[2018-09-29] MEDS: SODIUM CHLORIDE 0.9% INJ SCH (10:02)
[2018-09-29] MEDS: PROTONIX IV SCH (10:02)
[2018-09-29 10:58] LABS: BASO# 0.06 X1000 (0.0-0.2); BASO% 0.7 % (0.0-0.8); EOS# 0.46 X1000 (0.0-0.7); EOS% 5.3 % (0.0-10.0); HEMATOCRIT 25.9 % (42.0-52.0); IMM GRAN# 0.04 X1000 (0.0-0.04); IMM GRAN% 0.5 % (0.0-0.5); LYMPH# 2.34 X1000 (1.2-3.4); LYMPH% 26.8 % (20.5-51.1); MCH 31.4 PG (27-31); MCHC 30.9 g/dL (33-37); MCV 101.6 FL (81-99); MONO# 0.99 X1000 (0.11-0.59); MONO% 11.3 % (1.7-9.3); MPV 9.5 FL (7.4-10.4); NEUT# 4.84 X1000 (1.4-6.5); NEUT% 55.4 % (42.2-75.2); PLT 464 X1000 (130-400); RBC 2.55 XMIL (4.7-6.1); RDW 13.9 % (11.5-14.5); WBC 8.73 X1000 (4.8-10.8)
[2018-09-29] MEDS: DILAUDID IV PRN ×2 (11:51→16:59)
--- NOTE | 2018-09-29 14:03 | INFECTIOUS DISEASE PROGRESS NO ---
DATE: 09/29/2018 PRESENT ILLNESS: Mr. Boyce has completed treatment for vancomycin-resistant enterococcal and candidal infection to his right hip where he has had a necrotizing fasciitis. There was also an associated vancomycin-resistant enterococcal bacteremia which has been successfully treated. MEDICATIONS: Antimicrobials have been discontinued as of yesterday. PHYSICAL EXAMINATION: Vital Signs: Temperature is 97.6 degrees, pulse rate 82 , respiratory rate 16, blood pressure 137/86, O2 saturations 100% on room air. General: This is a chronically ill- appearing middle-aged gentleman. He is lying in the bed, confused with soft wrist restraints in place. HEENT: Atraumatic, normocephalic. Oral mucous membranes are pink and moist. Dentition is poor with dental caries noted. Neck: Supple. Trachea is midline. Respiratory: Lung sounds are clear to auscultation. Diminished in the bases. Cardiovascular: Heart rate and rhythm are regular. Normal sinus rhythm on the monitor. Pedal and radial pulses are +1 bilaterally. Abdomen: Soft, round and nontender. Bowel sounds are active. Integumentary: There is a Vas- Cath noted in the right groin. Site is without edema, erythema or drainage. The dressing and wound VAC have been removed from his right hip. The skin is clean, pink, and no purulence is noted to the wound. Neurologic: The patient is awake, alert and oriented to person only. LABORATORY AND X-RAY: Today his white count is 8.73, hemoglobin 8, platelet count 464,000. Creatinine is 7.5, GFR 9. There are blood cultures which are preliminary that were drawn yesterday, no new imaging reports today. ASSESSMENT AND PLAN: Mr. Boyce has completed treatment for his bacteremia and his infected right hip. His white count has gone back to normal at this point. Antimicrobials have been stopped. At this point, we will sign off and be available on an as needed basis. These plans have been discussed with and recommended by Dr. Coffey. COMORBIDITIES: For Mr. Boyce include diabetes mellitus, alcoholism, congestive heart failure, encephalopathy and acute kidney injury requiring hemodialysis. Dictated by ANGEL Bansal for Segun Coffey MD This chart was documented by, ANGEL Bansal and accurately reflects the services performed, treatment plan and medical decisions as attested by the providers signature Segun Coffey MD. cc: Segun Coffey MD MTDD
--- NOTE | 2018-09-29 16:01 | NEPHROLOGY PROGRESS NOTE ---
DATE: 09/29/2018 SUBJECTIVE: He is about the same today. Resting in bed. No new complaints. OBJECTIVE: Blood pressure is 132/62, heart rate 75, respirations 18, afebrile. No urine output recorded but multiple incontinent voids. Skin is warm and dry. Conjunctivae are pink. Neck veins are not distended. Heart is regular with S4. Lungs are equal, shallow. No crackles. Abdomen: Soft, nontender. Bowel sounds present. Extremities: No edema, clubbing or cyanosis. IMPRESSION: Acute kidney injury. No recovery. Volume status is acceptable, and electrolytes and acid base are in target. We will plan his next treatment tomorrow. cc: Dilip Carmona MD
--- NOTE | 2018-09-29 20:16 | PROGRESS NOTE ---
DATE: 09/29/2018 INTERVAL HISTORY: His wound dressing was changed. SUBJECTIVE: The patient does not appear to be in any acute distress. The patient's uncle is at bedside. Plan of care was discussed with him. OBJECTIVE: The patient answers questions appropriately intermittently; however, he appears confused and delirious at the same time. Vital signs: Temperature 98.5 degrees, pulse 80, respiratory rate 14, blood pressure 117/67, saturating 100% on room air. General: He is a little agitated at the time of my evaluation, and he is fidgety in the bed. He is in bilateral wrist restraints. Oral cavity is moist. Air entry bilaterally equal. No wheeze, rhonchi or crackles. S1, S2 normal. No murmur, rub or gallop. Abdomen soft, nontender. Lower extremities: He has a right groin central venous catheter. He also has right hip wound VAC. He has left below-knee amputation. LABORATORY DATA: Labs suggestive of resolution of leukocytosis, macrocytic anemia with hemoglobin of 8, thrombocytosis. Electrolytes in acceptable range except elevated creatinine. Microbiology: Repeat blood cultures have no growth to date. ASSESSMENT AND PLAN: 1. Vancomycin-resistant enterococcal faecium group D septic shock from right hip infection, requiring intensive care unit and pressors, now resolved. He is status post intravenous daptomycin and p.o. fluconazole for local wound infection. Both of his medications have been stopped since 09/28/2018. Follow up repeat blood cultures to make sure his blood culture is clear. 2. Acute tubular necrosis on previous history of chronic kidney disease, now endstage renal disease, on Tuesday, Tuesday and Tuesday hemodialysis. Nephrology on board. The eventual plan would be to change his right-sided groin dialysis catheter to a tunneled catheter at the time of discharge. 3. Acute encephalopathy, likely metabolic due to hospital-acquired delirium. Continue nighttime quetiapine and p.r.n. haloperidol. If his encephalopathy does not resolve, I would consider another opinion from Neurology. 4. Anemia of chronic disease, macrocytic in nature. We will follow up CBC as needed. 5. Others: His septic shock has resolved. His acute respiratory failure requiring continuous bilevel positive airway pressure has resolved. He has history of polysubstance abuse with urine toxicology positive for opiates, oxycodone and benzodiazepine. He also had delirium episodes since prolonged hospital stay. 6. Disposition: I advised the patient's family member, his uncle at bedside, to redirect, reassure and reorient him. We will try to minimize the use of antipsychotic medication to control his delirium, unless he starts interfering with care. Once his delirium is controlled, the plan is to eventually change his dialysis catheter to tunneled dialysis catheter, keep him off restraints, and then possibly discharge him to rehabilitation or a long- term acute care facility. I will try and reach out to his daughter and inform her about the patient's medical condition. cc: Kadeem Rivas MD
[2018-09-29] MEDS: SEROQUEL PO SCH (20:46)
--- NOTE | 2018-09-29 20:55 | PULMONOLOGY PROGRESS NOTE ---
DATE: 09/29/2018 SUBJECTIVE: The patient is awake and alert. He is in restraints. It is not clear whether he is oriented. He has no increased work of breathing. OBJECTIVE: Blood pressure 117/67, heart rate 80, respiratory rate 14, oxygen saturation 100% on room air. HEENT: Pupils are equal and reactive. Oropharynx is clear. Neck is supple. Chest reveals diminished breath sounds at the right base. Cardiac exam: S1, S2. Abdomen is soft. Extremities reveal prior surgery and trace edema. LABORATORY DATA: Sodium 143, potassium 3.5, chloride 103, bicarbonate 24, BUN 19, creatinine 0.5. White blood count 8.73, hemoglobin 8.0, platelet count 464,000. DIAGNOSTIC DATA: No new chest x-ray data. IMPRESSION: 1. A 58-year-old with chronic elevation of the right hemidiaphragm, respiratory failure which is now resolved. 2. Necrotizing fasciitis involving the right hip, undergoing continued treatment. RECOMMENDATIONS: 1. Followup chest x-ray tomorrow. 2. Continue bronchial hygiene. cc: Mynor Cabezas MD
[2018-09-30] MEDS ORDERED: NS 500 ML ONE (01:14)
[2018-09-30] MEDS ORDERED: NS 250 ML IV SCH (01:15)
[2018-09-30] MEDS: HEPARIN SUBQ SCH ×3 (05:58→20:55)
[2018-09-30] MEDS ORDERED: NS 2,000 ML MISC PRN (06:24)
[2018-09-30] MEDS ORDERED: TIGHT: 0.2 ML/HR FOR DIALYSIS MISC PRN (06:24)
[2018-09-30] MEDS ORDERED: HEPARIN IV PRN (06:24)
--- NOTE | 2018-09-30 06:56 | Diag Imaging Result Doc PS360 ---
EXAM: CHEST-PORTABLE HISTORY: abnormal exam TECHNIQUE: Portable chest single view COMPARISON: 05/26/2018 FINDINGS: Slightly improved inspiratory effort. The right hemidiaphragm is elevated. The sternal wires and surgical clips. Heart is borderline mildly prominent. No pulmonary edema. No consolidation. No pleural effusions identified. IMPRESSION: Mild interval improvement. Electronically signed by Mingo Fox 09/30/2018 6:54 AM
[2018-09-30] MEDS: HUMULIN R SUBQ SCH ×4 (07:02→22:40)
[2018-09-30 07:10] LABS: CALCIUM 8.8 mg/dL (8.8-10.2); POTASSIUM 3.4 mmol/L (3.5-5.1)
[2018-09-30 07:13] LABS: CREATININE 8.3 mg/dL (0.7-1.2)
[2018-09-30] MEDS: TYLENOL PO PRN (07:37)
[2018-09-30] MEDS: HALDOL IV PRN ×2 (07:49→23:47)
[2018-09-30] MEDS: FOLIC ACID PO SCH (13:31)
[2018-09-30] MEDS: SODIUM CHLORIDE 0.9% INJ SCH (13:31)
[2018-09-30] MEDS: VITAMIN B-1 PO SCH (13:31)
[2018-09-30] MEDS: PROTONIX IV SCH (13:31)
[2018-09-30] MEDS: CULTURELLE NG SCH ×2 (13:31→20:54)
--- NOTE | 2018-09-30 14:57 | NEPHROLOGY PROGRESS NOTE ---
DATE: 09/30/2018 SUBJECTIVE: He is more appropriate today. He denies pain, nausea, shortness of breath. He is able to say that he is still very ill. He has not required 4-point restraints anymore. OBJECTIVE: Vital Signs: Blood pressure 104/66, heart rate 62, respirations 16, afebrile. Generally: No acute distress. Skin: Warm and dry. Neck: Neck veins are not visible. Heart: Regular with S4. Lungs: Equal. No crackles or wheezes. Abdomen: Soft, nontender. Bowel sounds present. Extremities: No edema, clubbing or cyanosis. IMPRESSION AND PLAN: Acute kidney injury. No recovery thus far. He will have dialysis today. Electrolytes/acid base in target. cc: Dilip Carmona MD
[2018-09-30] MEDS: OXY IR PO PRN ×2 (16:05→20:54)
--- NOTE | 2018-09-30 18:10 | PROGRESS NOTE ---
DATE: 09/30/2018 INTERVAL HISTORY: The patient got hemodialysis today, which he tolerated okay, and his mental status is doing much better today. SUBJECTIVE: The patient is appearing much more awake and alert today. Does not appear in any acute distress. He is answering most questions appropriately. He is oriented to himself, but he is not oriented with time, though. He appears to be in pain because of right hip site pain. OBJECTIVE: Currently temperature 98.2 degrees, pulse 87, respiratory 16, blood pressure 102/62, saturating 99% on room air. General: He does not appear in any acute distress, follows simple commands. Oral cavity is moist. Air entry bilaterally equal. No wheeze, rhonchi, crackles. He is not in any restraints. S1, S2 normal. No murmur, rub or gallop. Abdomen is soft, nontender. He has a right groin central venous catheter and right hip wound VAC. 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 He just had a bowel movement. LABORATORY DATA: BMP suggestive of potassium of 3.4. Elevated BUN and creatinine. Repeat blood culture drawn on 09/28 has not shown any growth. ASSESSMENT AND PLAN: 1. Vancomycin-resistant enterococcal faecium group D septic shock from right hip infection, requiring intensive care unit and pressors, now resolved. He is status post intravenous daptomycin and p.o. fluconazole for local wound infection with silas. Repeat blood culture: No growth to date. Both medications have been stopped since 09/28. 2. Acute tubular necrosis, without known prior history of needing hemodialysis. Currently he is hemodialysis-dependent. Nephrology on board. The eventual plan is to change his right-sided groin catheter and get a tunneled dialysis catheter at the time of discharge. 3. Acute encephalopathy due to hospital-acquired delirium. Continue nighttime quetiapine and p.r.n. haloperidol. 4. Right-sided hip pain. I will keep him on acetaminophen. We will add oxycodone and p.r.n. intravenous hydromorphone at the time of wound dressing change. 5. Macrocytic anemia, appears to be anemia of chronic disease, stable. 6. Other issues: His respiratory failure requiring continuous bilevel positive airway pressure has resolved. He does have history of polysubstance abuse, and on admission it was thought that he had delirium related to substance withdrawal. 7. Disposition: I called the patient's daughter on [phone]; however, she did not picking crew supervisor and the voice message was full, so I called the patient's sister on [phone] and extensively discussed the patient's medical course, further plan and answered all of her questions. The eventual plan is to get a tunneled dialysis catheter early next week and send him to rehab. cc: Kadeem Rivas MD
[2018-09-30] MEDS: SEROQUEL PO SCH (20:53)
[2018-10-01] MEDS: OXY IR PO PRN ×4 (00:50→20:32)
[2018-10-01] MEDS: HEPARIN SUBQ SCH ×3 (05:00→20:32)
[2018-10-01 06:49] LABS: BASO# 0.03 X1000 (0.0-0.2); BASO% 0.3 % (0.0-0.8); EOS# 0.37 X1000 (0.0-0.7); EOS% 4.3 % (0.0-10.0); HEMATOCRIT 23.9 % (42.0-52.0); HEMOGLOBIN 7.5 g/dL (14.0-18.0); IMM GRAN# 0.03 X1000 (0.0-0.04); IMM GRAN% 0.3 % (0.0-0.5); LYMPH# 2.64 X1000 (1.2-3.4); LYMPH% 30.5 % (20.5-51.1); MCH 31.6 PG (27-31); MCHC 31.4 g/dL (33-37); MCV 100.8 FL (81-99); MONO# 1.04 X1000 (0.11-0.59); MPV 9.1 FL (7.4-10.4); NEUT# 4.55 X1000 (1.4-6.5); NEUT% 52.6 % (42.2-75.2); PLT 346 X1000 (130-400); RBC 2.37 XMIL (4.7-6.1); RDW 13.6 % (11.5-14.5); WBC 8.66 X1000 (4.8-10.8)
[2018-10-01 07:07] LABS: CALCIUM 7.9 mg/dL (8.8-10.2); POTASSIUM 3.6 mmol/L (3.5-5.1)
[2018-10-01] MEDS: HUMULIN R SUBQ SCH ×4 (07:07→21:30)
[2018-10-01 07:41] LABS: CREATININE 5.9 mg/dL (0.7-1.2)
[2018-10-01] MEDS: SODIUM CHLORIDE 0.9% INJ SCH (08:50)
[2018-10-01] MEDS: PROTONIX IV SCH (08:50)
[2018-10-01] MEDS: VITAMIN B-1 PO SCH (08:51)
[2018-10-01] MEDS: CULTURELLE NG SCH ×2 (08:51→20:32)
[2018-10-01] MEDS: FOLIC ACID PO SCH (08:51)
--- NOTE | 2018-10-01 16:55 | PULMONOLOGY PROGRESS NOTE ---
DATE: 10/01/2018 SUBJECTIVE: The patient is awake, alert and conversant. He is without specific complaints. He does report some concern over not knowing where his prosthesis is located . OBJECTIVE: He has been afebrile for the last 24 hours. Blood pressure 122/68, heart rate 87, respiratory rate 16.HEENT: Pupils are equal and reactive. Oropharynx is clear . Neck: Is supple. Chest: Reveals decrease breath sounds right base. Cardiac: S1, S2 . Abdomen: Is soft without hepatosplenomegaly . Extremities: Without edema, he has a [id number] amputation on the left . LABORATORIES: Chest x-ray 09/30/2017 revealed chronic elevation of the right hemidiaphragm without acute infiltrates or disease . IMPRESSION: 58-year-old with 1. Chronic elevation of the right hemidiaphragm. The patient presented with ventilatory failure due to inability to compensate but this has resolved. 2. Necrotizing fasciitis of the hip ongoing treatment. 3. Acute renal failure. RECOMMENDATIONS: 1. Continue bronchial hygiene. INCOMPLETE REPORT -- DICTATION ENDS HERE. cc: Mynor Cabezas MD
--- NOTE | 2018-10-01 17:41 | PROGRESS NOTE ---
DATE: 10/01/2018 INTERVAL HISTORY: No events. SUBJECTIVE: The patient was sleepy. On verbal stimuli he woke up. He states that sometimes he wakes up with weird thoughts and confusion and I explained to him that this could be related to his prolonged hospital stay, which should get better as his illness improves. I also explained to him that he is in the hospital and I oriented him and redirected. His complaining of some discomfort at the right hip wound VAC site. OBJECTIVE: Vital signs: Temperature 97.4 degrees, pulse 87, blood pressure 125 /49, saturating 100% on room air. General: Does not appear in acute distress. HEENT: Oral cavity is moist. Lungs: Air entry bilaterally equal with decreased air entry in the left infrascapular region. No wheeze or rhonchi or crackles. Cardiovascular: S1, S2 normal. No murmur, rub, or gallop. Abdomen: Soft, nontender. Extremities: He has right groin central venous catheter. Right hip wound VAC. 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 LAB DATA: Today suggestive of no leukocytosis. Hemoglobin of 7.5 with macrocytosis and Normal platelet count, resolution of hypokalemia, elevated creatinine. MICROBIOLOGY: No data. IMAGING: Chest x-ray performed on September 30 had suggested chronically elevated right hemidiaphragm, otherwise no acute pathology. ASSESSMENT AND PLAN: 1. Vancomycin-resistant enterococcal faecium group D septic shock from right hip necrotizing fasciitis infection requiring ICU and pressors, now resolved. He is status post intravenous daptomycin and fluconazole for wound infection with Eugenia. Repeat blood culture no growth to date. Both medications have been stopped since September 28. 2. Acute tubular necrosis without known prior history of hemodialysis dependence. Currently hemodialysis dependent through right-sided groin catheter. The eventual plan is to change the right-sided groin catheter and get a tunneled dialysis catheter at the time of discharge. 3. Acute encephalopathy due to hospital-acquired delirium, now resolved. Continue nighttime quetiapine and p.r.n. haloperidol. 4. Right-sided necrotizing fasciitis and hip pain related to wound VAC and dressing change. Continue acetaminophen p.r.n., oxycodone as needed. 5. Macrocytic anemia and anemia of chronic disease and anemia related to frequent blood draws. Currently appears stable. Follow up with CBC. 6. Other issues. His respiratory failure requiring continuous BiPAP support has resolved. He does have history of polysubstance abuse and I counseled him about not using these substances in the future. On admission he also had delirium related to substance withdrawal. 7. Disposition. I called the patient's daughter at [phone]; however, she did not cone picker and the voice message was full. So, I had called the patient's sister at on September 30 and extensively discussed with her about the patient's medical course. The eventual plan is to discharge the patient to a facility which can provide him dialysis and wound care in the near future. cc: Kadeem Rivas MD MTDJoseph
[2018-10-01] MEDS: SEROQUEL PO SCH (20:31)
[2018-10-02] MEDS: OXY IR PO PRN ×3 (04:05→20:37)
[2018-10-02 06:29] LABS: CALCIUM 8.8 mg/dL (8.8-10.2); POTASSIUM 3.9 mmol/L (3.5-5.1)
[2018-10-02] MEDS: HUMULIN R SUBQ SCH ×4 (06:59→22:19)
[2018-10-02] MEDS: HEPARIN SUBQ SCH ×2 (07:50→17:49)
[2018-10-02] MEDS: PRILOSEC PO SCH (07:50)
[2018-10-02] MEDS: CULTURELLE NG SCH ×2 (09:01→20:34)
[2018-10-02] MEDS: FOLIC ACID PO SCH (09:01)
[2018-10-02] MEDS: VITAMIN B-1 PO SCH (09:01)
[2018-10-02] MEDS: CENTRUM SILVER PO SCH (09:04)
[2018-10-02] MEDS: ICAR-C PO SCH ×2 (09:04→20:34)
--- NOTE | 2018-10-02 11:21 | GASTROENTEROLOGY PROGRESS NOTE ---
DATE: 10/02/2018 SUBJECTIVE: The patient is resting in bed. He is feeling better. He denies any new complaints. He denies any nausea or vomiting. He denies any fevers, rigors, or chills. He is eating better. He is moving his bowels. PHYSICAL EXAMINATION: Vital Signs: Temperature 98.1, pulse rate of 75, respiratory rate of 16, blood pressure 132/52, saturating 97% on room air. Body weight of 171 pounds 9.6 ounces. BMI 23 kg/m2. General Appearance: Moderately built, moderately nourished, lying in bed, in no acute distress. HEENT: Pale conjunctivae. No icterus. Neck: Supple. Abdomen: Soft, nontender, nondistended. No guarding. No rebound. Extremities: He is status post left below-knee amputation. He has a wound VAC on the right hip. Neurologic: He is alert, awake, and oriented x3. LAB: Hemoglobin and hematocrit are 7.5 and 23.9, white count of 8.6, platelet count of 340,000. Of Sodium 137, potassium 3.9, chloride 99, bicarb 25, anion gap 13, BUN of 22, creatinine 0.7, glucose of 98, calcium is 8.8. Blood culture drawn on 09/28/2018 was negative x2 after 48 hours. IMAGING: Chest x-ray done 2 days ago which showed mild interval improvement. Heart is borderline mildly prominent. No pulmonary edema. No pleural effusions. Sternal wires and surgical clips are noted. IMPRESSION AND PLAN: 1. Anemia. Continue to watch for now and transfuse as needed. He will continue on iron supplementation. I will restart him on iron C twice a day and a multivitamin once daily. The patient will be transfused as needed per the primary care team. There are no signs of any overt gastrointestinal bleeding but as an outpatient, the patient will need workup of anemia in the form of esophagogastroduodenoscopy and colonoscopy once he recovers from current active issues. 2. Vancomycin-resistant Enterococcal faecium group D septic shock from right hip necrotizing fasciitis infection. He is on intravenous daptomycin and fluconazole. 3. Acute tubular necrosis. Now in renal failure and on hemodialysis. This is being managed by Dr. Carmona. 4. Encephalopathy. This has improved. 5. Right hip necrotizing fasciitis. Has a wound VAC. 6. Gastrointestinal prophylaxis with omeprazole once daily. 7. Diarrhea, is now resolved. He is having one bowel movement a day. He is on Culturelle twice a day . to prevent antibiotic associated diarrhea. 8. The above plan was discussed with the patient. All questions were answered. He should follow up in the clinic after discharge. Please call us with any further questions. cc: MD Kadeem Knight MD MTDD
--- NOTE | 2018-10-02 14:36 | NEPHROLOGY PROGRESS NOTE ---
DATE: 10/02/2018 SUBJECTIVE: Patient currently resting in bed. He has no complaints today. He is out of restraints. He does not know why he is in the hospital. OBJECTIVE: Vital Signs: Temperature 98.1 degrees, pulse 75, respiratory rate 16, blood pressure 132/52. Intake and output: Intake 200 mL. Output not measured. PHYSICAL EXAMINATION: General: Middle-aged gentleman, resting in bed. Awake, alert, no acute distress. HEENT: Normocephalic, atraumatic. JESSIKA. Oral mucosa dry. Neck: Supple. There is no JVD. Cardiovascular: Regular rate and rhythm with a gallop. Pulmonary: Clear bilaterally with equal excursion. He is on O2 supplementation. Abdomen: Soft with positive bowel sounds. Genitourinary: Not inspected. Extremities: No clubbing, cyanosis, or edema. Left BKA noted. Integumentary: Skin is warm and dry. He has a right hip wound with a wound VAC noted. ASSESSMENT AND PLAN: Acute kidney injury. No recovery as of yet. We are dialyzing him on a Tuesday, , Tuesday schedule. I will plan to dialyze him tomorrow. Dictated by ANGEL Benitez for Dilip Carmona MD Face to face encounter, data reviewed, discussed with Paulino Reid on 10/02/18. I agree with the above assessment and plan of care. cc: Dilip Carmona MD [facility]
--- NOTE | 2018-10-02 14:40 | GENERAL SURGERY PROGRESS NOTE ---
DATE: 10/02/2018 SUBJECTIVE: The patient has no acute complaints over the weekend. He is nearing discharge, and we are asked to put in a tunneled dialysis catheter. OBJECTIVE: Vital Signs: He is afebrile. Vital signs are stable. General: He is awake, alert, oriented x4. No acute distress. Skin: The right groin Vas-Cath is intact without erythema or hematoma. The right neck and upper chest also appear to be without erythema or open sores. LABORATORY DATA: Hemoglobin 7.5, hematocrit 23.9, platelet count 346,000. Electrolytes unremarkable. ASSESSMENT AND PLAN: This is a 58-year-old male with acute kidney injury without recovery, requiring dialysis. We will place the tunneled dialysis catheter tomorrow in the operating room. I have discussed the risks and benefits with him, including bleeding, infection, pneumothorax, catheter malfunction, and other imponderables. He understands and agrees to proceed. cc: Elliott Mitchell MD
--- NOTE | 2018-10-02 18:55 | PROGRESS NOTE ---
DATE: 10/02/2018 INTERVAL HISTORY: No acute events overnight. Surgery team had evaluated the patient and has decided to put in a tunneled dialysis catheter, hopefully on October 03. SUBJECTIVE: Patient is sleeping. However, he wakes up to verbal stimuli and sits on the edge of the bed. Denies any complaints. I discussed with him about the fact that he would benefit from rehab considering his prolonged illness and hospital admission. This time, I explained to him about potential benefits of rehab and he is in agreement with going to the rehab. I also informed him that I will call his daughter and inform her about patient's course. I answered all of his questions. PHYSICAL EXAMINATION: Vital Signs: Currently, vitals: Temperature 98.1, pulse 106, respiratory rate 14, blood pressure 134/59, saturating 99% on room air. General: Does not appear in any acute distress. ENT: Oral cavity is moist. Lungs: Air entry bilaterally equal. He does have decreased air entry in left infrascapular region. However, he does have chronically elevated hemidiaphragm. No wheeze, rhonchi or crackles. Cardiovascular: S1, S2 normal. No murmur, rub, or gallop. Abdomen: Soft, nontender. Integument/Extremities: He has a right-sided groin central venous catheter through which he is getting dialysis. He also has a right hip wound VAC. 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 LAB DATA: BMP suggestive of mild elevation of creatinine, otherwise unremarkable. ASSESSMENT AND PLAN: 1. Vancomycin-resistant enterococcal faecium group D septic shock from right hip necrotizing/fasciitis requiring intensive care unit and pressors, now resolved, status post intravenous daptomycin and fluconazole for local Eugenia infection and right-sided hip wound VAC. Repeat blood culture on September 28, no growth to date and he is off antibiotics since September 28. 2. Acute tubular necrosis without known prior history of hemodialysis dependence, currently hemodialysis dependent through right groin catheter on Tuesday, , Tuesday. Surgery team likely planning tunneled dialysis catheter on October 03. 3. Acute encephalopathy due to hospital acquired delirium, now resolved. Continue nighttime quetiapine and p.r.n. haloperidol. I will try stopping nighttime quetiapine today. 4. Right-sided necrotizing fasciitis status post wound VAC and hip pain related to that. Continue acetaminophen and p.r.n. oxycodone. 5. Macrocytic anemia and anemia of chronic disease, currently stable. Monitor CBC. 6. Respiratory failure, requiring continuous BiPAP support has resolved. He does have history of polysubstance abuse for which he was counseled against. He also on admission had delirium related to substance withdrawal. DISPOSITION: I called the patient's daughter at [phone] today and informed her about patient's clinical course and answered all of her questions. I also recommended the patient about going to rehab in order to get stronger, which he is in agreement. I am awaiting rehab bed availability at what point I will consider discharging him to rehab, which I anticipate in the next [address] to [address] cc: Kadeem Rivas MD
[2018-10-02] MEDS: SEROQUEL PO SCH (20:34)
[2018-10-02] MEDS: DILAUDID IV PRN (22:30)
[2018-10-03] MEDS: PRILOSEC PO SCH (06:00)
[2018-10-03] MEDS ORDERED: HEPARIN IV PRN (06:45)
[2018-10-03] MEDS ORDERED: TIGHT: 0.2 ML/HR FOR DIALYSIS MISC PRN (06:45)
[2018-10-03] MEDS ORDERED: NS 2,000 ML MISC PRN (06:45)
[2018-10-03 07:03] LABS: BASO# 0.04 X1000 (0.0-0.2); BASO% 0.5 % (0.0-0.8); EOS# 0.33 X1000 (0.0-0.7); EOS% 4.3 % (0.0-10.0); HEMOGLOBIN 7.5 g/dL (14.0-18.0); IMM GRAN# 0.02 X1000 (0.0-0.04); IMM GRAN% 0.3 % (0.0-0.5); LYMPH# 2.46 X1000 (1.2-3.4); LYMPH% 31.7 % (20.5-51.1); MCHC 31.3 g/dL (33-37); MCV 99.2 FL (81-99); MONO# 0.76 X1000 (0.11-0.59); MONO% 9.8 % (1.7-9.3); MPV 9.2 FL (7.4-10.4); NEUT# 4.15 X1000 (1.4-6.5); NEUT% 53.4 % (42.2-75.2); PLT 400 X1000 (130-400); RBC 2.42 XMIL (4.7-6.1); RDW 13.1 % (11.5-14.5); WBC 7.76 X1000 (4.8-10.8)
[2018-10-03 07:20] LABS: CALCIUM 8.7 mg/dL (8.8-10.2); POTASSIUM 3.9 mmol/L (3.5-5.1)
[2018-10-03 07:26] LABS: CREATININE 7.3 mg/dL (0.7-1.2)
[2018-10-03] MEDS: HUMULIN R SUBQ SCH ×4 (09:23→22:30)
[2018-10-03] MEDS: OXY IR PO PRN ×2 (09:24→19:28)
[2018-10-03] MEDS ORDERED: KEFZOL 1 GM/D5W 1 GM/50 ML IVPB IV ONE (10:21)
[2018-10-03] MEDS ORDERED: DIPRIVAN 1% ONE (10:43)
[2018-10-03] MEDS ORDERED: XYLOCAINE-MPF 2% ONE (10:44)
[2018-10-03] MEDS ORDERED: ROBINUL ONE (10:44)
--- NOTE | 2018-10-03 11:18 | PROGRESS NOTE ---
DATE: 10/03/2018 INTERVAL HISTORY: No acute events. I had informed course of events to the patient's daughter and had answered all of her questions yesterday. SUBJECTIVE: Patient was sleepy. He woke up to verbal stimuli and was able to sit in the bed. I advised him that he should keep awake during daytime. VITAL SIGNS: Temperature 98.3 degrees, pulse 88, respiratory rate 16, blood pressure 125/53, saturating 100% on room air. PHYSICAL EXAMINATION: General: Does not appear in any acute distress. Lungs: Air entry bilaterally equal except decreased in the right infrascapular region because of chronically elevated right diaphragm. No wheeze or rhonchi. Cardiovascular: S1 and S2 normal. No murmur, rub, or gallop. Abdomen: Soft, nontender. Active bowel sounds. Extremities: He has a right- sided groin central venous catheter through which he is receiving dialysis. He also has a right hip wound VAC. 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 LABS: Suggestive of no leukocytosis. Stable hemoglobin, hematocrit, and platelet count. Normal electrolytes except elevated BUN and creatinine. No new microbiological data. ASSESSMENT AND PLAN: 1. Vancomycin-resistant Enterococcal faecium, group D, septic shock from right hip necrotizing fasciitis requiring intensive care unit and pressors, now resolved. He is status post intravenous daptomycin and oral fluconazole for local silas infection, and a right-sided hip wound VAC which he still has. Repeat blood culture on September 28, no growth to date and he is off antibiotics since then. 2. Acute tubular necrosis without known prior history of hemodialysis dependence, likely in the setting of sepsis from enterococci. He is on hemodialysis through a right groin catheter, on Tuesday, , Tuesday schedule. Surgery is planning tunneled dialysis catheter on October 03. 3. Acute encephalopathy due to hospital-acquired delirium, now resolved. I will now discontinue his nighttime quetiapine considering he has been very drowsy during daytime. Continue as needed haloperidol. 4. Right-sided necrotizing fasciitis, status post wound VAC, and hip pain related to that. Continue acetaminophen and as needed oxycodone. 5. Microcytic anemia and anemia of chronic disease, currently stable. I will monitor CBC. No need of transfusion at the moment. 6. Other issues. His respiratory failure requiring continuous BiPAP support has resolved. He has a previous history of polysubstance abuse and he was counseled against using these substances. Also, on admission, he had delirium related to substance withdrawal, which is now resolved. 7. Disposition. The patient will get a tunneled dialysis catheter. After that, he is okay to be discharged to rehab from a medical perspective. Social work team is in the process of finding a rehab bed where he could get his dialysis and wound VAC care on the right hip. He previously had behavioral issues with one of the rehabs which may not take him back. Plan of care was discussed with him. All of his questions have been answered. I had discussed plan of care with the patient's daughter who is the surrogate decision maker, on October 02. cc: Kadeem Rivas MD
[2018-10-03] MEDS: HEPARIN SUBQ SCH ×3 (11:56→19:00)
[2018-10-03] MEDS ORDERED: XYLOCAINE 1%/EPI 1:100,000 ONE (12:06)
[2018-10-03] MEDS ORDERED: NS 250 ML ONE (12:06)
[2018-10-03] MEDS ORDERED: KEFZOL 1 GM/D5W 1 GM/50 ML IVPB ONE (12:52)
--- NOTE | 2018-10-03 13:04 | NEPHROLOGY PROGRESS NOTE ---
DATE: 10/03/2018 SUBJECTIVE: Patient currently resting in bed. He has his head covered. He states he is cold. OBJECTIVE: Vital Signs: Temperature 97.9 degrees, pulse 87, respiratory rate 18, blood pressure 132/61. Intake 580 mL, output 500 mL. General: Middle-aged gentleman, resting in bed in no acute distress. HEENT: Normocephalic, atraumatic. Oral mucosa is dry. Neck: Supple without JVD. Cardiovascular: Regular rate and rhythm. No murmur. Pulmonary: Clear bilaterally. Equal excursion. No increased work of breathing. Abdomen: Soft with positive bowel sounds. : Not inspected. Extremities: No clubbing, cyanosis. Left BKA noted. Integumentary : Skin is warm and dry. Continues with the wound VAC. LABORATORY DATA: WBC of 7.7, hemoglobin 7.5, platelets 400,000. Sodium 136, potassium 3.9, CO2 of 23, creatinine 7.3, calcium 8.7. ASSESSMENT AND PLAN: Acute kidney injury without recovery. Will continue on a Tuesday, , Tuesday schedule at this time. We are planning on dialyzing him on a 3- potassium bath/ultrafiltrate to his last dry weight, 3.5-hour treatment today. Dictated by ANGEL Benitez for Dilip Carmona MD Face to face encounter, data reviewed, discussed with Paulino Reid on 10/03/18. I agree with the above assessment and plan of care. cc: Dilip Carmona MD [facility]
[2018-10-03] MEDS ORDERED: EPHEDRINE ONE (13:06)
--- NOTE | 2018-10-03 16:36 | OPERATIVE NOTE ---
PROCEDURE DATE: 10/03/2018 PREOPERATIVE DIAGNOSIS: Acute kidney injury. POSTOPERATIVE DIAGNOSIS: Acute kidney injury. PROCEDURE: 1. Insertion of tunneled dialysis catheter with fluoroscopic and ultrasound guidance. 2. Removal of central venous line. SURGEON: Elliott Mitchell MD ROAD [employer] TRUCK DRIVER: Guanakito Ovalle, 4th year medical student ANESTHESIA: General. ESTIMATED BLOOD LOSS: 3 mL. COMPLICATIONS: None apparent. SPECIMENS: None. FINDINGS: The right internal jugular vein was visualized with ultrasound, it was compressible, patent, and without thrombus. Fluoroscopy revealed the wire followed by the catheter into the superior vena cava and the tip of the catheter was left at the superior vena cava right atrial junction. TECHNIQUE: The patient was brought to the operating room and placed supine on the table. General anesthesia was induced. He was placed in Trendelenburg position. He was prepped and draped in usual sterile fashion. A catheter of appropriate length was selected and the right internal jugular vein was found with ultrasound. The skin over the vein was anesthetized with 0.5% Marcaine. A small skin incision was made and then under ultrasound guidance the vein was accessed with 1 stick, drawing back dark nonpulsatile blood. The wire passed through the needle easily and the wire was confirmed to be in the right atrium with fluoroscopy. I then made a counter incision below the right clavicle and then tunneled the catheter subcutaneously from the lower incision out through the neck incision. The dilators were passed over the wire and then the sheath was passed over the wire. The wire and internal dilator removed, the catheter was passed into the sheath. The sheath was removed. Both ports be back blood easily and were flushed with saline easily. Caps were placed on the ends of the catheter. It was anchored to the skin with nylon suture. The neck incision was closed with a subcuticular 3-0 Polysorb and a Steri-Strip. I then cut the sutures holding the right groin central venous line and removed the line. Pressure was held and a dressing was applied. There were no apparent complications. He was awakened in stable condition and transferred to the recovery room. cc: Elliott Mitchell MD
[2018-10-03] MEDS: CENTRUM SILVER PO SCH (19:01)
[2018-10-03] MEDS: ICAR-C PO SCH ×2 (19:19→21:52)
[2018-10-03] MEDS: VITAMIN B-1 PO SCH (19:19)
[2018-10-03] MEDS: FOLIC ACID PO SCH (19:19)
[2018-10-03] MEDS: CULTURELLE NG SCH ×2 (19:19→21:52)
[2018-10-03] MEDS: PERIDEX MT SCH (21:52)
[2018-10-03] MEDS: TYLENOL PO PRN (22:01)
[2018-10-03] MEDS: DILAUDID IV PRN (22:30)
[2018-10-04] MEDS: HALDOL IV PRN ×2 (00:56→22:06)
[2018-10-04] MEDS: HEPARIN SUBQ SCH ×3 (01:00→17:03)
[2018-10-04] MEDS: OXY IR PO PRN ×3 (04:25→23:05)
[2018-10-04] MEDS: ZOFRAN IV PRN ×2 (04:26→20:25)
[2018-10-04 06:31] LABS: CALCIUM 8.4 mg/dL (8.8-10.2); CREATININE 4.8 mg/dL (0.7-1.2); POTASSIUM 4.1 mmol/L (3.5-5.1)
[2018-10-04] MEDS: PRILOSEC PO SCH (07:01)
[2018-10-04] MEDS: HUMULIN R SUBQ SCH ×4 (07:03→22:10)
[2018-10-04] MEDS: ICAR-C PO SCH ×2 (09:37→20:26)
[2018-10-04] MEDS: CULTURELLE NG SCH ×2 (09:37→20:26)
[2018-10-04] MEDS: VITAMIN B-1 PO SCH (09:37)
[2018-10-04] MEDS: FOLIC ACID PO SCH (09:37)
[2018-10-04] MEDS: CENTRUM SILVER PO SCH (09:37)
[2018-10-04] MEDS: PERIDEX MT SCH ×2 (09:37→20:26)
[2018-10-04] MEDS: DILAUDID IV PRN (11:13)
[2018-10-04] MEDS: TYLENOL PO PRN ×2 (11:13→18:51)
[2018-10-04 16:05] LABS: HEPATITIS PROFILE ACUTE SEE COMMENTS
--- NOTE | 2018-10-04 18:11 | PROGRESS NOTE ---
DATE: 10/04/2018 INTERVAL HISTORY: The patient underwent right-sided groin dialysis catheter placement, which he tolerated well. No other acute events overnight. SUBJECTIVE: Patient is feeling fine. Denies any complaints. He states he would not go to [facility] and he thinks he wants to go to rehab place in [place] where he has some family members. He denies any other complaints except pain at the right lateral and posterior thigh wound VAC site. PHYSICAL EXAMINATION: Vitals: Temperature 97.8, pulse 81, respiratory rate 20, blood pressure 129/55, saturating 100% on room air. General: Does not appear in any acute distress. Lungs: Air entry bilaterally equal, slightly decreased air entry in right infrascapular region as compared to left because of chronically elevated right hemidiaphragm. No wheeze or rhonchi. Cardiac: S1, S2 normal. No murmur, rub, or gallop. Abdomen: Soft, nontender. Active bowel sounds. Skin: He has a right-sided groin dressing from previously inserted central line. He currently has a right-sided internal jugular tunneled dialysis catheter. He also has a wound VAC over the right lateral posterior thigh for his previous history of necrotizing fasciitis. LABS: No new microbiological or imaging data. ASSESSMENT AND PLAN: 1. Vancomycin-resistant Enterococcus faecium, group D septic shock from right hip necrotizing fasciitis, requiring intensive care unit and pressors, now resolved. Status post intravenous daptomycin and oral fluconazole for local candidal infection, which were stopped on September 28. Repeat blood culture no growth to date. He continues to have right thigh wound VAC. 2. Acute tubular necrosis without known prior history of hemodialysis, likely in the setting of enterococcal sepsis, now hemodialysis dependent. The patient received right-sided internal jugular tunneled dialysis catheter, currently on Tuesday, , Tuesday dialysis schedule. He is hepatitis C positive, hepatitis B negative. 3. Acute encephalopathy due to hospital acquired delirium, resolved. Continue as needed haloperidol. 4. Right-sided necrotizing fasciitis, status post wound VAC and hip pain related to that. Continue acetaminophen and as needed oxycodone. 5. Microcytic anemia and anemia of chronic disease. Also anemia, currently appears stable. No need of transfusion. Other issues: 1. Respiratory failure requiring continuous BiPAP support during previous hospital stay. 2. Previous known history of polysubstance abuse. 3. Acute delirium-related substance withdrawal at the time of admission, now have resolved. DISPOSITION: The patient wants to go to rehab in [place]. Previously he had behavioral issues at [facility] and he has family members at [place]. Social work team knows about this and is in the process of finding a rehab bed at [place] which can take care of his wound VAC, as well as dialysis. Plan of care was discussed with him. I had talked with the patient's daughter who is surrogate decision maker on October 02 and had updated her about plan of care and answered all of her questions. cc: Kadeem Rivas MD
[2018-10-05] MEDS: HALDOL IV PRN ×2 (01:10→09:41)
[2018-10-05] MEDS: TYLENOL PO PRN (01:10)
[2018-10-05] MEDS: HEPARIN SUBQ SCH ×3 (01:11→18:14)
[2018-10-05] MEDS ORDERED: HEPARIN IV PRN (05:54)
[2018-10-05] MEDS ORDERED: TIGHT: 0.2 ML/HR FOR DIALYSIS MISC PRN (05:54)
[2018-10-05] MEDS ORDERED: NS 2,000 ML MISC PRN (05:54)
[2018-10-05] MEDS: PRILOSEC PO SCH (06:23)
[2018-10-05] MEDS: OXY IR PO PRN ×3 (06:46→23:16)
[2018-10-05] MEDS: HUMULIN R SUBQ SCH ×4 (06:47→21:56)
[2018-10-05 07:27] LABS: BASO# 0.05 X1000 (0.0-0.2); BASO% 0.7 % (0.0-0.8); EOS# 0.28 X1000 (0.0-0.7); EOS% 3.7 % (0.0-10.0); HEMATOCRIT 23.7 % (42.0-52.0); HEMOGLOBIN 7.3 g/dL (14.0-18.0); LYMPH# 2.54 X1000 (1.2-3.4); LYMPH% 33.6 % (20.5-51.1); MCH 30.9 PG (27-31); MCHC 30.8 g/dL (33-37); MCV 100.4 FL (81-99); MONO# 0.64 X1000 (0.11-0.59); MONO% 8.5 % (1.7-9.3); NEUT# 4.04 X1000 (1.4-6.5); NEUT% 53.5 % (42.2-75.2); PLT 385 X1000 (130-400); RBC 2.36 XMIL (4.7-6.1); RDW 13.4 % (11.5-14.5); WBC 7.55 X1000 (4.8-10.8)
[2018-10-05 07:33] LABS: CALCIUM 8.9 mg/dL (8.8-10.2); POTASSIUM 4.6 mmol/L (3.5-5.1)
--- NOTE | 2018-10-05 10:26 | NEPHROLOGY PROGRESS NOTE ---
DATE: 10/05/2018 TIME SEEN: 0640 hours. SUBJECTIVE: Mr. Boyce is resting quietly in bed. Head of the bed is slightly elevated. He has no complaints. OBJECTIVE: His most recent vital signs: His last temperature 98.5 degrees, blood pressure 120/61, heart rate 90, respirations 20. He is on room air. Last recorded saturation is 100%. The patient has recorded 2040 in; 600 mL out with need for dialysis today. General: On physical examination, this is a 58-year-old male, resting quietly in bed in no acute distress. Skin: Warm and dry. HEENT: Normocephalic, atraumatic. Conjunctiva is pale. He has JESSIKA. Mucous membranes are dry. Neck: Supple. Trachea midline. No evidence of JVD. Cardiovascular: Regular rate and rhythm. He has an S4 present. Lungs: Clear to auscultation bilaterally. Equal excursion on room air. Abdomen: Soft, round, nontender. Positive bowel sounds. Genitourinary: Not inspected. The patient has been voiding minimal amount. Extremities: Left BKA. No edema, no clubbing or cyanosis to the right. Integumentary: Skin is warm and dry. Continues with wound VAC in place. Neurological: Alert and oriented x2 to person and to place only. LABS: Sodium 133, potassium 4.6, chloride 95, CO2 24. BUN 27, creatinine 6, glucose 123, anion gap of 14, calcium 8.9. White count 7.55, hemoglobin 7.3, hematocrit 23.7, platelet count 385. Blood culture showed no growth resulting on the twenty-first last completed. ASSESSMENT AND PLAN: 1. Acute kidney injury without recovery. Continues with decreased urinary output. Continues to dialyze today. We will place him on a 2 potassium bath. He is to dialyze for 3-1/2 hours. We will attempt to pull 2 liters of ultrafiltration. 2. Electrolytes, acid-base balance. These are acceptable with correction on dialysis. 3. Anemia. This remains low. The patient has not received any transfusion during this hospitalization. We will continue to monitor and evaluate. I would like to thank you for allowing us to follow with this patient. Dictated by ANGEL Mcgrath for Dilip Carmona MD Face to face encounter, data reviewed, discussed with Eleanor Valdez on 10/05/18. I agree with the above assessment and plan of care. cc: ANGEL Mcgrath MD MTDD
--- NOTE | 2018-10-05 13:35 | GASTROENTEROLOGY PROGRESS NOTE ---
DATE: 10/05/2018 SUBJECTIVE: The patient is resting in bed. He is feeling depressed. He denies any fevers, rigors, or chills. He denies any nausea, vomiting, vomiting blood, or passing blood in the stools. He is eating well. OBJECTIVE: Vital Signs: Temperature 99.4, pulse rate of 90, respiratory rate of 16, blood pressure 130/63, saturating 100% on room air. General Appearance: Moderately built, moderate nourished, lying in bed, in no acute distress. HEENT: Pale with no icterus. Neck: Supple. Abdomen: Soft, nontender, nondistended. No guarding. Extremities: Status post left below-knee amputation. Aware. Neurological: Alert, awake, and oriented x3. LABS: Hemoglobin and hematocrit are 7.3 and 23.7, white count of 7.5, platelet count of 385,000. Sodium 130, potassium 4.6, chloride 95, bicarb 24, anion gap 14, BUN of 27, creatinine of 6, glucose of 123, calcium is 8.9. Hepatitis panel is reactive, hepatitis C antibody. The hepatitis C PCR is still not back. We will follow up the results. IMPRESSION AND PLAN: 1. Anemia, likely secondary to renal failure and repeated blood draws on a daily basis. He denies any evidence of overt gastrointestinal bleeding. He will need an outpatient esophagogastroduodenoscopy and colonoscopy once recovered from acute illness. 2. Vancomycin resistant Enterococcus faecium group D septic shock from a right hip necrotizing fasciitis and has a right thigh wound VAC. He is on antibiotics per primary team. 3. Acute tubular necrosis leading to renal failure, on hemodialysis per Dr. Carmona. 4. Acute encephalopathy due to delirium and history of alcoholism, resolved. 5. Alcoholism. The patient was counseled to quit alcohol completely. 6. Depression. I discussed that with the patient's nurse who will ask primary care physician or hospitalist to start him on any kind of antidepression medication. 7. History of polysubstance abuse. Patient counseled to quit using illegal drugs completely. 8. Hepatitis C antibody positive. He reports a prior history of treatment. We will follow up on the hepatitis C PCR. 9. Anemia. Continue iron C twice a day and a multivitamin once daily. 10. The above plan was discussed with the patient. All questions were answered. I also spoke with the patient's nurse. cc: MD Wesley Alvarado MD
[2018-10-05] MEDS: PERIDEX MT SCH ×2 (18:14→21:44)
[2018-10-05] MEDS: ICAR-C PO SCH ×2 (18:14→21:44)
[2018-10-05] MEDS: FOLIC ACID PO SCH (18:14)
[2018-10-05] MEDS: CULTURELLE NG SCH ×2 (18:14→21:44)
[2018-10-05] MEDS: CENTRUM SILVER PO SCH (18:14)
[2018-10-05] MEDS: VITAMIN B-1 PO SCH (18:14)
--- NOTE | 2018-10-05 19:11 | PROGRESS NOTE ---
DATE: 10/05/2018 SUBJECTIVE: The patient is feeling weak. He just had dialysis today. He tolerated well the procedure. We will continue to monitor. No acute events overnight. OBJECTIVE: Vital signs: Temperature 98.3 degrees, pulse 93, respiratory rate 18, blood pressure 137/75, oxygen saturation 100% on room air. HEENT: Head normocephalic. No trauma. PERRLA. Neck supple. No JVD. No masses. Central trachea. Chest clear to auscultation. No wheezing. No rales. Abdomen is soft, nontender, nondistended. No hepatosplenomegaly. Extremities: He has a right-sided groin dressing from previous inserted central line. Also he has a right-sided internal jugular tunnelled dialysis catheter. His wound VAC over the right lateral posterior thigh from his necrotizing fasciitis is working fine. LABORATORY DATA: WBC 7.5, hemoglobin 7.3, hematocrit 23.7, platelets 385,000. Sodium 136, potassium 4.6, chloride 95, bicarbonate 24, BUN 27, creatinine 6, glucose 127, calcium 8.3. ASSESSMENT AND PLAN: 1. Vancomycin-resistant Enterococcus faecium group B septic shock from right hip necrotizing fasciitis. Continue with same management. He required to go to the intensive care unit and be on pressors. Now resolved. We will continue with Infectious Disease Department recommendations. 2. Acute tubular necrosis without recovery, now on hemodialysis. 3. Hepatitis C positive. Probably this patient will need to see a grinding supervisor as an outpatient to treat this. 4. Acute encephalopathy due to hospital-acquired delirium, resolved. 5. Right-sided necrotizing fasciitis, status post wound vacuum-assisted closure placement. Continue with pain management. 6. Microcytic anemia, probably due to chronic disease. Appears to be stable. No transfusion so far. We will monitor. 7. Respiratory failure, resolved. 8. History of polysubstance abuse. Aware. 9. Apparent mental status changes due to substance withdrawal at the moment of admission, resolved. 10. Disposition: We are trying to get placement for this patient to a rehab center. He wishes to go to [place]. cc: Zachariah Chino MD
[2018-10-05] MEDS: ATIVAN IV PRN (21:43)
[2018-10-06] MEDS: HEPARIN SUBQ SCH ×4 (01:06→22:52)
[2018-10-06] MEDS: NICODERM PATCH TD SCH ×2 (01:06→08:14)
[2018-10-06] MEDS: ATIVAN IV PRN ×3 (01:15→12:58)
[2018-10-06] MEDS: PRILOSEC PO SCH ×2 (05:40→06:03)
[2018-10-06] MEDS: HUMULIN R SUBQ SCH ×4 (06:03→22:41)
[2018-10-06 07:06] LABS: BASO# 0.04 X1000 (0.0-0.2); BASO% 0.5 % (0.0-0.8); EOS# 0.29 X1000 (0.0-0.7); EOS% 3.8 % (0.0-10.0); HEMATOCRIT 24.9 % (42.0-52.0); HEMOGLOBIN 7.7 g/dL (14.0-18.0); LYMPH# 2.06 X1000 (1.2-3.4); LYMPH% 27.3 % (20.5-51.1); MCHC 30.9 g/dL (33-37); MCV 100.4 FL (81-99); MPV 8.7 FL (7.4-10.4); NEUT# 4.55 X1000 (1.4-6.5); NEUT% 60.4 % (42.2-75.2); PLT 336 X1000 (130-400); RBC 2.48 XMIL (4.7-6.1); RDW 13.5 % (11.5-14.5); WBC 7.54 X1000 (4.8-10.8)
[2018-10-06 07:21] LABS: CALCIUM 8.9 mg/dL (8.8-10.2); CREATININE 4.5 mg/dL (0.7-1.2); POTASSIUM 4.1 mmol/L (3.5-5.1)
[2018-10-06] MEDS: PERIDEX MT SCH ×2 (08:14→22:51)
[2018-10-06] MEDS: OXY IR PO PRN ×2 (08:15→17:35)
[2018-10-06] MEDS: FOLIC ACID PO SCH (08:15)
[2018-10-06] MEDS: CENTRUM SILVER PO SCH (08:15)
[2018-10-06] MEDS: ICAR-C PO SCH ×2 (08:15→22:52)
[2018-10-06] MEDS: CULTURELLE NG SCH ×2 (08:15→22:51)
[2018-10-06] MEDS: VITAMIN B-1 PO SCH (08:16)
[2018-10-06] MEDS ORDERED: NICODERM PATCH TD SCH ×2 (09:00→23:13)
[2018-10-06 13:17] LABS: HCV BY PCR SEE COMMENTS
--- NOTE | 2018-10-06 13:29 | PROGRESS NOTE ---
DATE: 10/06/2018 SUBJECTIVE: No acute events overnight, he had dialysis yesterday. OBJECTIVE: Vital Signs: Temperature 98.3 degrees, pulse 104, respiratory rate 20, blood pressure 154/60, and oxygen saturation 98 percent on room air. HEENT: Head normocephalic. No trauma. PERRLA. Neck: Supple. No JVD. No masses. Central trachea. Chest: Clear to auscultation. No wheezing. No rales. Abdomen: Soft, nontender, and nondistended. No hepatosplenomegaly. Extremities: He has a right-sided groin dressing from previous inserted central line, right-sided internal jugular tunneled dialysis catheter. A wound VAC to the right lateral posterior thigh from his necrotizing fasciitis seems to be working fine. LABORATORY: WBC 7.5, hemoglobin 7.7, hematocrit 24.9 and platelets 336,000. Sodium 136, potassium 4.1, chloride 99, bicarbonate 24, BUN 70, creatinine 4.5, glucose 150 and calcium 8.9. ASSESSMENT AND PLAN: 1. VRE group B septic shock from right hip necrotizing fasciitis. Continue with same management. He required to go to intensive care unit and be on pressors at the beginning, now resolved. We will continue to follow the Infectious Disease department recommendations. 2. Acute tubular necrosis without recovery, now on hemodialysis. 3. Hepatitis C positive, probably this patient will need to follow up with Gastroenterology service as an outpatient. 4. Acute encephalopathy due to hospital-acquired delirium resolved. 5. Right-sided necrotizing fasciitis, status post wound VAC placement. Continue with the same management. Pain medication. 6. Microcytic anemia, probably due to chronic disease appears to be stable. No transfusions so far. 7. Respiratory failure, resolved. 8. History of polysubstance abuse. Aware. 9. Apparent mental status changes due to substance withdrawal at the moment of admission, resolved. 10. Disposition: Pending rehab center placement. cc: MD MARY Alvarado
--- NOTE | 2018-10-06 16:36 | NEPHROLOGY PROGRESS NOTE ---
DATE: 10/06/2018 SUBJECTIVE: He is doing well. No new complaints today. OBJECTIVE: Vital Signs: Blood pressure 154/60, heart rate 104, respirations 20, afebrile. Generally: No acute distress. Skin: Warm and dry. Eyes: Conjunctivae are pink. Neck: Neck veins are not distended. Cardiovascular: Heart is regular. Lungs: Are equal. Abdomen: Soft, nontender. Extremities: Have no edema, clubbing, or cyanosis. IMPRESSION: Acute kidney injury. No recovery. His next planned dialysis treatment will be tomorrow. Electrolytes/acid base/volume status all on target. cc: Dilip Carmona MD
[2018-10-07] MEDS: HEPARIN SUBQ SCH ×4 (00:06→23:52)
[2018-10-07] MEDS: PRILOSEC PO SCH ×2 (05:38→06:15)
[2018-10-07] MEDS: OXY IR PO PRN ×3 (05:38→21:56)
[2018-10-07] MEDS: HUMULIN R SUBQ SCH ×4 (06:14→21:57)
[2018-10-07 06:48] LABS: HEMATOCRIT 25.7 % (42.0-52.0); MCH 31.6 PG (27-31); MCHC 31.1 g/dL (33-37); MCV 101.6 FL (81-99); MPV 8.9 FL (7.4-10.4); RBC 2.53 XMIL (4.7-6.1); RDW 13.8 % (11.5-14.5); WBC 7.82 X1000 (4.8-10.8)
[2018-10-07] MEDS ORDERED: NS 2,000 ML MISC PRN (07:03)
[2018-10-07] MEDS ORDERED: HEPARIN IV PRN (07:03)
[2018-10-07 07:04] LABS: POTASSIUM 4.7 mmol/L (3.5-5.1)
[2018-10-07 07:12] LABS: CREATININE 5.1 mg/dL (0.7-1.2)
[2018-10-07] MEDS: NICODERM PATCH TD SCH (13:00)
[2018-10-07] MEDS: PERIDEX MT SCH ×2 (13:00→21:58)
[2018-10-07] MEDS: CENTRUM SILVER PO SCH (13:01)
[2018-10-07] MEDS: VITAMIN B-1 PO SCH (13:01)
[2018-10-07] MEDS: ICAR-C PO SCH ×2 (13:01→21:56)
[2018-10-07] MEDS: FOLIC ACID PO SCH (13:01)
[2018-10-07] MEDS: CULTURELLE NG SCH ×2 (13:01→21:56)
--- NOTE | 2018-10-07 15:27 | PROGRESS NOTE ---
DATE: 10/07/2018 SUBJECTIVE: When I evaluated this patient, he was finishing his dialysis and he was complaining of right hip pain, severe. As soon as he gets to the floor, he will receive pain medicine. Otherwise, no changes. OBJECTIVE: Vital Signs: Temperature 98.8 degrees, pulse 88, respiratory rate 20, blood pressure 130/74, oxygen saturation 100% on room air. HEENT: Head normocephalic. No trauma. PERRLA. Neck: Supple. No JVD. No masses. Central trachea. Chest: Clear to auscultation. No wheezing. No rales. Abdomen: Soft, nontender, nondistended. No hepatosplenomegaly. Extremities: He has a right-sided groin dressing from previous insertion of central line, right- sided internal jugular tunnel catheter, wound VAC to the right lateral posterior thigh from his necrotizing fasciitis, and this seems to be working fine. He is complaining of pain to palpation and mobilization. Neurological examination: Alert and oriented x3. No focal deficit, but pain. LABORATORY: WBC 7.8, hemoglobin 8, hematocrit 25.7, platelets 389. Sodium 138, potassium 4.5, chloride 100, bicarbonate 25. BUN 22, creatinine 5.1, glucose 106, calcium 9. ASSESSMENT AND PLAN: 1. Vancomycin-resistant Enterococcus Group B septic shock from right hip necrotizing fasciitis. Continue with the same management. Previously, he was in intensive unit with pressors, but this is much better and resolved. 2. Right-sided necrotizing fasciitis status post wound VAC placement. Continue with same management. Continue with pain medication. 3. Acute tubular necrosis without recovery, now on dialysis. We will monitor. 4. Hepatitis C positive. Likely this patient will need to follow up with Gastroenterology Service as an outpatient. 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 5. Acute encephalopathy due to hospital-acquired delirium, resolved. 6. Macrocytic anemia, B 12 and folate were requested. Folic acid level is low and he is getting treatment with folic acid. 7. Respiratory failure. Resolved. 8. History of polysubstance abuse. Actually he was admitted with mental status changes due to substance withdrawal at the moment of admission. 9. Pending rehabilitation center placement. 10. Bacteremia due to vancomycin-resistant Group B. cc: Zachariah Chino MD
--- NOTE | 2018-10-07 16:20 | NEPHROLOGY PROGRESS NOTE ---
DATE: 10/07/2018 SUBJECTIVE: No complaints. He tolerated dialysis today without difficulty. OBJECTIVE: Vital Signs: Blood pressure 130/74, heart rate 88, respirations 20, afebrile. General: No acute distress. Skin: Warm and dry. Conjunctivae are pink. Neck: Neck veins are not distended. Heart: Regular with S4. Lungs: Equal. No crackles. Abdomen: Soft, nontender. Bowel sounds present. Extremities: No edema, clubbing or cyanosis. IMPRESSION: Acute kidney injury. No recovery. He does state he has voided a couple times in the last 24 hours. He had dialysis today. No changes. cc: Dilip Carmona MD
[2018-10-07] MEDS: ATIVAN IV PRN (17:33)
[2018-10-08] MEDS: NICODERM PATCH TD SCH ×2 (02:16→02:26)
[2018-10-08] MEDS: ATIVAN IV PRN (02:16)
[2018-10-08] MEDS: HUMULIN R SUBQ SCH ×4 (06:03→21:30)
[2018-10-08] MEDS: PRILOSEC PO SCH (06:11)
[2018-10-08 06:25] LABS: BASO# 0.04 X1000 (0.0-0.2); BASO% 0.5 % (0.0-0.8); EOS# 0.41 X1000 (0.0-0.7); EOS% 5.4 % (0.0-10.0); HEMATOCRIT 22.1 % (42.0-52.0); HEMOGLOBIN 6.8 g/dL (14.0-18.0); IMM GRAN# 0.02 X1000 (0.0-0.04); IMM GRAN% 0.3 % (0.0-0.5); LYMPH# 2.24 X1000 (1.2-3.4); LYMPH% 29.4 % (20.5-51.1); MCH 31.6 PG (27-31); MCHC 30.8 g/dL (33-37); MCV 102.8 FL (81-99); MONO# 0.72 X1000 (0.11-0.59); MONO% 9.4 % (1.7-9.3); MPV 8.7 FL (7.4-10.4); PLT 299 X1000 (130-400); RBC 2.15 XMIL (4.7-6.1); RDW 13.9 % (11.5-14.5); WBC 7.63 X1000 (4.8-10.8)
[2018-10-08 06:42] LABS: CREATININE 3.2 mg/dL (0.7-1.2)
[2018-10-08] MEDS: HEPARIN SUBQ SCH ×2 (07:58→17:23)
[2018-10-08] MEDS: FOLIC ACID PO SCH (08:00)
[2018-10-08] MEDS: CENTRUM SILVER PO SCH (08:00)
[2018-10-08] MEDS: PERIDEX MT SCH ×2 (08:00→19:59)
[2018-10-08] MEDS: OXY IR PO PRN ×2 (08:00→15:54)
[2018-10-08] MEDS: CULTURELLE NG SCH ×2 (08:00→19:59)
[2018-10-08] MEDS: VITAMIN B-1 PO SCH (08:01)
[2018-10-08] MEDS: ICAR-C PO SCH ×2 (08:01→19:59)
[2018-10-08 09:37] LABS: HEMATOCRIT 23.5 % (42.0-52.0); HEMOGLOBIN 7.3 g/dL (14.0-18.0)
--- NOTE | 2018-10-08 14:14 | PROGRESS NOTE ---
DATE: 10/08/2018 SUBJECTIVE: Patient resting comfortably in bed. OBJECTIVE: Vital signs: Temperature 98.8 degrees, pulse 87, respirations 20, blood pressure 123/58, oxygen saturation 100%. HEENT: Patient is atraumatic, normocephalic. Cardiovascular: S1, S2. Respiratory System: Has evidence of good entry bilaterally. Abdomen: Soft, nontender. No masses felt. He does have a wound VAC in the region of the right hip. Extremities: Patient does have a left below-knee amputation and also edema in the right lower extremity. Central nervous system: Awake, alert, well oriented. LABORATORY DATA: WBC 9.8, hematocrit is 26.3, hematocrit 36.5 with a platelet count of 306,000. WBC 7.63, hematocrit 23.5, with a platelet count of 299,000. Sodium is 136, potassium is 4.0, chloride is 101, bicarbonate is 25, BUN is 10, creatinine is 3.2. ASSESSMENT AND PLAN: 1. Right hip also status post necrotizing fasciitis. The patient does have a wound VAC in that area. 2. Chronic kidney disease. Nephrology following. Patient on dialysis. 3. Vancomycin-resistant Enterococcus (VRE) bacteremia. The patient has completed antibiotic course. 4. Anemia. We will type, cross, transfuse 1 unit of packed red blood cells with next hemodialysis session. 5. Chronic hepatitis C virus infection. Follow up with Gastroenterology post discharge. 6. Encephalopathy, resolved. 7. Folic acid deficiency. Continue replacement. 8. Respiratory failure, resolved. 9. Placement. Amusement Park Entertainer consulted to assist us with placing this patient following discharge. cc: Taiwo Camacho MD
[2018-10-09] MEDS: OXY IR PO PRN ×3 (00:05→21:16)
[2018-10-09] MEDS: ATIVAN IV PRN (01:55)
[2018-10-09] MEDS: HEPARIN SUBQ SCH ×3 (01:56→17:25)
[2018-10-09] MEDS: PRILOSEC PO SCH (06:11)
[2018-10-09] MEDS: HUMULIN R SUBQ SCH ×4 (06:42→21:11)
[2018-10-09 06:50] LABS: CALCIUM 8.5 mg/dL (8.8-10.2); CREATININE 4.3 mg/dL (0.7-1.2)
[2018-10-09] MEDS: VITAMIN B-1 PO SCH (09:49)
[2018-10-09] MEDS: NICODERM PATCH TD SCH (09:49)
[2018-10-09] MEDS: FOLIC ACID PO SCH (09:50)
[2018-10-09] MEDS: ICAR-C PO SCH ×2 (09:50→21:11)
[2018-10-09] MEDS: CENTRUM SILVER PO SCH (09:50)
[2018-10-09] MEDS: CULTURELLE NG SCH ×2 (09:50→21:11)
[2018-10-09] MEDS: PERIDEX MT SCH ×2 (09:50→21:11)
--- NOTE | 2018-10-09 10:09 | NEPHROLOGY PROGRESS NOTE ---
DATE: 10/09/2018 TIME SEEN: 06:40. SUBJECTIVE: Mr. Boyce is sitting up in bed. States that he wants to go home. He is unsure if he still wants to go to rehab if he can get somebody to come into his home and assist him. OBJECTIVE: Vitals: His most recent vital signs, temperature 98.4 degrees, blood pressure 122/61, heart rate 79, respirations 20. He is on room air, last recorded saturation 98% . General: This is a 58-year-old male resting quietly in bed. He appears chronically ill, no acute distress. Skin: Warm and dry. HEENT: Normocephalic, atraumatic. Conjunctiva is pale. He has JESSIKA. Mucous membranes are dry. Neck: Supple. Trachea midline. No evidence of JVD. Cardiovascular: Regular rate and rhythm. S4 is present. Lungs: Clear to auscultation bilaterally. Equal excursion on room air. Abdomen: Soft, nontender, positive bowel sounds. Genitourinary: The patient has had 600 mL out to void documented in the last 24 hours. Urine output has improved over the weekend. Extremities: The patient continues with wound VAC, the patient has a left BKA. Wound VAC remains intact to the right lateral posterior thigh with necrotizing fasciitis. Some swelling noted in that area. Neurological: Alert and oriented to person and to place and most recent events. INPUT AND OUTPUT: He has had 1720 in. He has had 600 out to void. LABORATORY DATA: Sodium 134, potassium 4, chloride 97, CO2 27, BUN 13, creatinine 4.3, glucose 101, anion gap is 10, calcium 8.5, hemoglobin 7.3, hematocrit 23.5. ASSESSMENT AND PLAN: 1. Acute kidney injury without recovery. Patient's urine output has continued to improve. He had 600 mL documented in the last 24 hours, 800 mL in 48. Patient has a tunnel catheter to the right chest wall. This is dry and intact. We will plan for dialysis again in the a.m. No indications for intervention today, though we will continue to monitor his input and output. 2. Electrolytes and acid-base balance. These are acceptable. 3. Anemia. This is low. We will defer to the primary care team. The patient had a unit of packed red blood cells ordered yesterday. 4. Necrotizing fasciitis. This is followed by the primary care and Surgery. I would like to thank you for allowing us to follow with this patient. Dictated by ANGEL Mcgrath for Dilip Carmona MD Face to face encounter, data reviewed, discussed with Eleanor Valdez. I agree with the above assessment and plan of care. cc: ANGEL Mcgrath MD [facility]
--- NOTE | 2018-10-09 10:59 | GASTROENTEROLOGY PROGRESS NOTE ---
DATE: 10/09/2018 SUBJECTIVE: There is resting in bed. He is feeling better. He denies any signs of nausea or vomiting. He denies any new complaints of nausea or vomiting. He is moving his bowels. He is eating better. He denies any abdominal pain. I discussed the hepatitis C results with him. His hepatitis C antibody was positive but his hepatitis C- PCR has been negative. He has a prior history of treatment. Vital signs: Temperature 98.4, pulse rate 79, respiratory rate 20, blood pressure 122/61 saturating 98% on room air. General Appearance: Moderately built, lying in bed, in no acute distress. HEENT: Pale conjunctivae. No icterus. Neck: Supple. Abdomen: Soft, nontender, nondistended. No guarding. Extremities: No cyanosis, clubbing. He has left below- knee amputation. Neurologic: He is alert, awake, oriented x 3. LABS: Hemoglobin and hematocrit is 7.3 and 23.1, white count 7.6, platelet count of 299,000, sodium 130 potassium 4, chloride 97, bicarb 20, anion gap 10, BUN of 13 creatinine of 4.3, glucose of 101, calcium is 8.5. Blood culture x2 negative after 5 days from 09/27/2018. IMPRESSION AND PLAN: 1. Hepatitis C antibody positive, but PCR is negative. Prior to history of treatment he does not have any active virus in the blood. 2. Alcoholism. Patient was counseled to quit alcohol completely. He will continue on thiamine once daily, and multivitamin once daily and folic acid once daily. 3. Gastrointestinal prophylaxis with Prilosec 20 mg daily. 4. Anemia. He will continue iron C b.i.d. and multivitamin once daily. 5. DVT prophylaxis heparin 5000 units every 8 hours. 6. Tobacco abuse. Patient is on nicotine patch. 7. Vancomycin-resistant Enterococcus bacteremia from the right hip infection which is complicated with necrotizing fasciitis. He is on antibiotics and wound VAC. He also continues on Culturelle probiotics. 8. Encephalopathy is resolved. 9. The above plans were discussed with the patient. All questions answered. Disposition: Disposition the patient will follow up in the clinic in 4 to 6 weeks of discharge for outpatient EGD and colonoscopy to workup his anemia. The above plans were discussed with the patient and all questions were answered. Please call us with any further questions. cc: Wesley Roth MD MTDD
--- NOTE | 2018-10-09 15:26 | PROGRESS NOTE ---
DATE: 10/09/2018 SUBJECTIVE: The patient is resting comfortably in bed. OBJECTIVE: Vital signs: Temperature is 98.4 degrees, pulse 72, respirations 14, blood pressure is 125/55, oxygen saturation is 100%. HEENT: Atraumatic, normocephalic. Cardiovascular: S1, S2. Respiratory system: Has evidence of good air entry bilaterally. Abdomen: Soft, nontender. No masses felt. Extremities: The patient has a left below-knee amputation as well as evidence of edema in the right lower extremity. Has a wound VAC in the region of the right hip area. This is over the wound in that site. LABORATORY DATA: Sodium 134, potassium 4.0, chloride is 97, bicarb 27, BUN is 30, creatinine is 4.3. ASSESSMENT AND PLAN: 1. Right hip also status post necrotizing fascitis. Wound VAC over the wound site. Surgery following. 2. Renal dysfunction. Nephrology following. Patient is currently on dialysis. 3. Vancomycin-resistant enterococcus bacteremia. The patient has completed antibiotic course. 4. Anemia. The patient is profoundly anemic. We will type, cross, transfuse 1 unit of packed red blood cells with next hemodialysis session. 5. Chronic hepatitis C virus infection. Follow up with GI after discharge from the hospital. 6. Encephalopathy resolved. 7. Folic acid deficiency. Continue replacement. 8. Respiratory failure. Resolved. 9. Placement. Outsole Compressor consulted to assist with placing the patient post discharge. cc: Taiwo Camacho MD
[2018-10-09] MEDS ORDERED: DULCOLAX PR ONE (21:21)
[2018-10-09] MEDS ORDERED: DULCOLAX PO ONE (21:21)
[2018-10-10] MEDS: HEPARIN SUBQ SCH ×2 (00:19→09:27)
[2018-10-10] MEDS: ATIVAN IV PRN (02:42)
[2018-10-10] MEDS: OXY IR PO PRN ×2 (04:43→12:34)
[2018-10-10] MEDS: PRILOSEC PO SCH ×2 (04:43→06:33)
[2018-10-10] MEDS ORDERED: NS 2,000 ML MISC PRN (06:10)
[2018-10-10] MEDS ORDERED: TIGHT: 0.2 ML/HR FOR DIALYSIS MISC PRN (06:10)
[2018-10-10] MEDS ORDERED: HEPARIN IV PRN (06:10)
[2018-10-10 06:41] LABS: CALCIUM 8.3 mg/dL (8.8-10.2); CREATININE 4.2 mg/dL (0.7-1.2); POTASSIUM 3.9 mmol/L (3.5-5.1)
[2018-10-10] MEDS: HUMULIN R SUBQ SCH ×2 (06:59→11:18)
[2018-10-10] MEDS: CENTRUM SILVER PO SCH (09:26)
[2018-10-10] MEDS: CULTURELLE NG SCH (09:26)
[2018-10-10] MEDS: NICODERM PATCH TD SCH (09:26)
[2018-10-10] MEDS: VITAMIN B-1 PO SCH (09:26)
[2018-10-10] MEDS: PERIDEX MT SCH (09:26)
[2018-10-10] MEDS: ICAR-C PO SCH (09:26)
[2018-10-10] MEDS: FOLIC ACID PO SCH (09:26)
--- NOTE | 2018-10-10 09:44 | NEPHROLOGY PROGRESS NOTE ---
DATE: 10/10/2018 TIME SEEN: 06:55. SUBJECTIVE: Mr. Boyce is resting quietly in bed. He states that he would like to be discharged or go to rehab. He is tired of sitting in hospital. OBJECTIVE: Vitals: His most recent vital signs, the patient's last temperature 98.6 degrees, blood pressure 116/51, heart rate 86, respirations 20. He is on room air. Last recorded saturation is 100%. General: This is a 58-year-old male who is currently resting quietly in bed. He appears chronically ill. He is in no acute distress. Skin: Warm and dry. HEENT: Normocephalic, atraumatic. Conjunctiva is pale pink. He has JESSIKA. Mucous membranes are dry. Neck: Supple. Trachea midline. No JVD. Cardiovascular: Slightly irregular today. No murmur or gallop. Lungs: Clear to auscultation bilaterally. Equal excursion. Abdomen: Soft, nontender. Positive bowel sounds. Genitourinary: Not inspected. Patient states that he has been voiding with over a liter out in the last 48 hours. Extremities: The patient has a wound VAC intact to the right lateral posterior thigh. Left BKA, no edema. No clubbing or cyanosis. Neurological: He is alert to person and place. INPUT AND OUTPUT: He has had 1484 in, 400 mL out to void. LABORATORIES: Sodium is 131, potassium 3.9, chloride 94, CO2 26, BUN 19, creatinine 4.2, glucose 107, anion gap of 11, calcium is 8.3. The patient had a previous hemoglobin of 7.3 on 10/08. We will repeat a CBC in the morning. ASSESSMENT AND PLAN: 1. Acute kidney injury. Patient has not had any recovery. It is noted that he is starting to increase on his urinary output. We will plan for dialysis today and then again watch his BUN and creatinine and his urine output in the next 24 to 48 hours. He is to be placed on a 2K bath. He is to dialyze for 3.5 hours. We will attempt to pull 2 L of ultrafiltration as tolerated. 2. Electrolytes and acid-base balance with correction on dialysis. 3. Anemia. This remains low. We will check a CBC in the a.m. 4. Necrotizing fasciitis. Followed by the Primary Care and Surgery Team. I would like to thank you for allowing us to follow with this patient. Dictated by ANGEL Mcgrath for Dilip Carmona MD Face to face encounter, data reviewed, discussed with Eleanor Valdez on 10/10/18. I agree with the above assessment and plan of care. cc: ANGEL Mcgrath MD [facility]
[2018-10-10 12:29] VITALS: BP 122/72
--- NOTE | 2018-10-10 20:15 | DISCHARGE SUMMARY ---
ADMISSION DATE: 09/09/2018 DISCHARGE DATE: 10/10/2018 CONSULTATIONS: 1. Dr. Ky Groves with General Surgery. 2. Dr. Yehuda Murray with Neurology. 3. Dr. Segun Coffey with Infectious Disease. 4. Dr. Carmona with Nephrology. 5. Dr. Cody Hedrick with Gastroenterology. 6. Dr. Campo with Pulmonology. PERTINENT PROCEDURES: 1. Head CT: Minimal chronic microvascular changes and mild atrophy. No evidence of acute disease. 2. Abdominal ultrasound: Hepatic steatosis. No evidence of acute disease. 3. Abdominal x-ray: Osteosclerosis. This may be the result of secondary hyperparathyroidism; however, the possibility of osseous metastatic disease cannot be excluded. No evidence of bowel obstruction. 4. Insertion of dialysis catheter performed by Dr. Elliott Mitchell. 5. Abdominal x-ray: No acute abnormality. 6. Insertion of tunneled dialysis catheter with fluoroscopic and ultrasound guidance and removal of central venous line performed by Dr. Elliott Mitchell. DISCHARGE DIAGNOSES: 1. Acute kidney injury with no recovery. The patient has been receiving hemodialysis throughout his admission. He will be set up with hemodialysis through Nephrology on Tuesday, Tuesday, Tuesday here in [place]. Electrolyte acid and base have been corrected with dialysis. Anemia remains low. He has not required any transfusions and is hemodynamically stable. 2. Vancomycin-resistant Enterococcus group B septic shock from the right hip, complicated with necrotizing fasciitis. He has been on IV antibiotics. I believe these will continue with hemodialysis. 3. Right-sided necrotizing fasciitis, status post wound VAC placement. Initial plan was for the patient to go to rehab; however, the patient has decided to return home today. He refused his dialysis treatment today, and he will be discharged home with [facility] and will continue with wet-to-dry dressings as instructed per general surgery and will follow up in the Wound Clinic at [place] in 1 week. 4. Acute tubular necrosis without recovery, now on dialysis. See #1. 5. Acute encephalopathy secondary to hospital acquired delirium, resolved. 6. Microcytic anemia. B12 and folate. The patient is receiving folic acid. 7. Acute respiratory failure, resolved. 8. History of polysubstance abuse. He was actually admitted for mental status changes due to substance withdrawal at his admission. 9. Bacteremia due to vancomycin-resistant group B. Again patient has been getting IV antibiotics. 10. Hepatitis C antibody positive, but PCR is negative prior to history of treatment. He does not have any active virus in the blood. 11. Alcoholism. He has been counseled to quit alcohol completely. Will need to continue on thiamine daily and multivitamin daily as well as Prilosec. HOSPITAL COURSE: Briefly, Mr. Boyce is a 58-year-old male with a history of necrotizing fasciitis, right hip ulcer, coronary artery disease, diabetes mellitus type 2, hepatitis C, congestive heart failure, chronic kidney disease, who was at [facility]. He was sent from this facility due to the patient being altered agitated and pulling off his wound VAC. He was evaluated in the ED. He continued to be moderately altered. He was initially admitted to the ICU. Follow neuro checks closely. Obtain urine sample as well as blood cultures and wound cultures. Started on broad-spectrum antibiotics as well as placed him back on his wound VAC. They felt his encephalopathy was withdrawing from his polysubstance abuse. One of his 2 blood cultures was positive for Enterococcus faecium. Infectious Disease was brought on board. His antibiotics were changed accordingly. He was found to have a VRE group D in the blood as well as in the right hip. He also developed an acute kidney injury associated with severe acidosis. Nephrology was brought on board. The patient did not have any recovery or make urine output. He was initiated on hemodialysis. He also suffered from acute respiratory failure , was cycled on and off BiPAP followed by pulmonology. Unfortunately, he has had no recovery in his acute kidney injury. He will require hemodialysis that has been set up for him on Tuesday, Tuesday and Tuesday at 12 p.m. in [place]. Initially, he was going to go to rehab with his wound VAC; however, the patient and family have decided to go home with home health. He will do wet-to- dry dressings. He has received a full course of IV antibiotics for his infection and will follow up in the wound clinic in 1 week. As of note today, the patient refused to participate in his dialysis treatment. VITAL SIGNS: At time of discharge, temperature was 97.5 degrees axillary, heart rate 108, respirations 22, blood pressure 122/72, O2 is 100% on room air. DISCHARGE DIET: Renal. DISCHARGE MEDICATIONS: 1. Tylenol 650 mg p.o. q.6 hours p.r.n. 2. Folic acid 1 mg p.o. daily. 3. Icar-C 1 each p.o. b.i.d. 4. Culturelle 1 each p.o. b.i.d. 5. Prilosec 20 mg p.o. daily. 6. OxyIR 5 mg p.o. q.8 hours p.r.n. 7. Thiamin 100 mg p.o. daily. FOLLOWUP: Mr. Boyce is being discharged back home with [facility]. He is to continue with wet-to-dry dressing changes daily. He will be placed on hemodialysis Tuesday, Tuesday, Tuesday. He is to follow up in the wound clinic within 1 week. He also has an appointment with GI with Dr. Hedrick on 11/13/2018 at 9 a.m. He can return to the ED or call 911 for any worsening of symptoms. He has been educated on alcohol abstinence as well as educated to take his medications properly. Again, he can return to the ED or call 911 for any worsening of symptoms. Discharge time: 35 minutes Dictated by ANGEL Caballero for Zachariah Chino MD Discharge time: 35 minutes cc: MD Dilip Alvarado MD Jason R. Seale, MD Michael Kelso, MD MTDD
== END 2018-10-10 17:14 | disposition home health service (06) | DRG 871 ==
LOC: SUPCPDRO → ED 18:23 → EDIPHOLD 22:48 → SUATTDRO 22:48 → ICU 09-10 03:15 → 4N 09-26 18:07
PROVIDERS: ATTEND Internal Medicine
CPT/HCPCS: 51702; 70450; 71010; 71045; 74000; 74018; 76700; 77001; 80048; 80053; 80069; 80074; 80076; 80101; 80301; 80307; 80320; 80324; 80345; 80346; 80353; 80358; 80361; 80365; 81001; 82009; 82055; 82140; 82550; 82570; 82607; 82728; 82746; 82784; 82805; 82948; 82977; 83036; 83605; 83735; 83880; 83935; 83992; 84100; 84155; 84156; 84165; 84300; 84540; 85014; 85018; 85025; 85027; 85045; 85610; 85730; 86038; 86039; 86334; 86850; 86900; 86901; 86920; 87040; 87045; 87046; 87070; 87077; 87088; 87177; 87186; 87205; 87324; 87449; 87522; 88300; 88313; 89055; 93005; 93010; 94660; 94761; 94799; 96361; 96365; 96375; 96376; 97110; 97161; 97530; 99285; A9270; C1725; C1750; C9113; G0431; G0434; G0479; G0480; G6040; J0690; J0692; J0878; J1170; J1200; J1450; J1630; J1644; J1940; J2060; J2405; J3370; J3411; J3475; J3480; J3486; J7030; J7040; J7050; J7070; S0164; XXXXX